=== PATIENT | female | born 1955 | race Caucasian/White ===

== ENCOUNTER 2019-08-13 13:53 | Outpatient (CLI) | payer OTHER, MEDICARE, SELFPAY ==
--- NOTE | ~2019-08-13 | XR_ITS ---
EXAMINATION: XR chest 2V EXAM DATE: 08/13/2019 14:13 INDICATION: Pneumonia. Cough. TECHNIQUE: Frontal and lateral projections of the chest obtained and reviewed. Comparison is made to prior examination from 05/28/2019. FINDINGS: The lungs are clear. There are no pleural effusions. The cardiomediastinal silhouette is within normal limits. There is no pneumothorax suspected. The bones and soft tissues are unremarkab le. Cervical fusion hardware. There are cholecystectomy clips. IMPRESSION: Unremarkable chest x-ray exam. Reviewed, dictated and finalized at location A. STILL OPERATOR
== END 2019-08-13 13:54 | disposition home or self-care (01) ==
LOC: ANHIMG 13:56
PROVIDERS: PCP Internal Medicine; Visit Provider Internal Medicine
DX: J18.9 Pneumonia, unspecified organism (principal)
CPT/HCPCS: 71046

== ENCOUNTER 2019-09-05 07:37 | Outpatient (CLI) | payer OTHER, MEDICARE, SELFPAY ==
--- NOTE | 2019-09-05 07:53 | ECHO_ITS ---
Patient Info Name: Desiree Ghosh Age: 63 years : 1955 Gender: Female Ht: 63 in Wt: 247 lbs BSA: 2.30 m2 HR: 65 bpm BP: 152 / 70 mmHg Technical Quality: Fair Exam Date: 09/05/2019 8:01 AM Exam Location: [facility] Pulmonary Patient Status: Outpatient Admit Date: 09/05/2019 Staff Ordering Physician: Nunu Spring MD Resident Athletic Trainer: Tato Tamez, AMARA, RT Attending Provider: Nunu Spring MD Referring Physician: Saw MILNER; Exam Type: CA echo doppler color flow Study Info Indications R06.02 - Shortness of breath Complete two-dimensional, color flow and Doppler transthoracic echocardiogram is performed. Summary 1. Left ventricular chamber dimension is normal. 2. Left ventricular systolic function is normal, estimated at 55-60%. 3. The left ventricular diastolic function is grade I diastolic dysfunction. 4. E/e' 9 is minimally elevated. 5. Global longitudinal strain is essentially normal at -16.9%. 6. No pulmonary hypertension, estimated pulmonary arterial systolic pressure is 34 mmHg. Left Ventricle E/e' 9 is minimally elevated. Global longitudinal strain is essentially normal at -16.9%. Left ventricular chamber dimension is normal. Left ventricular systolic function is normal, estimated at 55-60%. The left ventricular diastolic function is grade I diastolic dysfunction. Right Ventricle Right ventricular chamber dimension is not well visualized. Left Atria Left atrial chamber dimension is normal. Right Atria Right atrial chamber dimension is not well visualized. Aortic Valve Cannot determine number of aortic valve leaflets. The aortic valve is not well visualized. There is no aortic valve stenosis. There is no aortic valve regurgitation. Pulmonic Valve The pulmonic valve is not well visualized. Mitral Valve There is no mitral valve stenosis. There is no mitral valve regurgitation. Tricuspid Valve There is no tricuspid valve regurgitation. No pulmonary hypertension, estimated pulmonary arterial systolic pressure is 34 mmHg. Pericardium/Pleural There is no pericardial effusion. Inferior Vena Cava Normal inferior vena cava with >50% collapse upon inspiration consistent with normal right atrial pressure, 5 mmHg. Aorta The aortic root size at the sinus of Valsalva is not well visualized. Left Ventricular Outflow Tract Name Value Normal LVOT 2D LVOT Diameter 1.9 cm LVOT Doppler LVOT Peak Gradient 6 mmHg LVOT Mean Gradient 4 mmHg LVOT VTI 27 cm LVOT VTI/AV VTI Ratio 0.8 LVOT Stroke Volume 73 ml LVOT CO 4.8 l/min LVOT CI 2.1 l/min/m2 Pulmonic Valve Name Value Normal PV Doppler PV Peak Gradient
[2019-09-05 09:09] LABS: Alveolar/Arterial O2 Gradient 28.6 mmHg; Base Excess ABG 2.3 mEq/l (+/-2.0); Fractional Inspired Oxygen 21 %; HCO3 ABG 26.6 mEq/l (22.0-26.0); Methemoglobin ABG 0.2 %THb (0-1.5); Oxygen Saturation ABG 95.2 % (95.0-100.0); Oxyhemoglobin 93.4 % THb (90.0-100.0); PO2 ABG 73.2 mmHg (80.0-100.0); PO2 FiO2 Ratio Arterial Blood 3.49 %; Reduced Hemoglobin 6.4 %THb (0-5.0); Total Hemoglobin 13.7 g/dL (12.0-18.0)
[2019-09-05 09:11] LABS: Device ROOM AIR; Modified Allen's Test Pass; Site Drawn RIGHT RADIAL
--- NOTE | 2019-09-08 19:00 | P.PCNPFT_ITS ---
PFT Interpretation PFT Interpretation: DOS: 09/05/2019 REQUESTING: Dr. Spring REASON FOR TESTING: Shortness of breath PULMONARY FUNCTION TESTS Results are reproducible. Spirometry: Normal FEV1, FVC, and FEV1%. No change with bronchodilator. FEF25- 75% is 84%, increases 22% with bronchodilator. Lung volumes: Normal TLC and RV. Increase in RV/TLC ratio consistent with air trapping. Normal airway resistance. Diffusion: DLCO 65%, mildly decreased. Flow volume loop: Normal. IMPRESSION: Normal spirometry, mild air trapping which implies obstruction, and mild diffusion impairment. Lack of response to bronchodilator should not preclude use if clinically indicated. Nunu Spring MD
--- NOTE | 2019-09-08 19:03 | WPDSIXMINUTE ---
Six Minute Walk Six Minute Walk: DOS: 09/05/2019 REQUESTING: Dr. Spring REASON FOR TESTING: Shortness of breath SIX MINUTE WALK This test was conducted per ATS guidelines. Initial saturation was 98%, pulse 76. The patient walked for 6 minutes without stopping, completing 1000 feet/304 meters. Saturation at the end of the test was 96% and pulse was 89. IMPRESSION: Normal walk study without desaturation. No supplemental O2 needed with exertion. Nunu Spring MD
== END 2019-09-05 07:38 | disposition home or self-care (01) ==
PROVIDERS: PCP Internal Medicine; Visit Provider Internal Medicine Critical Care Medicine
DX: J44.9 Chronic obstructive pulmonary disease, unspecified (principal); Z12.2 Encounter for screening for malignant neoplasm of respiratory organs; R06.02 Shortness of breath; Z87.891 Personal history of nicotine dependence
CPT/HCPCS: 36600; 82375; 82805; 83050; 93306; 94060; 94618; 94726; 94729

== ENCOUNTER 2019-09-11 12:09 | Outpatient (CLI) | payer OTHER, MEDICARE, SELFPAY ==
--- NOTE | ~2019-09-11 | XR_ITS ---
EXAMINATION: XR knee RT 2V DATE: 09/11/2019 12:32 INDICATION: Right knee injury. TECHNIQUE: 2 views of right knee were obtained. COMPARISON: None. FINDINGS: Bone alignment is normal. No fracture. There is mild tricompartmental osteoarthritis. No kn ee joint effusion. IMPRESSION: 1. Mild right knee osteoarthritis. Reviewed, dictated and finalized at location A. ECTOR COLD WORKING
--- NOTE | ~2019-09-11 | XR_ITS ---
EXAMINATION: XR knee LT 2V DATE: 09/11/2019 12:32 INDICATION: Left knee injury. TECHNIQUE: 2 views of left knee were obtained. COMPARISON: None. FINDINGS: Bone alignment is normal. No fracture. There is mild tricompartmental osteoarthritis. No kn ee joint effusion. IMPRESSION: 1. Mild left knee osteoarthritis. Reviewed, dictated and finalized at location A. CTOR PEOPLESOFT
== END 2019-09-11 12:10 | disposition home or self-care (01) ==
PROVIDERS: PCP Internal Medicine; Visit Provider Internal Medicine
DX: S89.90XA Unspecified injury of unspecified lower leg, initial encounter (principal); M17.0 Bilateral primary osteoarthritis of knee
CPT/HCPCS: 73560

== ENCOUNTER 2019-09-19 07:50 | Outpatient (CLI) | payer OTHER, MEDICARE, SELFPAY ==
--- NOTE | ~2019-09-19 | DEXA_ITS ---
Bone Density Report Name: Desiree Ghosh Age: 63 Sex: Female Ethnicity: White Date of : 1955 Indication: postmenopausal; height loss; inflammatory bowel disease; prior fracture; asthma or emphysema; hysterectomy; Referring Provider: BRYN MONTOYA Study: Bone densitometry was performed. Exam Date: September 19, 2019 Accession number: [id number] Bone Density: Region BMD T-score Z-score Classification AP Spine (L1-L4) 0.948 -0.9 0.7 Normal Femoral Neck (Left) 0.789 -0.5 0.9 Normal Total Hip (Left) 1.123 1.5 2.6 Normal Total Hip Bilateral Avg 1.100 1.3 2.4 Normal Femoral Neck (Right) 0.783 -0.6 0.8 Normal Total Hip (Right) 1.075 1.1 2.2 Normal World Health Organization criteria for BMD impression classify patients as: Normal (T-score at or above -1.0), Osteopenia (T-score between -1.0 and -2.5), or Osteoporosis (T-score at or below -2.5). 10-year Fracture Risk: FRAX not reported because: All T-scores for Spine Total, Hip Total, Femoral Neck at or above -1.0 Previous Exams: Region Exam Age BMD T-score BMD Change BMD Change Date g/cm2 vs Baseline vs Previous AP Spine(L1-L4) 09/19/2019 63 0.948 -0.9 0.071(8.1%)# -0.013(-1.4%)# 04/20/2012 56 0.961 -0.8 0.084(9.6%)# 0.084(9.6%)02/11/2006 50 0.877 -1.5 Total Hip(Left) 09/19/2019 63 1.123 1.5 0.045(4.1%)# 0.066(6.2%)# 04/20/2012 56 1.057 0.9 -0.021(-2.0%)# -0.021(-2.0%)# 02/11/2006 50 1.078 1.1 Total Hip(Right) 09/19/2019 63 1.075 1.1 -0.010(-1.0%)# 0.020(1.9%)# 04/20/2012 56 1.055 0.9 -0.031(-2.8%)# -0.031(-2.8%)# 02/11/2006 50 1.085 1.2 *Denotes significance at 95% confidence level, LSC for AP Spine = 0.022 g/cm2, LSC for Total Hip = 0.027 g/cm2 Clinical Information Provided by Patient: Has had a low trauma fracture Has the following medical conditions: Asthma or Emphysema, Inflammatory bowel diseases, Hysterectomy Patient maximum height was 64 Menopause Age: 24 No regular weight bearing exercise Does not regularly consume dairy products Onset of menses at age 13 Number of children 2 Impression: The patient has normal bone mass. The patient has risk factors, including: previous fracture. No significant bone loss was observed. Discussion: BONE DENSITY IS ABOVE THE MINIMUM DESIRABLE LEVEL AT ALL SKELETAL SITES TESTED. This patient?s bone mineral density is above the minimum desirable level (T-score -1.0 or better) at all sites ann
== END 2019-09-19 07:51 | disposition home or self-care (01) ==
PROVIDERS: PCP Internal Medicine; Visit Provider Obstetrics & Gynecology
DX: Z13.820 Encounter for screening for osteoporosis (principal); R30.9 Painful micturition, unspecified; Z78.0 Asymptomatic menopausal state
CPT/HCPCS: 77080; 87077; 87086; 87088; 87186

== ENCOUNTER 2020-01-14 09:49 | Outpatient (CLI) | payer OTHER, MEDICARE, SELFPAY ==
[2020-01-14 10:23] LABS: Alanine Aminotransferase 16 U/L (4-35); Albumin Level 4.1 g/dL (3.5-5.1); Alkaline Phosphatase 127 U/L (38-126); Aspartate Amino Transferase 23 U/L (14-36); Bilirubin,Total 0.4 mg/dL (0.2-1.3); Blood Urea Nitrogen 20 mg/dL (7-17); Calcium 8.7 mg/dL (8.4-10.2); Carbon Dioxide 24 mmol/L (22-30); Chloride 105 mmol/L (98-107); Estimated Glomerular Filt Rate > 60; Glucose 130 mg/dL (65-105); Potassium 3.9 mmol/L (3.4-5.0); Sodium 137 mmol/L (137-145)
[2020-01-14 10:44] LABS: Creatinine Urine 128.6 mg/dL
[2020-01-14 10:47] LABS: MALB Creatinine Ratio 6.5 mg/g (0-30); Microalbumin Urine Random 8.4 mg/L (0-16.7)
[2020-01-14 10:48] LABS: Hemoglobin A1C 5.9 % (<5.7)
[2020-01-14 10:55] LABS: Thyroid Stimulating Hormone 0.979 uIU/mL (0.465-4.680)
== END 2020-01-14 09:50 | disposition home or self-care (01) ==
LOC: ANHLAB 09:56
PROVIDERS: PCP Internal Medicine; Visit Provider Internal Medicine
DX: E11.9 Type 2 diabetes mellitus without complications (principal); E03.9 Hypothyroidism, unspecified
CPT/HCPCS: 36415; 80053; 82043; 83036; 84443

== ENCOUNTER 2020-04-20 10:56 | Outpatient (CLI) | payer OTHER, MEDICARE, SELFPAY ==
[2020-04-20 12:01] LABS: Alanine Aminotransferase 15 U/L (4-35); Alkaline Phosphatase 106 U/L (38-126); Anion Gap 5 mmol/L (8-16); Aspartate Amino Transferase 22 U/L (14-36); Bilirubin,Total 0.5 mg/dL (0.2-1.3); Blood Urea Nitrogen 15 mg/dL (7-17); Calcium 9.2 mg/dL (8.4-10.2); Carbon Dioxide 33 mmol/L (22-30); Chloride 102 mmol/L (98-107); Estimated Glomerular Filt Rate > 60; Glucose 105 mg/dL (65-105); Potassium 4.2 mmol/L (3.4-5.0); Sodium 140 mmol/L (137-145)
[2020-04-20 12:07] LABS: Hemoglobin A1C 5.3 % (<5.7)
[2020-04-20 12:08] LABS: Creatinine Urine 218.7 mg/dL
[2020-04-20 12:12] LABS: MALB Creatinine Ratio 7.2 mg/g (0-30); Microalbumin Urine Random 15.7 mg/L (0-16.7)
== END 2020-04-20 10:57 | disposition home or self-care (01) ==
PROVIDERS: PCP Internal Medicine; Visit Provider Internal Medicine
DX: E03.9 Hypothyroidism, unspecified (principal); E11.9 Type 2 diabetes mellitus without complications; I10 Essential (primary) hypertension
CPT/HCPCS: 36415; 80053; 82043; 83036

== ENCOUNTER 2020-04-30 10:47 | Outpatient (CLI) | payer OTHER, MEDICARE, SELFPAY | END 2020-04-30 10:48 | disposition home or self-care (01) | LOC: ANHLAB 10:49 | PROVIDERS: PCP Internal Medicine; Visit Provider Internal Medicine | DX: Z20.828 Contact with and (suspected) exposure to other viral communicable diseases (principal) | CPT/HCPCS: 36415; 86769 ==

== ENCOUNTER 2020-05-08 07:34 | Outpatient (CLI) | payer OTHER, MEDICARE, SELFPAY ==
--- NOTE | ~2020-05-08 | NM_ITS ---
EXAMINATION: NM dayami stress w perfusion DATE: 05/08/2020 11:40 INDICATION: Chest pain. Hypertension. TECHNIQUE: Rest images were obtained following intravenous administration of 10 mCi Tc99m tetrofosmin (Myoview). The patient was infused intravenously with Lexiscan (Regadenoson). Then, 81.4 mCi Tc99m t etrofosmin (Myoview) was administered intravenously, and stress images were obtained. Stress images w ere obtained in both supine and prone position. Data was reconstructed into short axis and horizontal and vertical long axis SPECT images. Gated SPECT images were also obtained. COMPARISON: None. FINDINGS: Likely breast attenuation artifact along the anterior and anterolateral wall on the supine rest and stress images which normalizes on the prone post stress images. There is no definite reversi ble or fixed perfusion abnormality to suggest ischemia or infarction. There is normal left ventricul ar chamber size, wall motion and ejection fraction. Left ventricular ejection fraction measures >70% . IMPRESSION: 1. Normal myocardial perfusion at rest and during stress. 2. Left ventricular ejection fraction measuring >70%. Reviewed, dictated and finalized at location B.
--- NOTE | 2020-05-08 07:45 | EST_ITS ---
Patient Info Name: Desiree Ghosh Age: 64 years : 1955 Gender: Female Exam Date: 05/08/2020 9:22 AM Exam Location: [facility] Stress Patient Status: Outpatient Admit Date: 05/08/2020 Staff Ordering Physician: Keshav Cullen MD Attending Provider: Keshav Cullen MD Exercise Technologist: Tessa Lucas RDCS Exam Type: CA stress dayami w NM Study Info Indications R07.89 - Other chest pain A regadenoson stress test was performed. Summary 1. 1. Negative lexiscan stress test for ischemic ST changes by ECG criteria. 2. 2. Baseline hypertension. 3. 3. Nuclear scan to follow and will be reported separately. Please correlate with it. 4. 4. Patient informed of the above results. Protocol: Lexiscan Stress ECG Details Stage: REST Duration (min): 3 min : 41 sec HR (bpm): 62 SBP (mmHg): 146 DBP (mmHg): 83 Stage: REST Duration (min): 12 min : 50 sec HR (bpm): 71 SBP (mmHg): 146 DBP (mmHg): 83 Stage: STAGE 1 Duration (min): 1 min : 0 sec HR (bpm): 93 SBP (mmHg): 169 DBP (mmHg): 79 Stage: RECOVERY Duration (min): 1 min : 0 sec HR (bpm): 85 SBP (mmHg): 173 DBP (mmHg): 83 Stage: RECOVERY Duration (min): 2 min : 0 sec HR (bpm): 76 SBP (mmHg): 173 DBP (mmHg): 83 Stage: RECOVERY Duration (min): 3 min : 0 sec HR (bpm): 72 SBP (mmHg): 150 DBP (mmHg): 84 Stage: RECOVERY Duration (min): 3 min : 3 sec HR (bpm): 72 SBP (mmHg): 150 DBP (mmHg): 84 Rest HR: 71 bpm Peak HR: 93 bpm Rest Sys BP: 146 mmHg Peak Sys BP: 173 mmHg Max Pred HR: 157 bpm % Max Pred HR: 59 % Target HR: 133 bpm Max RPP: 16,089 bpm*mmHg Termination Reason: Completed protocol Cardiac Symptoms: Shortness of breath, Headache Total Time: 1 min : 0 sec Rest Alfaro BP: 83 mmHg Peak Alfaro BP: 83 mmHg Total Dose: 0.4 mg Resting ECG Sinus rhythm, borderline T wave in high lateral leads. Stress ECG No ST changes. Arrhythmias None. Report Signatures
== END 2020-05-08 07:35 | disposition home or self-care (01) ==
PROVIDERS: PCP Internal Medicine; Visit Provider Internal Medicine
DX: R07.89 Other chest pain (principal); I10 Essential (primary) hypertension
CPT/HCPCS: 78452; 93017; A9502; J2785

== ENCOUNTER 2020-05-21 10:01 | Outpatient (CLI) | payer OTHER, MEDICARE, SELFPAY ==
--- NOTE | ~2020-05-21 | MM_ITS ---
EXAMINATION: MM screening bijal BI w eileen HISTORY: Screening mammogram, family history of breast cancer in her sister. TECHNIQUE: Craniocaudal and mediolateral oblique 3-D tomosynthesis images were obtained and synthetic 2-D images were generated. CAD analysis was submitted and interpreted. COMPARISON: 02/22/2019, 07/16/2014, 01/11/2013, 04/20/2012 BREAST PARENCHYMAL COMPOSITION: There are scattered areas of fibroglandular density. FINDINGS: There is no evidence of suspicious mass, calcification, or architectural distortion to sugg est malignancy in either breast. There has been no suspicious interval change. IMPRESSION: 1. No mammographic evidence of malignancy. 2. Recommend routine screening mammography in one year. BI-RADS Category 1: Negative Reviewed, dictated and finalized at location A. R ENTRY ADMINISTRATOR
== END 2020-05-21 10:02 | disposition home or self-care (01) ==
LOC: ANHIMG 10:05
PROVIDERS: PCP Internal Medicine; Visit Provider Internal Medicine
DX: Z12.31 Encounter for screening mammogram for malignant neoplasm of breast (principal)
CPT/HCPCS: 77063; 77067

== ENCOUNTER 2020-06-01 11:32 | Outpatient (CLI) | payer OTHER, MEDICARE, SELFPAY ==
[2020-06-01 12:24] LABS: Anion Gap 7 mmol/L (8-16); Blood Urea Nitrogen 15 mg/dL (7-17); Calcium 9.1 mg/dL (8.4-10.2); Carbon Dioxide 33 mmol/L (22-30); Chloride 99 mmol/L (98-107); Estimated Glomerular Filt Rate > 60; Glucose 139 mg/dL (65-105); Potassium 3.5 mmol/L (3.4-5.0); Sodium 139 mmol/L (137-145)
== END 2020-06-01 11:33 | disposition home or self-care (01) ==
LOC: ANHLAB 11:34
PROVIDERS: PCP Internal Medicine; Visit Provider Internal Medicine
DX: I10 Essential (primary) hypertension (principal)
CPT/HCPCS: 36415; 80048

== ENCOUNTER 2020-07-24 11:39 | Outpatient (CLI) | payer OTHER, MEDICARE, SELFPAY ==
[2020-07-24 12:17] LABS: Alanine Aminotransferase 39 U/L (4-35); Albumin Level 4.2 g/dL (3.5-5.1); Alkaline Phosphatase 79 U/L (38-126); Anion Gap 6 mmol/L (8-16); Aspartate Amino Transferase 36 U/L (14-36); Bilirubin,Total 0.6 mg/dL (0.2-1.3); Blood Urea Nitrogen 16 mg/dL (7-17); Carbon Dioxide 32 mmol/L (22-30); Chloride 100 mmol/L (98-107); Cholesterol 231 mg/dL (0-200); Estimated Glomerular Filt Rate > 60; Glucose 102 mg/dL (65-105); HDL Direct 35 mg/dL; Potassium 3.8 mmol/L (3.4-5.0); Sodium 138 mmol/L (137-145); Triglycerides 172 mg/dL (<150)
[2020-07-24 12:28] LABS: Hemoglobin A1C 5.3 % (<5.7); LDL Cholesterol Direct 167 mg/dL
[2020-07-24 12:41] LABS: Creatinine Urine 178.7 mg/dL
[2020-07-24 12:47] LABS: Microalbumin Urine Random 10.7 mg/L (0-16.7); Thyroid Stimulating Hormone 0.598 uIU/mL (0.465-4.680)
[2020-07-24 12:58] LABS: Vitamin D 25 Hydroxy 27.6 ng/mL
== END 2020-07-24 11:40 | disposition home or self-care (01) ==
PROVIDERS: PCP Internal Medicine; Visit Provider Internal Medicine
DX: E03.9 Hypothyroidism, unspecified (principal); E11.9 Type 2 diabetes mellitus without complications; E55.9 Vitamin D deficiency, unspecified; E78.2 Mixed hyperlipidemia; G47.33 Obstructive sleep apnea (adult) (pediatric); I10 Essential (primary) hypertension; M79.7 Fibromyalgia; Z99.89 Dependence on other enabling machines and devices
CPT/HCPCS: 36415; 80053; 80061; 82043; 82306; 83036; 84443

== ENCOUNTER 2020-11-16 13:29 | Emergency (ER) | payer OTHER, MEDICARE, SELFPAY ==
[2020-11-16 14:03] VITALS: BP 140/89; PULSE 68; RESP 18; TEMP 35.6; O2SAT 96
--- NOTE | 2020-11-16 15:13 | ED.GENADULT ---
HPI - General Adult General Chief complaint: Recheck/Abnormal Lab/Rx Stated complaint: nosebleed hx htn Time Seen by Provider: 11/16/20 14:39 Source: patient, family and RN notes reviewed Mode of arrival: ambulatory Limitations: no limitations History of Present Illness HPI narrative: Patient is a 65-year-old female who presents to emergency department for evaluation of epistaxis that occurred earlier today and resolved patient notes that she felt as though it came on acutely lasted 15 minutes and has resolved no active bleeding since denies any URI symptoms is followed by ENT Dr. Rowland patient denies any other complaints specifically no anticoagulant use in the history patient notes that she plans to see her ENT and will contact him patient on arrival is in no distress denies any complaints Related Data Home Medications Medication Instructions Recorded Confirmed metformin 500 mg tablet 500 mg PO DAILY 10/13/20 11/12/20 Allergies Allergy/AdvReac Type Severity Reaction Status Date / Time acetaminophen Allergy Unknown nausea Verified 11/16/20 14:34 [From Darvocet-N] ciprofloxacin Allergy Unknown BLISTERS Verified 11/16/20 14:34 metronidazole [From Flagyl] Allergy Unknown blisters Verified 11/16/20 14:34 pentazocine [From Talwin] Allergy Unknown Nausea Verified 11/16/20 14:34 propoxyphene Allergy Unknown nausea Verified 11/16/20 14:34 [From Darvocet-N] codeine AdvReac Severe N/V Verified 11/16/20 14:34 Review of Systems Review of Systems: All systems reviewed & are unremarkable except as noted in HPI and below PMFSH Past Medical History Medical History Arthritis Claustrophobia Constipation Depression Diabetes Diarrhea Dizziness GERD (gastroesophageal reflux disease) High cholesterol History of tobacco abuse Hypothyroidism Kidney stones Light headedness ОЛЕГ (obstructive sleep apnea) Recurrent infections Shortness of Breath Sleep apnea Vertigo Wears glasses Family History Family History Sibling Family history of lung cancer Carcinoma of colon Family history of primary malignant neoplasm of liver Father Alcoholism Hypertension Depression Heart disease Mother Hypertension Depression Heart disease Other Arthritis Asthma Breast cancer Cerebrovascular accident Diabetes mellitus Family history of allergic disorder Family history of cardiovascular disease Family history of chronic obstructive pulmonary disease Family history of kidney disease Family history of malignant neoplasm Family history of osteoarthritis Family history of osteoporosis High cholesterol Lung disease Neuropathy Social History Social History Smoking packs per day: 1 Smoking cigarettes per day: 20.0 Years smoked: 30 Smoking pack-years: 30.00 Smoking status: Former smoker Smoking end date: 10/08/04 Alcohol intake: current Substance use: never Substance use type: does not use Gender identity (if verbalized by the patient): Female Exam Narrative: Exam Narrative: GENERAL: Well-appearing, well-nourished, and in no acute distress. HEAD: Normocephalic, atraumatic. EYES: PERRLA and EOMI. ENT: Nares clear, no rhinorrhea or epistaxis. Mucous membranes moist. Oropharynx without tonsillar hypertrophy exudate or other lesions. CHEST: Clear to auscultation. No respiratory distress. No wheezes rales or rhonchi HEART: Regular rate and rhythm. No murmur heard. EXTREMITIES: Normal range of motion. No edema. SKIN: Warm, dry, no rash. NEURO: No focal deficits. Alert and oriented x3. PSYCH: Normal mood and affect. Course Course Emergency Course: Patient evaluated emergency department no active bleeding there are no areas in the nares that appear to be responsible for the bleeding patient was given instructions on what
[2020-11-16 15:21] VITALS: BP 139/72; PULSE 58; RESP 18; O2SAT 97
== END 2020-11-16 15:29 | disposition home or self-care (01) ==
PROVIDERS: Emergency Provider Emergency Medicine; PCP Internal Medicine
DX: R04.0 Epistaxis (principal); E11.9 Type 2 diabetes mellitus without complications; K21.9 Gastro-esophageal reflux disease without esophagitis; E78.00 Pure hypercholesterolemia, unspecified; E03.9 Hypothyroidism, unspecified; G47.33 Obstructive sleep apnea (adult) (pediatric); G47.30 Sleep apnea, unspecified
CPT/HCPCS: 99283

== ENCOUNTER 2021-03-16 11:04 | Outpatient (CLI) | payer OTHER, MEDICARE, SELFPAY ==
--- NOTE | ~2021-03-16 | XR_ITS ---
EXAMINATION: XR abdomen/kub 1V EXAM DATE: 03/16/2021 11:30 INDICATION: Kidney stones right-sided. TECHNIQUE: Frontal projection of the upper abdomen, frontal projection lower abdomen/pelvis for inter pretation. Correlation is made to CT abdomen pelvis 05/26/2017. FINDINGS: There is expected amount of colonic stool and gas. No small bowel dilation, nonobstructiv e bowel gas pattern. Calcifications in the pelvis are believed to be phleboliths. There are no susp icious calcifications identified. There is no organomegaly suspected. There are bony degenerative changes. IMPRESSION: Unremarkable abdomen x-ray exam. Reviewed, dictated and finalized at location A.
== END 2021-03-16 11:05 | disposition home or self-care (01) ==
PROVIDERS: PCP Internal Medicine; Visit Provider Urology
DX: N20.0 Calculus of kidney (principal)
CPT/HCPCS: 74018

== ENCOUNTER 2021-06-11 13:58 | Outpatient (CLI) | payer OTHER, MEDICARE, SELFPAY ==
--- NOTE | 2021-06-11 15:03 | ECG_ITS ---
Measurements Intervals Simpson Rate: 53 P: 42 MT: 177 QRS: 33 QRSD: 88 T: 53 QT: 434 QTc: 408 Interpretive Statements SINUS BRADYCARDIA VOLTAGE CRITERIA FOR LVH MINIMAL Q WAVES- INFERIOR LEADS BASELINE ARTIFACT- II, III BORDERLINE ECG Electronically Signed On 06-11-2021 15:30:54 LOADER HELPER by Rigo Riddle D.O.
[2021-06-11 15:52] LABS: Basophils Absolute Auto 0.1 K/mm3 (0.0-0.1); Eosinophils Absolute Auto 0.1 K/mm3 (0-0.3); Eosinophils Percent Auto 1.5 % (0-4.4); Hematocrit 41.3 % (37.0-47.0); Hemoglobin 14.1 g/dL (12.0-15.0); Immature Granulocyte Absolute 0.02 K/mm3 (0.00-0.031); Immature Granulocyte Percent A 0.2 % (0-0.5); Lymphocytes Absolute Auto 2.85 K/mm3 (0.9-3.2); Lymphocytes Percent Auto 35.6 % (18.3-44.2); Mean Corpuscular HGB Conc 34.1 g/dl (32-36); Mean Corpuscular Hemoglobin 32.1 pg (26-34); Mean Corpuscular Volume 94.1 fl (80-100); Mean Platelet Volume 9.9 fl (7.4-10.4); Monocytes Absolute Auto 0.6 K/mm3 (0.1-0.6); Monocytes Percent Auto 7.4 % (2.6-8.5); Neutrophils Absolute Auto 4.4 K/mm3 (1.3-6.7); Neutrophils Percent Auto 54.3 % (45.5-73.1); Platelet Count Result 242 k/mm3 (150-375); Red Blood Count 4.39 M/mm3 (4.2-5.4); Red Cell Distribution Width 12.2 % (11.5-14.5)
[2021-06-11 15:59] LABS: Add Urine Microscopic? YES; Appearance Urine Clear (Clear); Bilirubin Urine Negative (Negative); Blood Urine 1+ (Negative); Color Urine Straw (Yellow); Glucose Urine UA Negative (Negative); Ketones Urine Negative (Negative); Leukocyte Esterase Ur Negative LEU/UL (Negative); Mucus Urine Rare /lpf; Nitrate Urine Negative (Negative); Protein Urine Negative (Negative); RBC Urine 0-2 /hpf (0-2); Squamous Epithelial Cell Urine Rare /hpf (Few); Urobilinogen Urine Negative mg/dL (<2.0); WBC Urine 0-3 /hpf
[2021-06-11 16:02] LABS: Hemoglobin A1C 4.8 % (<5.7)
[2021-06-11 16:08] LABS: Albumin Level 4.6 g/dL (3.5-5.1); Carbon Dioxide 29 mmol/L (22-30); Estimated Glomerular Filt Rate > 60; INR 0.9; Prothrombin Time 12.4 Seconds (11.1-14.7)
[2021-06-11 16:09] LABS: Partial Thromboplastin Time 31.2 SECONDS (22.3-36.8)
[2021-06-11 16:31] LABS: Urine Cotinine NEGATIVE
[2021-06-11 18:13] LABS: Anion Gap 7 mmol/L (8-16); Blood Urea Nitrogen 18 mg/dL (7-17); Calcium 9.4 mg/dL (8.4-10.2); Chloride 101 mmol/L (98-107); Glucose 89 mg/dL (65-110); Potassium 3.8 mmol/L (3.4-5.0); Sodium 137 mmol/L (137-145)
== END 2021-06-11 13:59 | disposition home or self-care (01) ==
LOC: ANHSURGERY 14:02
PROVIDERS: PCP Internal Medicine; Visit Provider Orthopaedic Surgery
DX: M17.11 Unilateral primary osteoarthritis, right knee (principal); Z01.818 Encounter for other preprocedural examination; R94.31 Abnormal electrocardiogram [ECG] [EKG]
CPT/HCPCS: 80048; 80307; 81001; 82040; 83036; 85025; 85610; 85730; 86850; 86900; 86901; 87081; 93005

== ENCOUNTER → 2021-06-19 01:07 | Outpatient (CLI) | payer OTHER, MEDICARE, SELFPAY ==
[2021-06-19 20:10] LABS: SARS-CoV-2 RNA PCR Negative
== END ==
PROVIDERS: PCP Internal Medicine; Visit Provider Orthopaedic Surgery
DX: Z01.812 Encounter for preprocedural laboratory examination (principal); Z20.822 Contact with and (suspected) exposure to COVID-19
CPT/HCPCS: C9803; U0003; U0005

== ENCOUNTER → 2021-07-24 00:16 | Outpatient (CLI) | payer OTHER, MEDICARE, SELFPAY ==
[2021-07-24 14:36] LABS: SARS-CoV-2 RNA PCR Negative
== END ==
PROVIDERS: PCP Internal Medicine; Visit Provider Orthopaedic Surgery
DX: Z01.812 Encounter for preprocedural laboratory examination (principal); Z20.822 Contact with and (suspected) exposure to COVID-19
CPT/HCPCS: C9803; U0003; U0005

== ENCOUNTER 2021-07-28 00:55 | Day surgery (SDC) | payer OTHER, MEDICARE, SELFPAY ==
[2021-06-11 14:07] VITALS: BMI 37.9
--- NOTE | 2021-06-11 14:44 | PC.NURSE ---
Addendum entered by Veronica Caba RN 07/22/21 10:53: PT TO ARRIVE AT 0830 ON 07/28/21 FOR OR AT 1030. COVID TEST 07/24 AT 0920. Original Note: Report to the Outpatient Waiting Room, entrance under the green pavilion located off [facility], at time _0900 on date _06/22/21 . OR Time: 1100 . - You and your visitor will be asked a series of questions to screen for COVID 19 for your protection. - A mask is required within the hospital. - Only one visitor is allowed at this time. Patient visitors will be guided where to wait when not with patient. Preoperative COVID Testing Requirements: No COVID Test needed if: (proof is required; if not received patient will have Rapid Test prior to entry) - Patient has received COVID Vaccine at least 14 days prior to procedure date or - Patient has positive COVID test result within last 90 days of surgery date. COVID TESTING 06/19/21 AT 0835 COVID Test needed if above criteria is not met If not COVID vaccinated a COVID test must be conducted within 72 hours of surgery and patient is asked to isolate self from time of testing until procedure. You will go to the [facility] for your COVID testing. The [facility] Testing site is located at the corner of [address] [facility]. You will only be called if COVID results are positive and your surgeon may reschedule your elective surgery date. Patients may have clear liquids (water, carbonated beverages, clear teas, apple juice) until 3 hours prior to surgery with a maximum of 20 ounces. - No food from midnight until time of surgery - Infants may have breast milk until 4 hours before surgery, infant formula 6 hours prior to surgery. - Children will be allowed to drink immediately following surgery. If applicable, please bring a bottle or sippy cup to assist with drinking. Juice, water, soda, and popsicles are readily available. For infants on formula, please bring formula the day of surgery. Pacifiers are allowed. Take the following medications with a SIP of water the morning of surgery: _ATENOLOL,LEVOTHYROXINE AND VENLAFAXINE Medications to discontinue per physician __IBUPROFEN PER DR DAHL Date to take last dose Please no make-up, nail romansh, hairspray, perfume, deodorant, or body powder the day of surgery. No jewelry (including any body piercings) or valuables the day of surgery, leave them at home. Please take a shower or bath the night before, or the morning of, surgery with an antibacterial soap. Wear comfortable, loose fitting clothing. Children are encouraged to wear pajamas. - Jewelry must be removed prior to entering the operating room. Rings and piercings that are not removed may be cut off. - The hospital will not accept responsibility for valuables. - Please leave all valuables, including medications, at home the day of surgery. If you are going home after surgery, a licensed local driver must drive you home. - NO public transportation without another adult. - We recommend that an adult stay with you for 24 hours following discharge. - We also recommend that you do not drive, make important decision, drink alcoholic beverages, or take any drugs that were not prescribed by your health care provider for at least 24 hours after your discharge time. For Pediatric surgeries, we recommend two adults accompany the child home (only one inside the building at this time). Follow any additional instructions given to you from your surgeon. VERBAL instructions given to __PATIENT and asked if any additional questions and then verbalized understanding. Patient advised to call surgeon office or pre surgery nurse liaison [phone] if any additional questions.
[2021-06-11 15:03] VITALS: BP 153/72; PULSE 63; RESP 16; TEMP 36.6; O2SAT 98
--- NOTE | 2021-07-22 10:54 | PC.NURSE ---
Pt states no changes in medications or health history since initial interview. New instructions reviewed with pt. Pt denies further questions at this time.
--- NOTE | 2021-07-27 15:26 | WPDANESEPPF ---
Anes - Initial Pre Proc Eval Procedure: Operation Date: 07/28/21 10:30 Proposed Procedures p Right Total Knee Arthroplasty - Bhanu Lehman MD Date/Time: 07/27/21 15:26 Surgeon: Bhanu Lehman MD Pre Op Diagnosis: right knee DJD Patient Data Age: 65 Gender: F Height: 1.61 m Weight: 98.6 kg Last Vital Signs Temp 36.6 C 06/11/21 15:03 Pulse 63 06/11/21 15:03 Resp 16 06/11/21 15:03 BP 153/72 H 06/11/21 15:03 Pulse Ox 98 06/11/21 15:03 Allergies Allergy/AdvReac Type Severity Reaction Status Date / Time pentazocine [From Talwin] Allergy Severe Nausea Verified 07/28/21 08:56 ciprofloxacin Allergy Unknown BLISTERS Verified 07/28/21 08:56 metronidazole [From Flagyl] Allergy Unknown blisters Verified 07/28/21 08:56 propoxyphene Allergy Unknown nausea Verified 07/28/21 08:56 [From Darvocet-N] codeine AdvReac Severe N/V Verified 07/28/21 08:56 Home Medications Medication Instructions Recorded Confirmed Type atenolol 50 mg tablet 50 mg PO DAILY #90 tablet 11/09/20 07/22/21 Rx ezetimibe 10 mg tablet See Rx Instructions .ROUTE 01/29/21 07/22/21 Rx .COMPLEX #90 tablet ondansetron HCl 4 mg tablet 4 mg PO Q8H PRN #14 tablet 02/23/21 07/22/21 Rx levothyroxine 88 mcg tablet 88 mcg PO DAILY #90 tablet 04/23/21 07/22/21 Rx albuterol sulfate 90 mcg/actuation 1 - 2 puff INHALATION Q4-6H PRN 05/07/21 07/22/21 Rx aerosol inhaler #8.5 g omeprazole 20 mg capsule,delayed 20 mg PO BID 05/07/21 07/22/21 History release atorvastatin 80 mg tablet See Rx Instructions .ROUTE 05/18/21 07/22/21 Rx .COMPLEX #90 tablet semaglutide 7 mg tablet 7 mg PO DAILY 90 Days #90 tablet 05/18/21 07/22/21 Rx ibuprofen 400 mg PO Q6H PRN 06/11/21 07/22/21 History lisinopril 40 mg tablet 40 mg PO DAILY #90 tablet 07/14/21 07/22/21 Rx venlafaxine 150 mg See Rx Instructions .ROUTE 07/14/21 07/22/21 Rx capsule,extended release 24 hr .COMPLEX #90 each Patient hx anesthesia problems: none Family hx anesthesia problems: none Results Review: All pre-operative results and documents have been reviewed as part of the pre-operative evaluation. [facility] Past Medical History Medical History (Updated 07/27/21 @ 15:27 by Joseph Andre MD) Arthritis Asthma Claustrophobia Close exposure to COVID-19 virus Constipation Depression Diabetes Diarrhea Dizziness Essential hypertension Fibromyalgia GERD (gastroesophageal reflux disease) High cholesterol History of tobacco abuse Hyperlipemia, mixed Hypothyroidism Kidney stones Light headedness Obesity (BMI 30-39.9) ОЛЕГ (obstructive sleep apnea) ОЛЕГ on CPAP Recurrent infections Shortness of Breath Sleep apnea Vertigo Wears glasses Family History Family History Sibling Family history of lung cancer Carcinoma of colon Family history of primary malignant neoplasm of liver Father Alcoholism Hypertension Depression Heart disease Mother Hypertension Depression Heart disease Other Arthritis Asthma Breast cancer Cerebrovascular accident Diabetes mellitus Family history of allergic disorder Family history of cardiovascular disease Family history of chronic obstructive pulmonary disease Family history of kidney disease Family history of malignant neoplasm Family history of osteoarthritis Family history of osteoporosis High cholesterol Lung disease Neuropathy Social History Social History Smoking packs per day: 1 Smoking cigarettes per day: 20.0 Years smoked: 30 Smoking pack-years: 30.00 Tobacco type: cigarettes Second hand tobacco smoke exposure: Yes Smoking end date: 10/08/04 Alcohol intake: current Drinks per week: 6 Alcohol use details: Social Substance use: never Substance use type: does not use Living arrangements: with family Gender identity (if verbalized by the patient): Female Spiritual care
--- NOTE | 2021-07-27 15:29 | WPDANESPNB ---
Anes - Peripheral Nerve Block Date/Time: 07/27/21 15:29 I have discussed with the patient/family/POA the placement of a peripheral nerve block for post-operative pain management, including associated risks, benefits, complications, and side effects. Alternative methods of post-operative analgesia were detailed. Questions were solicited and answers provided to the satisfaction of the patient/family/POA. Time-Out: A pre-procedural Time-Out was completed immediately before starting the procedure and confirmed: Patient Identification, Site, Procedure, Patient Position and the Availability of Requisite Equipment. Clinical Indications: Acute post-operative pain management requested by the operative surgeon. Nerve Block Insertion Note Anes-nerve block: adductor canal right Patient position: supine Skin prep: chlorhexidine Needle: 22 gauge, stimulating, insulated echogenic needle. Needle length: 80 mm Technique: ultrasound Technique comment: in plane Injectate: bupivacaine 0.5% with epi 5 mcg/ml (30cc) Observations: tolerated well Complications: none Procedure start time:: 1145 Procedure end time:: 1150
[2021-07-28] VITALS (15 sets, daily range): BP systolic 119–160; BP diastolic 65–97; PULSE 59–96; RESP 12–22; TEMP 36–37.3; O2SAT 95–100; BMI 37.5
--- NOTE | ~2021-07-28 | XR_ITS ---
EXAMINATION: XR knee RT 2V DATE: 07/28/2021 14:23 INDICATION: Postoperative evaluation following right total knee arthroplasty. TECHNIQUE: Anteroposterior and lateral views of the right knee were obtained. COMPARISON: 03/29/2021 FINDINGS: Right total knee arthroplasty without patellar resurfacing appears well seated and in near anatomic a lignment. No fractures identified. Expected postoperative subcutaneous, intramedullary and intra-art icular gas. IMPRESSION: 1. Right total knee arthroplasty, negative for postoperative purposes. Reviewed, dictated and finalized at location A. ER TROLL LINE
--- NOTE | 2021-07-28 07:22 | WPDHPUPDATE1 ---
History and Physical Update Update Date/Time: 07/28/21 07:22 History and Physical has been reviewed, including an updated exam of the patient. There are NO changes in the patient's condition. Risks, benefits, and alternatives have been discussed and questions answered. Patient agrees to proceed with procedure.
[2021-07-28 09:20] LABS: Glucose Point of Care 83 mg/dl (65-105)
[2021-07-28] MEDS: LACTATED RINGERS 1,000 ML 30 ML IV CONT ×2 (09:20→14:12)
[2021-07-28] MEDS: ACETAMINOPHEN 500 MG TABLET 1000 MG PO (09:30)
[2021-07-28] MEDS: TRANEXAMIC ACID 1,000MG/ISO100 1,000 MG/100 ML BAG 200 MG IVPB (09:30)
--- NOTE | 2021-07-28 11:37 | PM.IMHP ---
H&P: HPI History of Present Illness Date/Time: 07/28/21 11:37Pt presents with pain in the Right knee. She states she is still having frequent falls. She has had 2 previous rt knee arthroscopies (). 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 She currently has constant diffuse pain/swelling. Her pain occasionally presents as a shooting pain at the anterior/superior aspect, and occasionally lateral. She recently had a fall on ~03/13/21 and landed on the right knee. Her most recent cortisone injection was 11/12/20. She is here, today, to discuss surgical intervention. Involved knee: right Onset: gradual Location of pain: medial, lateral, anterior and superior Pain scale (0-10): 9 Character: throbbing and shooting Timing of pain: constant Exacerbated by: weight bearing, squatting, stairs, rotational activities and prolonged activity Relieved by: ice and rest Associated symptoms: Reports swelling, popping, instability and giving way History of occupational/recreational activity with repetitive motion: No History of prior knee injury: Yes (Rt knee arthroscopy x2 ()) Prior treatment: surgery Chief Complaint: RIGHT KNEE PAIN Review of Systems Review of Systems: All systems reviewed & are unremarkable except as noted in HPI and below PMFSH Past Medical History Medical History Arthritis Asthma Claustrophobia Close exposure to COVID-19 virus Constipation Depression Diabetes Diarrhea Dizziness Essential hypertension Fibromyalgia GERD (gastroesophageal reflux disease) High cholesterol History of tobacco abuse Hyperlipemia, mixed Hypothyroidism Kidney stones Light headedness Obesity (BMI 30-39.9) ОЛЕГ (obstructive sleep apnea) ОЛЕГ on CPAP Recurrent infections Shortness of Breath Sleep apnea Vertigo Wears glasses Family History Family History Sibling Family history of lung cancer Carcinoma of colon Family history of primary malignant neoplasm of liver Father Alcoholism Hypertension Depression Heart disease Mother Hypertension Depression Heart disease Other Arthritis Asthma Breast cancer Cerebrovascular accident Diabetes mellitus Family history of allergic disorder Family history of cardiovascular disease Family history of chronic obstructive pulmonary disease Family history of kidney disease Family history of malignant neoplasm Family history of osteoarthritis Family history of osteoporosis High cholesterol Lung disease Neuropathy Social History Social History Smoking packs per day: 1 Smoking cigarettes per day: 20.0 Years smoked: 30 Smoking pack-years: 30.00 Tobacco type: cigarettes Second hand tobacco smoke exposure: Yes Smoking end date: 10/08/04 Alcohol intake: current Drinks per week: 6 Alcohol use details: Social Substance use: never Substance use type: does not use Living arrangements: with family Gender identity (if verbalized by the patient): Female Spiritual care concerns: No Meds Home Medications and Allergies Home Medications Medication Instructions Recorded Confirmed Type atenolol 50 mg tablet 50 mg PO DAILY #90 tablet 11/09/20 07/22/21 Rx ezetimibe 10 mg tablet See Rx Instructions .ROUTE 01/29/21 07/22/21 Rx .COMPLEX #90 tablet ondansetron HCl 4 mg tablet 4 mg PO Q8H PRN #14 tablet 02/23/21 07/22/21 Rx levothyroxine 88 mcg tablet 88 mcg PO DAILY #90 tablet 04/23/21 07/22/21 Rx albuterol sulfate 90 mcg/actuation 1 - 2 puff INHALATION Q4-6H PRN 05/07/21 07/22/21 Rx aerosol inhaler #8.5 g omeprazole 20 mg capsule,delayed 20 mg PO BID 05/07/21 07/22/21 History release atorvastatin 80 mg tablet See Rx Instructions .ROUTE 05/18/21 07/22/21 Rx .COMPLEX #90 tablet semaglutide 7 mg tablet 7 mg PO DAILY 90 Days #90 tablet 05/18/21 07/22/21 Rx
[2021-07-28] MEDS: ceFAZolin 2 GM/D5W 50 ML 2 GM/50 ML BAG IVPB ×2 (11:56→20:00)
[2021-07-28] MEDS: TRANEXAMIC ACID 1,000 MG/10 ML AMPUL 1000 MG IV PUSH (13:22)
[2021-07-28] MEDS: fentaNYL CITRATE INJ (*CRX) 100 MCG/2 ML VIAL 25 MCG IV PUSH ×8 (14:15→15:27)
[2021-07-28 14:29] LABS: Glucose Point of Care 145 mg/dl (65-105)
--- NOTE | 2021-07-28 14:35 | W.PM.PROC2 ---
Procedure Note - Detailed Date of Procedure 07/28/21 Pre-op Diagnosis right knee DJD Post-op Diagnosis same Procedure Performed R TKA Surgeon Bhanu Lehman MD Anesthesia general Description of Procedure THE RIGHT KNEE WAS PREPPED AND DRAPED IN THE STERILE FASHION. THERE WAS A 10 DEGREE FLEXION CONTRACTURE. A MIDLINE SKIN INCISION WAS MADE. A MEDIAL PARAPATELLAR ARTHROTOMY WAS MADE. THE PATELLA WAS EVERTED. THERE WAS TRICOMPARTMENT DJD. THERE WAS MINIMAL PATELLA DJD. AN INTRAMEDULLARY PABLO WAS PLACED IN THE FEMUR. A DISTAL FEMORAL CUT WAS MADE IN 5 DEGREES OF VALGUS REMOVING APPROXIMATELY 9 MM OF BONE FROM THE DISTAL FEMUR. THE FEMUR WAS SIZED TO 62.5. A 62.5 FEMORAL CUTTING BLOCK WAS PLACED IN 3 DEGREES OF EXTERNAL ROTATION AND IN ALIGNMENT WITH AMISH'S LINE AND THE TRANSEPICONDYLAR AXIS. ANTERIOR POSTERIOR AND CHAMFER CUTS WERE MADE. THE CUTS WERE EXCELLENT. NEXT AN INTRAMEDULLARY CUTTING GUIDE WAS PLACED IN THE TIBIA. A TRANS TIBIAL CUT WAS MADE ALONG THE LONG AXIS OF THE TIBIA. APPROXIMATELY 10 MM OF BONE WAS REMOVED FROM THE HIGH SIDE OF THE TIBIA. THE TIBIA WAS THEN PLANED TO A SMOOTH SURFACE. POSTERIOR FEMORAL OSTEOPHYTES WERE REMOVED FROM THE FEMORAL CONDYLES. A 71 TIBIAL TRIAL WAS PLACED IN ALIGNMENT WITH THE 1/3 MEDIAL ASPECT OF THE TIBIAL TUBERCLE. THEN A 62.5 FEMORAL TRIAL COMPONENT WAS PLACED. BOTH HAD EXCELLENT FITS. EVENTUALLY A 10 MM CR POLYETHYLENE TRIAL COMPONENT WAS PLACED. THE KNEE WAS TAKEN THROUGH A RANGE OF MOTION. THE KNEE CAME OUT TO FULL EXTENSION. THERE WAS NO ABNORMAL TILT TO THE PATELLA. THERE WAS GOOD A/P AND VARUS/VALGUS STABILITY. THERE WAS NO EXCESSIVE ROLL BACK WITH FLEXION. THE TRIAL COMPONENTS WERE REMOVED. THEN A 62.5 FEMORAL COMPONENT AND 71 TIBIAL COMPONENT WITH A 10 CR POLYETHYLENE COMPONENT WERE CEMENTED INTO PLACE. ONCE THE CEMENT WAS HARD THE KNEE WAS TAKEN THROUGH A ROM AGAIN AND FOUND TO BE STABLE WITH NO PATELLA TILT NO EXCESSIVE ROLL BACK WITH FLEXION AND GOOD STABILITY WITH COMPLETE AND FULL EXTENSION. THE KNEE WAS IRRIGATED WITH STERILE BETADINE AND WATER FOR ABOUT 3 MINUTES. THE BLEEDERS WERE CAUTERIZED. THE ARTHROTOMY WAS REPAIRED WITH NUMBER 1 VICRYL. THE SUB CUTANEOUS LAYER WITH 2-0 VICRYL AND 3-0 MONOCRYL AND THE SKIN WITH DERMABOND. THE WOUND WAS WASHED AND A STERILE DRESSING WAS APPLIED. PATIENT WAS EXTUBATED. Estimated Blood Loss -150.0 Pathology none sent Complications No immediate complications Condition stable Disposition PACU
--- NOTE | 2021-07-28 16:31 | ADMGEN ---
This patient, Desiree Ghosh, was admitted to [place] [address]. Patient/family oriented to hospital policies and general routines including ID bracelet, bed and alarms, visiting hours, pain management, procedures, bathroom and other care routines, personal items, smoking policy, room service/diet, and visiting hours. Information on how to activate the Rapid Response Team has been discussed. Patient/Family are encouraged to report perceived risks to care and to ask questions if they do not understand what they are told or what they should do.
[2021-07-28] MEDS: SENNA/DOCUSATE SODIUM TABLET 2 TAB PO (16:42)
[2021-07-28] MEDS: CELECOXIB 200 MG CAPSULE PO (16:43)
[2021-07-28] MEDS: oxyCODONE/ACETAMINOPHEN (*CRX) 5-325 MG TABLET 1 TABLET PO (16:43)
[2021-07-28 17:39] LABS: Glucose Point of Care 130 mg/dl (65-105)
[2021-07-28] MEDS: PANTOPRAZOLE 40 MG TABLET PO (21:09)
[2021-07-28] MEDS: oxyCODONE HCL (*CRX) 2.5 MG TAB IR 7.5 MG PO (21:23)
[2021-07-29] MEDS: ceFAZolin 2 GM/D5W 50 ML 2 GM/50 ML BAG IVPB ×2 (03:15→12:33)
[2021-07-29] MEDS: oxyCODONE HCL (*CRX) 2.5 MG TAB IR 7.5 MG PO ×2 (03:31→07:55)
[2021-07-29] MEDS: ACETAMINOPHEN 500 MG TABLET 1000 MG PO (03:43)
[2021-07-29 03:44] VITALS: BP 152/64; PULSE 70; RESP 20; TEMP 36.6; O2SAT 100
[2021-07-29 05:45] VITALS: BP 148/62; PULSE 72; RESP 20; TEMP 36.6; O2SAT 100
[2021-07-29 05:47] LABS: Basophils Percent Auto 0.2 % (0.2-1.2); Eosinophils Percent Auto 0.1 % (0-4.4); Hematocrit 35.2 % (37.0-47.0); Hemoglobin 11.9 g/dL (12.0-15.0); Immature Granulocyte Absolute 0.04 K/mm3 (0.00-0.031); Immature Granulocyte Percent A 0.4 % (0-0.5); Lymphocytes Absolute Auto 1.39 K/mm3 (0.9-3.2); Lymphocytes Percent Auto 12.3 % (18.3-44.2); Mean Corpuscular HGB Conc 33.8 g/dl (32-36); Mean Corpuscular Hemoglobin 31.8 pg (26-34); Mean Corpuscular Volume 94.1 fl (80-100); Mean Platelet Volume 9.7 fl (7.4-10.4); Monocytes Absolute Auto 1.1 K/mm3 (0.1-0.6); Monocytes Percent Auto 9.4 % (2.6-8.5); Neutrophils Absolute Auto 8.8 K/mm3 (1.3-6.7); Neutrophils Percent Auto 77.6 % (45.5-73.1); Platelet Count Result 208 k/mm3 (150-375); Red Blood Count 3.74 M/mm3 (4.2-5.4); Red Cell Distribution Width 11.9 % (11.5-14.5); White Blood Count 11.3 K/mm3 (4.5-10.0)
[2021-07-29] MEDS: LEVOTHYROXINE SODIUM 88 MCG TABLET PO (06:02)
[2021-07-29 06:03] LABS: Anion Gap 9 mmol/L (8-16); Blood Urea Nitrogen 13 mg/dL (7-17); Carbon Dioxide 28 mmol/L (22-30); Chloride 99 mmol/L (98-107); Estimated CRCL calculation 61 ml/min; Estimated Glomerular Filt Rate > 60; Glucose 124 mg/dL (65-110); Sodium 136 mmol/L (137-145)
[2021-07-29] MEDS: CELECOXIB 200 MG CAPSULE PO (07:54)
[2021-07-29 08:07] VITALS: BP 104/62; PULSE 68; RESP 20; TEMP 36.6; O2SAT 96
[2021-07-29] MEDS: ASPIRIN 325 MG ENTERIC TABLET 650 MG PO (09:50)
[2021-07-29] MEDS: ATORVASTATIN 40 MG TABLET 80 MG BY MOUTH (09:50)
[2021-07-29] MEDS: SENNA/DOCUSATE SODIUM TABLET 2 TAB PO (09:51)
[2021-07-29] MEDS: PANTOPRAZOLE 40 MG TABLET PO (09:51)
--- NOTE | 2021-07-29 12:43 | PM.PNORT ---
Progress Note: A&P Additional Plan POD 1 DOING WELL. OK TO DC HOME F/U IN 3 WEEKS Subjective Subjective Date/Time Seen: 07/29/21 12:43 POD 1 DOING WELL PASSED PT WITH NO PROBLEM. PAIN WELL CONTROLLED. Exam Extrem: Other: VSS AFEBRILE DRESSING DRY NV INTACT NEG HOMANS SIGN, CALF SOFT NON TENDER Objective Data Vital Signs Vital Signs: Vital Signs - 24 hr 07/28/21 14:12 07/28/21 14:25 07/28/21 14:40 Temperature 37.3 C Pulse Rate 96 81 86 Respiratory Rate 22 H 20 20 Blood Pressure 140/68 136/70 129/67 Pulse Oximetry 98 98 97 07/28/21 14:55 07/28/21 15:10 07/28/21 15:25 Temperature Pulse Rate 84 81 79 Respiratory Rate 20 18 12 Blood Pressure 126/69 127/70 132/72 Pulse Oximetry 97 98 95 07/28/21 15:40 07/28/21 15:42 07/28/21 15:55 Temperature 36.0 C L Pulse Rate 72 76 72 Respiratory Rate 12 16 18 Blood Pressure 119/65 143/78 H 138/73 Pulse Oximetry 97 100 100 07/28/21 16:25 07/28/21 17:25 07/28/21 20:00 Temperature 36.1 C L 36.6 C Pulse Rate 80 74 72 Respiratory Rate 20 16 18 Blood Pressure 151/82 H 136/97 H 160/79 H Pulse Oximetry 100 100 100 07/28/21 21:39 07/28/21 23:09 07/29/21 03:44 Temperature 36.7 C 36.7 C 36.6 C Pulse Rate 70 70 70 Respiratory Rate 16 18 20 Blood Pressure 150/74 H 150/72 H 152/64 H Pulse Oximetry 100 99 100 07/29/21 05:45 07/29/21 08:07 Temperature 36.6 C 36.6 C Pulse Rate 72 68 Respiratory Rate 20 20 Blood Pressure 148/62 H 104/62 Pulse Oximetry 100 96 Intake/Output Intake/Output: Intake & Output 07/26/21 07/27/21 07/28/21 07/29/21 23:59 23:59 23:59 23:59 Intake Total 940 490 Balance 940 490 Meds/Results Medications: Active Medications Generic Name Dose Route Start Last Admin Trade Name Freq PRN Reason Stop Dose Admin Acetaminophen 1,000 mg 07/28/21 15:42 07/29/21 03:43 Acetaminophen 500 Mg Tablet PO 1,000 mg Q6H PRN Administration Pain Rated 1-3 Albuterol 1 - 2 puff 07/28/21 15:42 Albuterol Sulfate (*Sp) Aerosol 1 Puff INHALATION Q4-6H PRN shortness of breath or wheezing Aspirin 650 mg 07/29/21 09:00 07/29/21 09:50 Aspirin 325 Mg Enteric Tablet PO 650 mg DAILY GRICEL Administration Atenolol 50 mg 07/29/21 09:00 Atenolol 50 Mg Tablet PO DAILY [facility] Atorvastatin Calcium 80 mg 07/29/21 09:00 07/29/21 09:50 Atorvastatin 40 Mg Tablet BY MOUTH 80 mg DAILY [facility] Administration Celecoxib 200 mg 07/28/21 17:00 07/29/21 07:54 Celecoxib 200 Mg Capsule PO 200 mg BIDWM GRICEL Administration Diazepam 5 mg 07/28/21 15:42 Diazepam (*Crx) 5 Mg Tablet PO Q8H PRN Spasms Levothyroxine Sodium 88 mcg 07/29/21 06:30 07/29/21 06:02 Levothyroxine Sodium 88 Mcg Tablet PO 88 mcg DAILY@0630 [facility] Administration Lisinopril 40 mg 07/29/21 09:00 Lisinopril 20 Mg Tablet PO DAILY [facility] Miscellaneous Information 0 each 07/28/21 00:01 Semaglutide Nonform Can Pt Bring From Home? XX 08/27/21 00:00 CLARIFY [facility] Naloxone HCl 0.1 mg 07/28/21 15:42 Naloxone Hcl 0.4 Mg/Ml Vial IV PUSH Q2M PRN Opiate Reversal Non-Formulary Medication 7 mg 07/29/21 09:00 Semaglutide PO 08/28/21 08:59 DAILY [facility] Ondansetron HCl 4 mg 07/28/21 15:42 Ondansetron Hcl Odt 4 Mg Tablet PO Q8H PRN nausea and vomiting Oxycodone HCl 7.5 mg 07/28/21 15:42 07/29/21 07:55 Oxycodone Hcl (*Crx) 2.5 Mg Tab Ir PO 7.5 mg Q4H PRN Administration Pain Rated 7-10 Oxycodone/Acetaminophen 1 tablet 07/28/21 15:42 07/28/21 16:43 Oxycodone/Acetaminophen (*Crx) 5-325 Mg Tablet PO 1 tablet Q4H PRN Administration Pain Rated 4-6 Pantoprazole Sodium 40 mg 07/28/21 21:00 07/29/21 09:51 Pantoprazole 40 Mg Tablet PO 40 mg Q12HR GRICEL Administration Polyethylene Glycol 17 gm 07/29/21 09:00 07/29/21 10:34 Polyethylene Glycol 3350 17 Gm Powd.Pack PO Not Given QAM GRICEL Senna/Docusate Sodium 2 tab
--- NOTE | 2021-07-29 12:45 | PM.DS ---
DS: Admitting Diagnosis Discharge Date 07/29/21 Admitting Diagnosis RIGHT KNEE DJD DS: Discharge Diagnosis Discharge Diagnosis (1) DJD (degenerative joint disease) of knee: Qualifiers: Osteoarthritis type: primary Laterality: right Qualified Code(s): M17.11 - Unilateral primary osteoarthritis, right knee Code(s): M17.10 - Unilateral primary osteoarthritis, unspecified knee Status: Acute DS: Summary Hospital Course Reason for hospitalization: R TKA Hospital Course: PATIENT WAS ADMITTED S/P TOTAL KNEE ARTHROPLASTY FOR POSTOPERATIVE MEDICAL MANAGEMENT, PAIN CONTROL AND MOBILIZATION WITH PHYSICAL AND OCCUPATIONAL THERAPY. THE PATIENT PROGRESSED WELL WITH PT/OT. LABS AND VITALS REMAINED STABLE AND PAIN WELL CONTROLLED. THE PATIENT HAS BEEN CLEARED TO BE DISCHARGED HOME. FOLLOW UP APPOINTMENT SCHEDULED. DISCHARGE INSTRUCTIONS DISCUSSED AT LENGTH WITH THE PATIENT. MEDICATIONS REVIEWED. Status at Discharge Functional status at discharge: uses cane/walker Time Spent with Patient Time attestation: Total time spent providing and/or coordinating discharge services: Time spent: Less than 30 minutes DS: Data Data Completed and Pending Labs on day of discharge: Labs from last 24 hours 07/29/21 07/29/21 07/28/21 05:32 05:32 17:36 WBC 11.3 H RBC 3.74 L Hgb 11.9 L Hct 35.2 L MCV 94.1 MCH 31.8 MCHC 33.8 RDW 11.9 Plt Count 208 MPV 9.7 Immature Gran % (Auto) 0.4 Neut % (Auto) 77.6 H Lymph % (Auto) 12.3 L [place] % (Auto) 9.4 H Eos % (Auto) 0.1 Baso % (Auto) 0.2 Lymph # (Auto) 1.39 [place] # (Auto) 1.1 H Eos # (Auto) 0.0 Baso # (Auto) 0.0 Abs Immat Gran (auto) 0.04 H Absolute Neuts (auto) 8.8 H Absolute Nucleated RBC 0.0 Nucleated RBC % 0.0 Sodium 136 L Potassium 4.0 Chloride 99 Carbon Dioxide 28 Anion Gap 9 BUN 13 D Creatinine 0.90 Estim Creat Clear Calc 61 Estimated GFR > 60 Glucose 124 H POC Capillary Glucose 130 H Calcium 9.0 07/28/21 14:25 WBC RBC Hgb Hct MCV MCH MCHC RDW Plt Count MPV Immature Gran % (Auto) Neut % (Auto) Lymph % (Auto) [place] % (Auto) Eos % (Auto) Baso % (Auto) Lymph # (Auto) [place] # (Auto) Eos # (Auto) Baso # (Auto) Abs Immat Gran (auto) Absolute Neuts (auto) Absolute Nucleated RBC Nucleated RBC % Sodium Potassium Chloride Carbon Dioxide Anion Gap BUN Creatinine Estim Creat Clear Calc Estimated GFR Glucose POC Capillary Glucose 145 H Calcium Discharge Plan Discharge Patient Disposition: Home Health Service Discharge Instructions: Care Coordination: Patient to have [facility] for PT/OT eval and treat, and long term. They can be reached at [phone] and will contact you to schedule their first visit. Patient Instructions: Antibiotic Form Stand Alone Forms: General Discharge Information, General Discharge Instructions Discharge Medications: No Action ezetimibe 10 mg tablet See Rx Instructions .ROUTE .COMPLEX Qty: 90 RF: 1 omeprazole 20 mg capsule,delayed release(DR/EC) 20 mg PO BID RF: 0 albuterol sulfate 90 mcg/actuation HFA aerosol inhaler 1 - 2 puff inhalation Q4-6H PRN (Reason: shortness of breath or wheezing) Qty: 8.5 RF: 2 ondansetron HCl [Zofran] 4 mg tablet 4 mg PO Q8H PRN (Reason: nausea and vomiting) Qty: 14 RF: 0 atorvastatin 80 mg tablet See Rx Instructions .ROUTE .COMPLEX Qty: 90 RF: 1 Rybelsus 7 mg tablet 7 mg PO DAILY 90 Days Qty: 90 RF: 1 ibuprofen 400 mg Tablet 400 mg PO Q6H PRN (Reason: Pain) RF: 0 atenolol 50 mg tablet 50 mg PO DAILY Qty: 90 RF: 1 levothyroxine [Euthyrox] 88 mcg tablet 88 mcg PO DAILY Qty: 90 RF: 0 lisinopril 40 mg tablet 40 mg PO DAILY Qty: 90 RF: 1 venlafaxine 150 mg capsule,extended release 24hr See Rx Instructions .ROUTE .COMPLEX Qty: 90 RF: 1 Other Ambulatory Orders: S
[2021-07-29] MEDS: oxyCODONE/ACETAMINOPHEN (*CRX) 5-325 MG TABLET 1 TABLET PO (14:09)
== END 2021-07-29 14:59 | disposition home health service (06) ==
LOC: ANHSURGERY 08:18 → ANHSUROVER 15:44
PROVIDERS: PCP Internal Medicine; Visit Provider Orthopaedic Surgery
PROC: (CPT 27447; principal; 2021-07-28 10:30)
DX: M17.11 Unilateral primary osteoarthritis, right knee (principal); G89.18 Other acute postprocedural pain; E78.5 Hyperlipidemia, unspecified; E11.9 Type 2 diabetes mellitus without complications; I10 Essential (primary) hypertension; J45.909 Unspecified asthma, uncomplicated; M79.7 Fibromyalgia; K21.9 Gastro-esophageal reflux disease without esophagitis; E03.9 Hypothyroidism, unspecified; G47.33 Obstructive sleep apnea (adult) (pediatric); E66.9 Obesity, unspecified; Z68.37 Body mass index [BMI] 37.0-37.9, adult; Z79.51 Long term (current) use of inhaled steroids; Z79.84 Long term (current) use of oral hypoglycemic drugs; Z87.891 Personal history of nicotine dependence
CPT/HCPCS: 27447; 64447; 36415; 73560; 80048; 82948; 85025; 86850; 86900; 86901; 97110; 97161; 97165; A9270; C1713; C1776; C9803; J0171; J0690; J1100; J1170; J1885; J2250; J2270; J2405; J2704; J2795; J3010; J7030; J7120; U0003; U0005

== ENCOUNTER 2022-03-08 10:55 | Outpatient (CLI) | payer OTHER, MEDICARE, SELFPAY ==
--- NOTE | ~2022-03-08 | XR_ITS ---
EXAM: XR abdomen/kub 1V DATE: 03/08/2022 11:16 HISTORY: HX OF KIDNEY STONES, right side . COMPARISON: 03/16/2021. CT abdomen pelvis 05/26/2017 FINDINGS: Cholecystectomy clips. Clear lung bases. Normal bowel gas pattern. Hepatomegaly. No definit e renal calcification. Multiple pelvic phleboliths. Degenerative changes in the thoracic and lumbar s pine. IMPRESSION: No radiographic evidence of urolithiasis. Reviewed, dictated and finalized at location K.
== END 2022-03-08 10:56 | disposition home or self-care (01) ==
PROVIDERS: PCP Internal Medicine; Visit Provider Urology
DX: Z87.442 Personal history of urinary calculi (principal)
CPT/HCPCS: 74018

== ENCOUNTER 2022-07-07 14:57 | Outpatient (CLI) | payer OTHER, MEDICARE, SELFPAY ==
--- NOTE | ~2022-07-07 | MM_ITS ---
EXAMINATION: MM screening bijal BI w eileen HISTORY: Screening mammogram TECHNIQUE: Craniocaudal and mediolateral oblique 3-D tomosynthesis images were obtained and synthetic 2-D images were generated. CAD analysis was submitted and interpreted. COMPARISON: 05/21/2020, 02/22/2019 bilateral screening mammogram examinations BREAST PARENCHYMAL COMPOSITION: There are scattered areas of fibroglandular density. FINDINGS: There is no evidence of suspicious mass, calcification, or architectural distortion to sugg est malignancy in either breast. There has been no suspicious interval change. IMPRESSION: 1. No mammographic evidence of malignancy. 2. Recommend routine screening mammography in one year. BI-RADS Category 1: Negative Reviewed, dictated and finalized at location A. DIRECTOR/FINANCE
== END 2022-07-07 14:58 | disposition home or self-care (01) ==
PROVIDERS: Visit Provider Obstetrics & Gynecology
DX: Z12.31 Encounter for screening mammogram for malignant neoplasm of breast (principal)
CPT/HCPCS: 77063; 77067

== ENCOUNTER 2022-07-21 04:40 | Emergency (ER) | payer OTHER, MEDICARE, SELFPAY ==
--- NOTE | ~2022-07-21 | XR_ITS ---
EXAMINATION: XR chest 2V DATE: 07/21/2022 05:52 INDICATION: Palpitations. Shortness of breath. TECHNIQUE: Frontal and lateral views of the chest were obtained. COMPARISON: Chest 2 views 08/13/2019 FINDINGS: The chest demonstrates clear lungs without pneumonia, pleural effusion, or pneumothorax. Th e heart size is normal. Surgical clips in the right upper quadrant are likely from cholecystectomy. T here are changes of anterior and posterior fusion procedures in cervical spine. IMPRESSION: 1. No acute cardiopulmonary disease. Reviewed, dictated and finalized at location A. OPSYCHIATRIST
[2022-07-21 04:42] VITALS: BP 156/94; PULSE 66; RESP 18; TEMP 35.9; O2SAT 100
--- NOTE | 2022-07-21 04:46 | ECG_ITS ---
Measurements Intervals [place] Rate: 66 P: 54 [place]: 172 QRS: 48 QRSD: 83 T: 80 QT: 387 QTc: 407 Interpretive Statements SINUS RHYTHM ATRIAL PREMATURE COMPLEX LEFT VENTRICULAR HYPERTROPHY WITH ST-T CHANGE BORDERLINE ECG COMPARED TO ECG 06/11/2021 15:28:08 SINUS RHYTHM NOW PRESENT Electronically Signed On 07-21-2022 16:14:40 CALL CENTER PROFESSIONAL by Rigo Riddle D.O.
[2022-07-21 05:07] VITALS: BP 157/70; PULSE 66; PULSE 69; RESP 19; O2SAT 97
[2022-07-21 05:25] LABS: Basophils Absolute Auto 0.1 K/mm3 (0.0-0.1); Basophils Percent Auto 0.9 % (0.2-1.2); Eosinophils Absolute Auto 0.1 K/mm3 (0-0.3); Eosinophils Percent Auto 1.3 % (0-4.4); Hematocrit 40.3 % (37.0-47.0); Hemoglobin 13.8 g/dL (12.0-15.0); Immature Granulocyte Absolute 0.02 K/mm3 (0.00-0.031); Immature Granulocyte Percent A 0.3 % (0-0.5); Lymphocytes Absolute Auto 2.31 K/mm3 (0.9-3.2); Lymphocytes Percent Auto 30.7 % (18.3-44.2); Mean Corpuscular HGB Conc 34.2 g/dl (32-36); Mean Corpuscular Hemoglobin 32.2 pg (26-34); Mean Corpuscular Volume 93.9 fl (80-100); Mean Platelet Volume 9.3 fl (7.4-10.4); Monocytes Absolute Auto 0.5 K/mm3 (0.1-0.6); Monocytes Percent Auto 7.2 % (2.6-8.5); Neutrophils Absolute Auto 4.5 K/mm3 (1.3-6.7); Neutrophils Percent Auto 59.6 % (45.5-73.1); Platelet Count Result 207 k/mm3 (150-375); Red Blood Count 4.29 M/mm3 (4.2-5.4); Red Cell Distribution Width 12.6 % (11.5-14.5); White Blood Count 7.5 K/mm3 (4.5-10.0)
[2022-07-21 05:36] LABS: Alanine Aminotransferase 22 U/L (6-35); Albumin Level 4.3 g/dL (3.5-5.1); Alkaline Phosphatase 88 U/L (38-126); Anion Gap 7 mmol/L (8-16); Aspartate Amino Transferase 26 U/L (14-36); Bilirubin,Total 0.5 mg/dL (0.2-1.3); Blood Urea Nitrogen 17 mg/dL (7-17); Calcium 9.2 mg/dL (8.4-10.2); Carbon Dioxide 30 mmol/L (22-30); Chloride 104 mmol/L (98-107); Estimated CRCL calculation 70 ml/min; Estimated Glomerular Filt Rate > 60; Glucose 104 mg/dL (65-110); Lipase 222 U/L (23-300); Potassium 3.2 mmol/L (3.4-5.0); Sodium 141 mmol/L (137-145)
[2022-07-21 05:42] LABS: Prothrombin Time 12.4 Seconds (11.1-14.7)
[2022-07-21 05:43] LABS: Partial Thromboplastin Time 31.4 SECONDS (22.3-36.8)
--- NOTE | 2022-07-21 05:44 | ED.ARRPALP ---
HPI - Arrhythmia/Palpitations General Chief Complaint: Arrhythmia/Palpitations Stated Complaint: palpitations Time Seen by Provider: 07/21/22 05:02 History of Present Illness HPI narrative: Patient has history of palpitations presents here stating that she is still having palpitations. Unsure of any recent triggers, she has been taking her atenolol. No chest pain but occasionally has some shortness of breath and rib pain that she associates with her costochondritis. Related Data Home Medications Medication Instructions Recorded Confirmed omeprazole 20 mg capsule,delayed 20 mg PO BID 01/07/22 07/18/22 release Allergies Allergy/AdvReac Type Severity Reaction Status Date / Time pentazocine [From Talwin] Allergy Severe Nausea Verified 07/21/22 05:09 ciprofloxacin Allergy Unknown BLISTERS Verified 07/21/22 05:09 metronidazole [From Flagyl] Allergy Unknown blisters Verified 07/21/22 05:09 propoxyphene Allergy Unknown nausea Verified 07/21/22 05:09 [From Darvocet-N] codeine AdvReac Severe N/V Verified 07/21/22 05:09 Review of Systems Review of Systems: CONST: No fever. HEENT: No sore throat C/V: Palpitations RESP: Mild shortness of breath GI: No nausea : No dysuria. M/S: No joint pain. SKIN: No rash. NEURO: [No headache or focal numbness or weakness] PSYCH: [No depression] [facility] Past Medical History Medical History Arthritis Asthma Claustrophobia Close exposure to COVID-19 virus Constipation COVID-19 Depression Diabetes Diarrhea Diverticulitis (~04/2018) removed 1 foot of bowel Dizziness Essential hypertension Fibromyalgia GERD (gastroesophageal reflux disease) High cholesterol History of tobacco abuse Hyperlipemia, mixed Hypothyroidism Kidney stones Light headedness Obesity (BMI 30-39.9) ОЛЕГ (obstructive sleep apnea) ОЛЕГ on CPAP Recurrent infections Screening mammogram, encounter for Shortness of Breath Sleep apnea Vertigo Wears glasses Surgical History Surgical History History of breast biopsy (~1979) left breast--benign History of elbow surgery (~06/10/15) left elbow--ulna History of gastrointestinal surgery (~10/01/18) one foot of bowel removed History of nasal septoplasty (~1979) History of neck surgery 1997, 2009, 2010 History of right knee surgery x2 History of right salpingo-oophorectomy (~1983) History of shoulder surgery (~2008) History of surgery on wrist right wrist--ganglion cyst fractured wrist History of total abdominal hysterectomy (~1978) ANN w/LSO S/P total knee arthroplasty Status post right knee replacement Family History Family History Sibling Family history of primary malignant neoplasm of liver Family history of lung cancer Carcinoma of colon Diabetes mellitus 6 sisters brother Father Alcoholism Depression Heart disease Hypertension Mother Depression Heart disease Hypertension Diabetes mellitus Osteoporosis Other Arthritis Asthma Breast cancer Cerebrovascular accident Family history of allergic disorder Family history of cardiovascular disease Family history of chronic obstructive pulmonary disease Family history of kidney disease Family history of malignant neoplasm Family history of osteoarthritis Family history of osteoporosis High cholesterol Lung disease Neuropathy Social History Social History Smoking packs per day: 1 Smoking cigarettes per day: 20.0 Years smoked: 30 Smoking pack-years: 30.00 Smoking status: Former smoker Tobacco type: cigarettes Second hand tobacco smoke exposure: No Smoking end date: 07/10/04 Alcohol intake: current Drinks per week: 4 Substance use: never Substance use type: does not use Additional living arrangements comments: Ge
[2022-07-21 05:47] LABS: Troponin I < 0.012 ng/mL (0.000-0.034)
[2022-07-21] MEDS: POTASSIUM CHLORIDE 20 MEQ TABLET 40 MEQ PO (06:06)
[2022-07-21 06:07] VITALS: BP 174/66; PULSE 65; RESP 16; TEMP 36.2; O2SAT 97
== END 2022-07-21 06:14 | disposition home or self-care (01) ==
PROVIDERS: Emergency Provider Emergency Medicine; PCP Family Medicine Sports Medicine
DX: R00.2 Palpitations (principal); R06.02 Shortness of breath; J45.909 Unspecified asthma, uncomplicated; E11.9 Type 2 diabetes mellitus without complications; I10 Essential (primary) hypertension; K21.9 Gastro-esophageal reflux disease without esophagitis; E78.2 Mixed hyperlipidemia; E03.9 Hypothyroidism, unspecified; G47.33 Obstructive sleep apnea (adult) (pediatric); M19.90 Unspecified osteoarthritis, unspecified site; E66.9 Obesity, unspecified; Z68.39 Body mass index [BMI] 39.0-39.9, adult; Z90.721 Acquired absence of ovaries, unilateral; Z90.79 Acquired absence of other genital organ(s); Z90.710 Acquired absence of both cervix and uterus; Z96.651 Presence of right artificial knee joint; Z86.16 Personal history of COVID-19; Z87.442 Personal history of urinary calculi; Z87.891 Personal history of nicotine dependence; Z79.85 Long-term (current) use of injectable non-insulin antidiabetic drugs; I49.1 Atrial premature depolarization; I51.7 Cardiomegaly
CPT/HCPCS: 36415; 71046; 80053; 83690; 84484; 85025; 85610; 85730; 93005; 99284; A9270

== ENCOUNTER 2022-10-22 17:21 | Emergency (ER) | payer OTHER, MEDICARE, SELFPAY ==
--- NOTE | ~2022-10-22 | CT_ITS ---
EXAMINATION: CT abdomen pelvis w con DATE: 10/22/2022 18:40 INDICATION: Epigastric and left-sided abdominal pain. Nausea and vomiting. Dysuria. TECHNIQUE: Computed tomography (CT) of the abdomen and pelvis was performed with 100 mL Omnipaque-350 intravenous contrast. Automated exposure control and iterative reconstruction technique were employe d. The dose-length product was 1435.48 mGy-cm. COMPARISON: 05/26/2017 FINDINGS: Mild bronchiectasis and minimal dependent atelectasis in bilateral lower lobes heart size is normal. No pericardial or pleural effusion. Cholecystectomy clips at the gallbladder fossa. Liver, pancreas, spleen, bilateral adrenal glands and left kidney 5 mm low-attenuation cyst at the lower pole of the r ight kidney. No significant change in a partially rim calcified 1.4 cm splenic artery aneurysm situat ed between the splenic hilum and the tail of the pancreas. Fluid throughout the colon consistent with diarrhea. There are few diverticula along the sigmoid colon without adjacent inflammatory stranding to suggest diverticulitis. No abnormal bowel wall thickening or obstruction. Normal appendix. Very sm all amount of ascites in the pelvis. Bladder is normal. The uterus is not identified and has likely b een surgically resected. Multiple phleboliths in the pelvis. There is calcified atherosclerosis of th e aorta and many of the other arteries. New small infrarenal saccular aneurysm at the site of a prior penetrating atherosclerotic ulcer. The aneurysm extends approximately 8 mm anterior to the small int imal flap and measures approximately 2.0 x 1.6 cm in [id number] and craniocaudal dimensions respec tively. No pathologically enlarged abdominal or pelvic lymphadenopathy. Moderate lumbar spondylosis. IMPRESSION: 1. Fluid throughout the colon consistent with nonspecific diarrhea with. Small amount of likely react brea ascites in the pelvis. Correlate clinically for gastroenteritis. 2. Unchanged 1.4 cm partially rim calcified splenic artery aneurysm. 3. Interval development of a small infrarenal aortic saccular aneurysm at the site of a prior penetra ting atherosclerotic ulcer. Reviewed, dictated and finalized at location A. IMPRESSION: 1. Fluid throughout the colon consistent with nonspecific diarrhea with. Small amount of likely reactive ascites in the pelvis. Correlate clinically for gastr oenteritis. 2. Unchanged 1.4 cm partially rim calcified splenic artery aneurysm. 3. Interval development of a small infrarenal aortic saccular aneurysm at the s ite of a prior penetrating atherosclerotic ulcer.
[2022-10-22 17:37] VITALS: BP 130/84; PULSE 67; RESP 18; TEMP 36.8; O2SAT 97
--- NOTE | 2022-10-22 17:43 | ED.NAVMDI ---
HPI - Nausea/Vomiting/Diarrhea General Chief complaint: Nausea/Vomiting/Diarrhea Stated complaint: Diarrhea Time Seen by Provider: 10/22/22 17:25 Source: patient Mode of arrival: ambulatory Limitations: no limitations History of Present Illness HPI Narrative: Patient is a 67-year-old female who presents the ED with report of diarrhea and abdominal pain. Patient reports having epigastric and left-sided abdominal pain for the last 3 to 4 days. She reports having profuse diarrhea, up to 10 episodes per day, that appears yellow in nature. She also complains of increased belching, nausea, and vomiting, which she reports she made herself vomit. Patient has a history of diverticulitis status post sigmoidectomy performed by Dr. Reina 6-7 years ago. She also reports history of frequent UTIs and reports having dysuria and urinary frequency over the last couple of days. Denies any fevers, hematuria, rectal bleeding, melena. Related Data Home Medications Medication Instructions Recorded Confirmed omeprazole 20 mg capsule,delayed 20 mg PO BID 01/07/22 07/18/22 release Allergies Allergy/AdvReac Type Severity Reaction Status Date / Time pentazocine [From Talwin] Allergy Severe Nausea Verified 10/22/22 17:41 ciprofloxacin Allergy Unknown BLISTERS Verified 10/22/22 17:41 metronidazole [From Flagyl] Allergy Unknown blisters Verified 10/22/22 17:41 propoxyphene Allergy Unknown nausea Verified 10/22/22 17:41 [From Darvocet-N] codeine AdvReac Severe N/V Verified 10/22/22 17:41 Review of Systems Review of Systems: CONSTITUTIONAL: Denies fever, chills, or sweats. CARDIOVASCULAR: Denies chest pain. RESPIRATORY: Denies dyspnea. GASTROINTESTINAL: See HPI. GENITOURINARY: See HPI. SKIN: Denies rash or itching. MUSCULOSKELETAL: Denies back pain, joint pain, or myalgia. All systems reviewed & are unremarkable except as noted in HPI and below PMFSH Past Medical History Medical History Arthritis Asthma Claustrophobia Close exposure to COVID-19 virus Constipation COVID-19 Depression Diabetes Diarrhea Diverticulitis (~04/2018) removed 1 foot of bowel Dizziness Essential hypertension Fibromyalgia GERD (gastroesophageal reflux disease) High cholesterol History of tobacco abuse Hyperlipemia, mixed Hypothyroidism Kidney stones Light headedness Obesity (BMI 30-39.9) ОЛЕГ (obstructive sleep apnea) ОЛЕГ on CPAP Recurrent infections Screening mammogram, encounter for Shortness of Breath Sleep apnea Vertigo Wears glasses Surgical History Surgical History History of breast biopsy (~1979) left breast--benign History of elbow surgery (~06/10/15) left elbow--ulna History of gastrointestinal surgery (~04/09/18) one foot of bowel removed History of nasal septoplasty (~1979) History of neck surgery 1997, 2009, 2010 History of right knee surgery x2 History of right salpingo-oophorectomy (~1983) History of shoulder surgery (~2008) History of surgery on wrist right wrist--ganglion cyst fractured wrist History of total abdominal hysterectomy (~1978) ANN w/LSO S/P total knee arthroplasty Status post right knee replacement Family History Family History Sibling Family history of primary malignant neoplasm of liver Family history of lung cancer Carcinoma of colon Diabetes mellitus 6 sisters brother Father Alcoholism Depression Heart disease Hypertension Mother Depression Heart disease Hypertension Diabetes mellitus Osteoporosis Other Arthritis Asthma Breast cancer Cerebrovascular accident Family history of allergic disorder Family history of cardiovascular disease Family history of chronic obstructive pulmonary disease Family history of kidney disease Family history of malignant neoplasm Family history o
[2022-10-22] MEDS: SODIUM CHLORIDE 0.9% IV 1,000 ML 999 ML IV CONT ×2 (17:47→19:51)
[2022-10-22 17:51] LABS: Basophils Absolute Auto 0.1 K/mm3 (0.0-0.1); Basophils Percent Auto 0.6 % (0.2-1.2); Eosinophils Absolute Auto 0.2 K/mm3 (0-0.3); Eosinophils Percent Auto 1.6 % (0-4.4); Hematocrit 43.1 % (37.0-47.0); Hemoglobin 14.6 g/dL (12.0-15.0); Immature Granulocyte Absolute 0.04 K/mm3 (0.00-0.031); Immature Granulocyte Percent A 0.4 % (0-0.5); Lymphocytes Absolute Auto 3.27 K/mm3 (0.9-3.2); Lymphocytes Percent Auto 31.8 % (18.3-44.2); Mean Corpuscular HGB Conc 33.9 g/dl (32-36); Mean Corpuscular Hemoglobin 31.7 pg (26-34); Mean Corpuscular Volume 93.5 fl (80-100); Mean Platelet Volume 9.4 fl (7.4-10.4); Monocytes Absolute Auto 0.7 K/mm3 (0.1-0.6); Monocytes Percent Auto 6.8 % (2.6-8.5); Neutrophils Absolute Auto 6.1 K/mm3 (1.3-6.7); Neutrophils Percent Auto 58.8 % (45.5-73.1); Platelet Count Result 236 k/mm3 (150-375); Red Blood Count 4.61 M/mm3 (4.2-5.4); Red Cell Distribution Width 12.7 % (11.5-14.5); White Blood Count 10.3 K/mm3 (4.5-10.0)
[2022-10-22 18:10] LABS: Alanine Aminotransferase 21 U/L (6-35); Albumin Level 4.3 g/dL (3.5-5.1); Alkaline Phosphatase 83 U/L (38-126); Anion Gap 6 mmol/L (8-16); Aspartate Amino Transferase 24 U/L (14-36); Bilirubin,Total 0.8 mg/dL (0.2-1.3); Blood Urea Nitrogen 12 mg/dL (7-17); Calcium 8.9 mg/dL (8.4-10.2); Carbon Dioxide 28 mmol/L (22-30); Chloride 102 mmol/L (98-107); Estimated CRCL calculation 62 ml/min; Estimated Glomerular Filt Rate > 60; Glucose 102 mg/dL (65-110); Lipase 181 U/L (23-300); Potassium 3.9 mmol/L (3.4-5.0); Sodium 136 mmol/L (137-145)
[2022-10-22 18:18] LABS: Appearance Urine Cloudy (Clear); Bacteria Urine 4+ /hpf; Bilirubin Urine Negative (Negative); Color Urine Yellow (Yellow); Glucose Urine UA Negative (Negative); Hyaline Casts Urine Present /lpf; Ketones Urine Negative (Negative); Leukocyte Esterase Ur 3+ LEU/UL (Negative); Nitrate Urine Positive (Negative); Non Pathogenic Casts 0-2; Protein Urine Negative (Negative); RBC Urine 0-2 /hpf (0-2); Specific Grav Ur 1.014 (1.001-1.035); Squamous Epithelial Cell Urine Few /hpf (Few); WBC Urine >100 /hpf; pH Urine 5.5 (5.0-9.0)
[2022-10-22 18:19] LABS: Add Urine Microscopic? YES
[2022-10-22 19:45] VITALS: BP 144/68; PULSE 61; RESP 16; O2SAT 98
[2022-10-22] MEDS: PANTOPRAZOLE SODIUM IV 40 MG VIAL IV PUSH (19:51)
[2022-10-22] MEDS: DICYCLOMINE HCL 10 MG CAPSULE 20 MG PO (19:51)
== END 2022-10-22 21:29 | disposition home or self-care (01) ==
PROVIDERS: Emergency Provider Physician Assistant; PCP Family Medicine Sports Medicine
DX: K52.9 Noninfective gastroenteritis and colitis, unspecified (principal); N39.0 Urinary tract infection, site not specified; I71.43 Infrarenal abdominal aortic aneurysm, without rupture; J45.909 Unspecified asthma, uncomplicated; E11.9 Type 2 diabetes mellitus without complications; I10 Essential (primary) hypertension; E78.00 Pure hypercholesterolemia, unspecified; E03.9 Hypothyroidism, unspecified; K21.9 Gastro-esophageal reflux disease without esophagitis; M19.90 Unspecified osteoarthritis, unspecified site; M79.7 Fibromyalgia; G47.33 Obstructive sleep apnea (adult) (pediatric); F32.A Depression, unspecified; E66.9 Obesity, unspecified; Z68.41 Body mass index [BMI] 40.0-44.9, adult; Z90.721 Acquired absence of ovaries, unilateral; Z90.79 Acquired absence of other genital organ(s); Z90.710 Acquired absence of both cervix and uterus; Z96.651 Presence of right artificial knee joint; Z86.16 Personal history of COVID-19; Z87.891 Personal history of nicotine dependence; Z87.442 Personal history of urinary calculi; Z79.85 Long-term (current) use of injectable non-insulin antidiabetic drugs
CPT/HCPCS: 36415; 74177; 80053; 81001; 83690; 85025; 87077; 87086; 87186; 96361; 96365; 96367; 96375; 99284; A9270; C9113; J0131; J0696; J7030; Q9967

== ENCOUNTER → 2023-04-05 13:11 | Outpatient (CLI) | payer OTHER, MEDICARE, SELFPAY ==
--- NOTE | ~2023-04-05 | XR_ITS ---
EXAMINATION: XR abdomen/kub 1V INDICATION: Calculus of the right kidney TECHNIQUE: Supine views of the abdomen were obtained on 2 radiographs. COMPARISON: 03/08/2022 FINDINGS: No definite urolithiasis is identified. The bowel gas pattern is normal. There are phleboli ths of the pelvis. IMPRESSION: 1. No urolithiasis identified. Reviewed, dictated and finalized at location F.
--- NOTE | ~2023-04-05 | US_ITS ---
US retroperitoneal comp 04/05/2023 13:38 Procedure: Realtime transabdominal ultrasound of the kidneys and bladder. Indication: Right renal stone Comparison: CT dated 10/22/2022 Findings: Renal echotexture is normal bilaterally without hydronephrosis, contour deforming mass or r enal calculus. The right kidney measures 12 cm and left kidney measures 12 cm. Bladder within normal limits. Impression: 1: Unremarkable renal ultrasound. No stones, masses or hydronephrosis. Reviewed, dictated and finalized at location B. Impression: 1: Unremarkable renal ultrasound. No stones, masses or hydronephrosis.
== END ==
PROVIDERS: Visit Provider Urology
DX: N20.0 Calculus of kidney (principal)
CPT/HCPCS: 74018; 76770

== ENCOUNTER 2024-08-06 11:31 | Outpatient (CLI) | payer MEDICARE, OTHER, SELFPAY ==
[2024-08-06 12:17] LABS: Basophils Absolute Auto 0.1 K/mm3 (0.0-0.1); Basophils Percent Auto 1.1 % (0.2-1.2); Eosinophils Absolute Auto 0.2 K/mm3 (0-0.3); Hematocrit 40.7 % (37.0-47.0); Hemoglobin 13.6 g/dL (12.0-15.0); Immature Granulocyte Absolute 0.04 K/mm3 (0.00-0.031); Immature Granulocyte Percent A 0.6 % (0-0.5); Lymphocytes Absolute Auto 2.03 K/mm3 (0.9-3.2); Lymphocytes Percent Auto 28.8 % (18.3-44.2); Mean Corpuscular HGB Conc 33.4 g/dl (32-36); Mean Corpuscular Hemoglobin 31.6 pg (26-34); Mean Corpuscular Volume 94.4 fl (80-100); Mean Platelet Volume 9.9 fl (7.4-10.4); Monocytes Absolute Auto 0.6 K/mm3 (0.1-0.6); Monocytes Percent Auto 8.2 % (2.6-8.5); Neutrophils Absolute Auto 4.1 K/mm3 (1.3-6.7); Neutrophils Percent Auto 58.3 % (45.5-73.1); Platelet Count Result 186 k/mm3 (150-375); Red Blood Count 4.31 M/mm3 (4.2-5.4); Red Cell Distribution Width 12.4 % (11.5-14.5)
[2024-08-06 12:27] LABS: Add Urine Microscopic? YES; Appearance Urine Clear (Clear); Bacteria Urine 2+ /hpf; Bilirubin Urine Negative (Negative); Blood Urine Negative (Negative); Color Urine Yellow (Yellow); Glucose Urine UA Negative (Negative); Ketones Urine Negative (Negative); Leukocyte Esterase Ur 1+ LEU/UL (Negative); Nitrate Urine Negative (Negative); Non Pathogenic Casts 0-2; Protein Urine Negative (Negative); RBC Urine 0-2 /hpf (0-2); Specific Grav Ur 1.016 (1.001-1.035); Squamous Epithelial Cell Urine Few /hpf (Few); WBC Urine 21-50 /hpf (0-3)
[2024-08-06 12:41] LABS: LDL Cholesterol Direct 149 mg/dL
--- OUTSIDE RECORDS SUMMARY | 2024-08-06 12:48 | XMS_ITS | Clinical Summary ---
Author Organization [facility] Address [address] [place] [address] Care Team Providers Care Standpipe Tender Name Role Phone Donal Serrano MD Primary Care Provider [phone] Source Comments [facility] [employer],non-[facility] Affiliates and Associated Physician Practices is amultiple site organization consisting of ambulatory clinics and hospital sitesin [place], [place], [place] and [place]. This disclosure is being madepursuant to the Care Everywhere program and may not contain all information available regarding this patient. Last updated 18.[facility] [employer] Social History Tobacco Use Types Packs/Day Years Used Date Smoking Tobacco: Never Assessed Sex and Gender Information Value Date Recorded Sex Assigned at Not on file Gender Identity Not on file Sexual Orientation Not on file Last Filed Vital Signs Vital Sign Reading Time Taken Comments Blood Pressure - - Pulse - - Temperature - - Respiratory Rate - - Oxygen Saturation - - Inhaled Oxygen Concentration - - Weight 112.7 kg (248 lb 6.4 oz) 018 10:20 AM CDT Height 161.3 cm (5' 3.5 ) 12/20/2017 10 :20 AM CDT Body Mass Index 43.31 12/20/2017 10:20 AM CDT Plan of Treatment Health Maintenance Due Date Last Done Comments BONE DENSITY TESTING 1955 COLOGUARD (AGES 45-75) - COL ON CA SCREENING 1956 CT COLONOGRAPHY - COLON CA SCREENING 1955 FIT - COLON CA SCREENING 1955 FLEX SIG - COLON CA SCREENING 1955 LIPID TESTING 1955 MAMMOGRAM 1955 MEDICARE AWV ? 12 MONTHS 1955 HEPATITIS C SCREENING 10/05/1974 DTAP/TDAP/TD VACCINES (1 - Tdap) 10/10/1975 PNEUMOCOCCAL VACCINE 50+ (1 of 1 - PCV) 2006 ZOSTER VACCINE (1 of 2) 2006 Respiratory Syncytial Virus (RSV) Vaccine Pt: or over 60 yrs (1 - Risk 60-74 years 1-dose series) 2016 COLON MONITORING 02/27/2023 02/27/2013 COLONOSCOPY - COLON CA SCREENING 02/27/2023 02/28/20 13 Colorectal Cancer Screening 02/27/2023 COVID-19 VACCINE ( - 2023-2 5 season) 2024 INFLUENZA VACCINE (#1) 2024 DEPRESSION SCREENING 07/10/2024 HEPATITIS B VACCINE Aged Out No longe r eligible based on patient's age to complete this topic HIB VACCINE Aged Out No longer eligi ble based on patient's age to complete this topic HPV VACCINE Aged Out No longer eligi ble based on patient's age to complete this topic MENINGOCOCCAL (Group B) VACCINE Aged Out No longer eligible based on patient's age to complete this topic MENINGOCOCCAL VACCINE Aged Out No chi fifi eligible based on patient's age to complete this topic Procedures Procedure Name Priority Date/Time Associated Diagnosis Comments COLONOSCOPY Routine 02/27/2013 from Last 3 Months or Most Recently Relevant to Health Maintenance Results * COLONOSCOPY (02/27/2013) Cabrera Andre MD GENERIC SURGICAL HIS TORY from Last 3 Months or Most Recently Relevant to Health Maintenance Care Teams Standpipe Tender Relationship Specialty Start Date End Date Donal Serrano MD [address] [place] [id number] PCP - General Internal Medicine 11/15/17
--- OUTSIDE RECORDS SUMMARY | 2024-08-06 12:48 | XMS_ITS ---
Author Organization [employer], [facility] Address [address] [place] [address] [address] [place] [address] Care Team Providers Care Assistant Credit Manager Name Role Phone Israel Mitchell MD Primary Care Provider Bill Cline Unavailable [phone] Encounters Encounter Location Date Provider Diagnosis [facility], [address] Juarez [address] [place] [phone] 07/13/2023 Bill Sim Plan Of Treatment No Information Progress Notes * Desiree GHOSH KDOB: (68 yo F)Acc No.[id number]:07/13/2023 Patient:?Desiree GHOSH :1955???Age:67 Y???Sex:Female Address:[address] [place] [address] Subjective: * Chief Complaints: * ??? * Medical History:? * Surgical History:? * Hospitalization/Major Diagno stic Procedure:? * Medications:? Objective: * Vitals:? * Physical Examination:? Assessment: Plan: * Treatment: * Procedure Codes:? * Preventive Medicine:? ??Screenings:?Colonoscopy?Was last colonoscopy performed three or more years ago??Yes * true * Date:? Generated for Estelitai julia/Cecile/eTransmitting on:?08/06/2024 12:47 PM HVAC DESIGN ENGINEER
--- OUTSIDE RECORDS SUMMARY | 2024-08-06 12:48 | XMS_ITS | Clinical Summary ---
Author Organization [facility] Address [address] [place] [address]. [place], [place] [id number] [place] [id number] Care Team Providers Care Intelligence Applications Name Role Phone Trey Blount MD Primary Care Provider [phone] Allergies Active Allergy Reactions Criticality Noted Date Comments Ciprofloxacin Unknown 02/22/2016 Blisters Codeine Nausea and Vomiting Low 02/22/2016 Metronidazole Unknown 02/22/2016 Blisters Pentazocine Nausea and Vomiting Low 02/22/2016 Propoxyphene Nausea and Vomiting Low 02/22/2016 Medications atenolol (TENORMIN) 50 MG tablet Take 1 tablet (50 mg total) by mouth daily. Active dicyclomine (BENTYL) 20 MG tablet Take 1 tablet (20 mg total) by mouth 2 (two) times a day. 3 Active ezetimibe (ZETIA) 10 MG tablet Take 1 tablet (10 mg total) by mouth daily. 3 Active levothyroxine (SYNTHROID) 75 MCG tablet Take 1 tablet (75 mcg total) by mouth every morning. 3 Active lisinopril (PRINIVIL) 40 MG tablet Take 1 tablet (40 mg total) by mouth daily. 3 Active omeprazole (PRILOSEC) 40 MG capsule Take 1 capsule (40 mg total) by mouth daily. Active potassium chloride CR (K-TAB) 10 MEQ Tab CR tablet Take 1 tablet (10 mEq total) by mouth daily with breakfast. 3 Active promethazine-de xtromethorphan (PROMETHAZINE-D M) 6.25-15 mg/5mL syrup Take by mouth every 6 (six) hours as needed. 3 Active RYBELSUS 7 MG Tab Take 1 tablet by mouth daily. 3 Active venlafaxine XR (EFFEXOR-XR) 150 MG 24 hr capsule Take 1 capsule (150 mg total) by mouth daily. Active albuterol sulfate HFA 108 (90 Base) MCG/ACT inhaler INHALE 1 TO 2 PUFFS BY MOUTH EVERY 4 TO 6 HOURS NEEDED FOR SHORTNESS OF BREATH FOR WHEEZING 2 Active cetirizine (ZYRTEC) 10 MG tablet Take 1 tablet (10 mg total) by mouth daily. Active Active Problems Problem Noted Date Diagnosed Date AAA (abdominal aortic aneurysm) without rupture 12/28/2022 Overview (12/28/2022): Added automatically from request for surgery [id number] Infrarenal abdominal aortic aneurysm (AAA) witho ut rupture 12/19/2022 Splenic artery aneurysm 12/19/2022 Morbid obesity with body mas s index of 40.0-44.9 in adult ([facility]) 02/22/2016 Family History Medical History Relation Comments Lung Cancer Brother Depression Father Heart Disease Father Hypertension Father Depression Mother Heart Disease Mother Hypertension Mother Stroke Mother Breast Cancer Sister Hodgkin's lymphoma Sister Seizures Sister Relation Status Comments Brother Father Mother Sister Social History Tobacco Use Types Packs/Day Years Used Date Smoking Tobacco: Former Cigarettes Passive Smoke Exposure: Past Smokeless Tobacco: Never Alcohol Use Standard Drinks/Week Comments Yes 0 (1 standard drink = 0.6 oz pur e alcohol) SOCIALLY Comments Unknown Sex and Gender Information Value Date Recorded Sex Assigned at Not on file Legal Sex Female 3:04 PM CDT Gender Identity Not on file Sexual Orientation Not on file Last Filed Vital Signs Vital Sign Reading Time Taken Comments Blood Pressure 180/110 12/15/2022 5:25 PM CDT Pulse 77 12/15/2022 5:25 PM CDT Temperature - - Respiratory Rate - - Oxygen Saturation - - Inhaled Oxygen Concentration - - Weight - - Height - - Body Mass Index - - Plan of Treatment Health Maintenance Due Date Last Done Comments Colorectal Cancer Screening Colonoscopy (10 Years) 1956 Hepatitis C 1974 DTaP, Tdap and Td Vaccines (1 - Tdap) 10/10/1975 Mammogram Screening 1996 Annual Medicare Wellness Visit 2021 Dexa Scan (General) 2021 Pneumococcal Vaccine: 65+ Years (1 of 1 - PCV) 2021 COVID-19 Vaccine (2 - season) 2024 11/13/2020 Influenza Adult (#1) 2024 04/20/2020, 08/15/2019, 04/24/2018, Additional history exists RSV Immunization or 60+ Years (1 - 1-dose 75+ series) 10/10/2031 Zoster Vaccines Completed 08/16/2020, 04/20/2020 Meningococcal B Vaccine Aged Out No l onger eligible based on patient's age to complete this topic Meningococcal Vaccine Aged Out No chi fifi eligible based on patient's age to complete this topic RSV Immunizations Under 20 Months Aged Out No longer eligible based on patient's age to complete this topic Insurance MEDICARE [facility] Care Teams Intelligence Applications Relationship Specialty Start Date End Date Trey Blount MD [address] [place] [address] PCP - General FAMILY MEDICINE SPORTS MEDICINE 10/31/22
--- OUTSIDE RECORDS SUMMARY | 2024-08-06 12:48 | XMS_ITS | Clinical Summary ---
Author Organization [facility] Address [address] [place] [address] Phone Care Team Providers Care Loss Prevention Leader Name Role Phone Donal Serrano MD Primary Care Provider + Allergies Active Allergy Reactions Criticality Noted Date Comments Ciprofloxacin Other (See Comments) 02/22/2016 Blisters Codeine Nausea and Vomiting Low 02/22/2016 Metronidazole Other (See Comments) 02/22/2016 Blisters Pentazocine Lactate Nausea and Vomiting Low 016 Propoxyphene Nausea and Vomiting Low 02/22/2016 Propoxyphene N-Acetaminophen Nausea and Vomiting Low 02/22/2016 Medications levothyroxine 25 mcg tablet Take 25 mcg by mouth daily early childhood aide classroom. Active venlafaxine (EFFEXOR XR) 150 mg Extended Release 24 hour capsule Take 150 mg by mouth daily. Active metFORMIN (GLUCOPHAGE) 500 mg tablet Take 500 mg by mouth 2 times daily with meals. Active HYDROcodone-acet aminophen (NORCO) 5-325 mg tablet Take 1 Tablet by mouth every 4 hours as needed for Pain, Moderate. Active meloxicam (MOBIC) 15 mg tablet Take 15 mg by mouth daily. Active cyclobenzaprine (FLEXERIL) 10 mg tablet Take 10 mg by mouth 3 times daily as needed for Spasm. Active atenolol (TENORMIN) 50 mg tablet Take 50 mg by mouth daily. Active omeprazole (PriLOSEC) 40 mg Capsule, Delayed Release(E.C.) Take 40 mg by mouth daily. Active atorvastatin (LIPITOR) 80 mg tablet Take 80 mg by mouth Daily LATE. Active ONETOUCH ULTRA TEST Strip 01/12/2016 Active Active Problems Problem Noted Date Diagnosed Date Morbid obesity with BMI of 40.0-44.9, adult 02/07 Family History Medical History Relation Name Comments Colon Cancer Brother Liver Cancer Brother Relation Name Status Comments Brother Social History Tobacco Use Types Packs/Day Years Used Date Smoking Tobacco: Never Alcohol Use Standard Drinks/Week Comments Not Asked 0 (1 standard drink = 0.6 oz pur e alcohol) Comments Unknown Sex and Gender Information Value Date Recorded Sex Assigned at Not on file Legal Sex Female 3:02 PM CDT Gender Identity Not on file Sexual Orientation Not on file Last Filed Vital Signs Vital Sign Reading Time Taken Comments Blood Pressure 136/61 02/22/2016 11:24 AM CDT lf t wrist Pulse 73 02/22/2016 11:24 AM CDT Temperature - - Respiratory Rate - - Oxygen Saturation - - Inhaled Oxygen Concentration - - Weight 118.4 kg (261 lb) 02/22/2016 11:24 AM CDT Height 162.6 cm (5' 4 ) 02/22/2016 11:24 AM CDT Body Mass Index 44.8 02/22/2016 11:24 AM CDT Plan of Treatment Health Maintenance Due Date Last Done Comments Pre-Diabetes and Diabetes Screening 1955 DTAP/TDAP/TD VACCINES (1 - Tdap) 10/10/1975 BREAST CANCER SCREENING 1996 COLORECTAL SCREENING 2001 Colorectal Cancer Screening 2001 FIT-DNA Q 3 years 2001 FIT/FOBT Q 1 year 2001 Flex Sig/CT Colonography Q 5 years 2001 PNEUMOCOCCAL VACCINE 65+ YEARS (1 of 1 - PCV) 10/10/19 07 ZOSTER VACCINE (1 of 2) 2006 RSV VACCINE (60+ or ) (1 - Risk 60-74 years 1-dose series) 2016 OSTEOPOROSIS SCREENING 2021 INFLUENZA VACCINE (#1) 2024 Insurance MEDICARE PART A AND B MEDICARE PART A AND B Care Teams Loss Prevention Leader Relationship Specialty Start Date End Date Donal Serrano MD [address] [place] [id number] PCP - General Internal Medicine 01/27/16
--- OUTSIDE RECORDS SUMMARY | 2024-08-06 12:48 | XMS_ITS | Patient Health Summary ---
Author Organization [facility] Address [address] [place] [address] Care Team Providers Care Radio Director Name Role Phone Donal Serrano MD Primary Care Provider [phone] Note from [facility],non-owned Affiliates and Associated Physician Practices is amultiple site organization consisting of ambulatory clinics and hospital sitesin [place], [place], [place] and [place]. This disclosure is being madepursuant to the Care Everywhere program and may not contain all information available regarding this patient. Last updated 18.[facility] Social History Tobacco Use Types Packs/Day Years [...] Mass Index 43.31 12/20/2017 10:20 AM CDT Procedures * CT ABDOMEN PELVIS W CONTRAST(Performed 05/26/2017) * COLONOSCOPY(Performed 02/27/2013) Results * CT ABDOMEN AND PELVIS WITH IV CONTRAST (05/26/2017) Anatomical Region Laterality Modality Abdomen, Pelvis Other Cabrera Andre MD CT ORDERABLES * COLONOSCOPY (02/27/2013) Cabrera Andre MD GENERIC SURGICAL HIS TORY Care Teams Radio Director Relationship Specialty Start Date End Date Donal Serrano MD [address] [place] [address] PCP - General Internal Medicine 11/15/17
--- OUTSIDE RECORDS SUMMARY | 2024-08-06 12:48 | XMS_ITS ---
Author Organization [facility] Address [address] [facility] [address] [place] [address] Care Team Providers Care Pipe Foreman Name Role Phone Israel Mitchell MD Primary Care Provider Bill Cline Unavailable [phone] Encounters Encounter Location Date Provider Diagnosis [facility] [address] [place] [address] 08/10/2023 Bill Sim Plan Of Treatment No Information Progress Notes * Desiree GHOSH KDOB: 7 (68 yo F)Acc No.[id number]:08/10/2023 Patient:?Desiree GHOSH Provider:?Bill Sim D.O. :1955???Age:67 Y???Sex:Female D ate:08/10/2023 Address:[address] [place], [place] [id number] Pcp:Israel Mitchell MD Subjective: * Chief Complaints: * ??? * Medical History:? Objective: * Vitals:? Assessment: Plan: * Treatment: * Images: * Electronic signature of Husam Sim DO on 08/06/2024 at 12:48 PM PIPELAYING FITTER Sign off status: Pending * Provider:?Bill Sim D.O. Date:? 024 Generated for Printi ng/Faxing/eTransmitting on:?08/06/2024 12:48 PM PIPELAYING FITTER
--- OUTSIDE RECORDS SUMMARY | 2024-08-06 12:48 | XMS_ITS | Clinical Summary ---
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 Gender Identity Not on file Sexual Orientation Not on file Plan of Treatment Health Maintenance Due Date Last Done Comments Colon Cancer Screening-Colonoscopy 1955 Depression Screening 1955 Fall Risk Assessment 1955 Hepatitis C Screening 1955 Osteoporosis Screening-Bone Density Scan 1955 DTaP/Tdap/Td Vaccine (1 - Tdap) 10/10/1967 Hepatitis B Screening 1974 Breast Cancer Screening-Mammogram 11/09/2017 017, 11/10/2015 Pneumococcal vaccine 65+ (1 of 1 - PCV) 2021 04/27/2012 Well Visit 65+ 2021 Covid-19 Vaccine (2 - 2023-2 5 season) 2024 11/13/2020 Influenza Vaccine (#1) 2024 0, 08/15/2019, 04/24/2018, Additional history exists Zoster Vaccine Completed 08/16/2020, 04/20/2020 Procedures Procedure Name Priority Date/Time Associated Diagnosis Comments SCREENING MAMMOGRAM BILATERAL W EVERARDO Routine 11/09/2016 12:00 AM CDT from Last 3 Months or Most Recently Relevant to Health Maintenance Results * Screening Mammogram Bilateral W Everardo (11/09/2016 12:00 AM CDT) Anatomical Region Laterality Modality Breast Bilateral Mammography 11/09/2016 4:48 PM CDT Narrative 11/09/2016 4:48 PM CDT - SCREENING MAMM W EVERARDO BI BILATERAL DIGITAL SCREENING MAMMOGRAM 3D/2D WITH CAD: 11/09/2016 CLINICAL: Routine screening. Patient has no complaints. ?? Comparison is made to exams dated: ??11/10/2015 [facility] and 07/16/2014 [facility]. ?? There are scattered fibroglandular elements in both breasts. ?? Current study was also evaluated with a Computer Aided Detection (CAD) system. ?? No significant masses, calcifications, or other findings are seen in either breast. ?? There has been no significant interval change. IMPRESSION: NEGATIVE There is no mammographic evidence of malignancy. A 1 year screening mammogram is recommended. ?? The patient will be contacted by letter. ?? Jose Armando Mosher M.D. ? lrp/penrad:11/10/2016 08:07:57 ?? copy to: Donal Ferrari M.D., ph: [phone], fax: [phone] letter sent: Normal Exam ?? Mammogram BI-RADS: 1 Negative Radiologist: JOSE ARMANDO MOSHER M.D. ?? Attending: ??ANTONIO BOB ??Mackenzie Requesting: ANTONIO BOB ??MValerie Requesting Fax: ?? Requesting ID: [id number] Attending Fax: ?? Attending ID: ?? [id number] Completed Time: ?? 11/09/2016 11:48 AM Dictated Time: ?N/A Transcribed Time: 11/10/2016 08:26 AM Signed by: ?MOSHERJOSE ARMANDO ANDRADE on 11/10/2016 08:26 AM Report To 1 ID: [id number] Report To 1 Name: DONAL FERRARI Report To 1 FAX: Report To 2 ID: Report To 2 Name: , Report To 2 FAX: Report To 3 ID: Report To 3 Name: , Report To 3 FAX: NextGen Order #: Procedure Note Miscellaneous, Not In File / Provider, MD Gisela - 12/03/2016 - SCREENING MAMM W EVERARDO BI BILATERAL DIGITAL SCREENING MAMMOGRAM 3D/2D WITH CAD: 11/09/2016 CLINICAL: Routine screening. Patient has no complaints. Comparison is made to exams dated: 11/10/2015 [facility] and 07/16/2014 [facility]. There are scattered fibroglandular elements in both breasts. Current study was also evaluated with a Computer Aided Detection (CAD) system. No significant masses, calcifications, or other findings are seen in either breast. There has been no significant interval change. IMPRESSION: NEGATIVE There is no mammographic evidence of malignancy. A 1 year screening mammogram is recommended. The patient will be contacted by letter. Jose Armando Mosher M.D. [facility]/penrad:11/10/2016 08:07:57 copy to: Donal Ferrari M.D., ph: [phone], fax: [phone] letter sent: Normal Exam Mammogram BI-RADS: 1 Negative Radiologist: JOSE ARMANDO MOSHER M.D. Attending: ANTONIO BOB M.D. Requesting: ANTONIO BOB M.D. Requesting Requesting ID: [id number] Attending Attending ID: [id number] Completed Time: 11/09/2016 11:48 AM Dictated Time: N/A Transcribed Time: 11/10/2016 08:26 AM Signed by: JOSE ARMANDO MOSHER M.D. on 11/10/2016 08:26 AM Report To 1 ID: [id number] Report To 1 Name: DONAL FERRARI Report To 1 FAX: Report To 2 ID: Report To 2 Name: , Report To 2 FAX: Report To 3 ID: Report To 3 Name: , Report To 3 FAX: NextGen Order #: Antonio Bob MD IMG MAMMO PROCEDURES Final Result from Last 3 Months or Most Recently Relevant to Health Maintenance Insurance [facility] HMO MEDICARE Care Teams Head Pastry Chef Relationship Specialty Start Date End Date Donal Ferrari MD [address] [facility] [address] [place] [id number] PCP - General 11/09/16
--- OUTSIDE RECORDS SUMMARY | 2024-08-06 12:48 | XMS_ITS | Encounter Summary ---
Author Organization [facility] Address [address] [place] [address]. [place], [place] [address] [place] [address] Care Team Providers Care Displayer Merchandise Name Role Phone Trey Blount MD Primary Care Provider [phone] Encounter Details Date Type Department Care Team (Late st Contact Info) Description 12/28/2022 Prep for Procedure [facility], [facility] [address] [place], [place] [id number] Myles Kirby MD [facility]. [facility] [address] [place] [address] Social History Tobacco Use Types Packs/Day Years [...] on file Sexual Orientation Not on file COVID-19 Exposure Response Date Recorded In the last 10 days, have yo u been in contact with someone who was confirmed or suspected to have Coronavirus/COVID-19? No / Unsure 12/15/2022 3:01 PM CDT documented as of this encounter Plan of Treatment Not on file documented as of this encounter Visit Diagnoses Diagnosis AAA (abdominal aortic aneurysm) without rupture (CMS/HCC)- Primary Abdominal aneurysm without mention of rupture documented in this encounter Care Teams Displayer Merchandise Relationship Specialty Start Date End Date Trey Blount MD [address] [place] [address] PCP - General FAMILY MEDIC[facility] SPORTS MEDICINE 10/31/22 documented as of this encounter
--- OUTSIDE RECORDS SUMMARY | 2024-08-06 12:48 | XMS_ITS | Continuity of Care Document ---
Author Organization [facility] Address [address] [place] [address] Phone Care Team Providers Care Body Joiner Name Role Phone [facility], [facility] Unavailable Unavail able Jose Bacon Unavailable Unavailable Procedures Procedure Date Progressive Lens, Plastic Frames Deluxe Tint Photochromatic, Plastic Tax - Medical Eye Exam & Treatment Refraction Office/outpatient Visit, Est Office/outpatient Visit, Est Office/outpatient Visit, Est Eye Exam Established Pt Advance Directives Directive Yes / No Effective Date File Name No Information Encounters Encounter Description Practice Location Reason(s) For Visit Diagnoses Date Provider Providers Copied on Encounter [facility], [address] [place] [address] [address], [place], [place], [id number], [place] tel:[phone] SEC [facility] No Information 0-200 7 [facility] . [address], [address], [place], [place], [address], [place]. tel:[phone] Referring Provider: Gilles Kauffman, [address] [place] [address] [address], [place], [address]. tel:[phone] sulting Provider: Jose Bacon, [address] [place] [address], [place], [address]. tel:[phone] [facility], [address], [place], [place], [address], [place] tel:[phone] [facility] No Information 7 Rayne Campoverde. [address] , [address], [place], [address], [place]. tel:[phone] Office/outpat ient Visit, [facility], [address], [place], [place], [address], [place] tel:[phone] SEC [facility] No Information 7 Katina Acevedo. [address] [facility] [address], [place], [address], [place]. tel:[phone] Office/outpat ient Visit, [facility], [address], [place], [place], [address], [place] tel:[phone] [facility] No Information 7 Katina Acevedo. [address], [place], [address], [place]. tel:[phone] Office/outpat ient Visit, [facility] Eye [facility], [address], [place], [place], [address], [place] tel:[phone] [facility] No Information 7 Katina Acevedo. [address], [place], [address], [place]. tel:[phone] Referring Provider: Kevin Kauffman, [address], [place], [address]. tel:[phone] [facility] Eye [facility], [address], [place], [place], [address], [place] tel:[phone] [facility] No Information 7 Betzy Brown. [address] , [address], [place], [address], [place]. tel:[phone] Family History Family Member Type Diagnosis Age At Onset No Information Payers Payer name Insurance type Covered republican ID Authoriza tion(s) No Information Social History Type Description Quantity Date Captured Comments Sex Female Smoking Status No Information Chief Complaint And Reason For Visit No Information Reason For Referral Reason For Referral No Information History Of Present Illness Encounter Date Complaint History Of Prese nt Illness No Information Functional Status Date Functional Assessmen t No Information Instructions Date Instruction Additional Infor mation No Information Assessments Type Assessment Date No Information Patient Care Teams Name Effective Dates (start - stop) Status Members No Information
--- OUTSIDE RECORDS SUMMARY | 2024-08-06 12:48 | XMS_ITS | Patient Health Record ---
Author Organization [facility] Address [address] [facility] [address] [place] [address] Care Team Providers Care Meal Attendant Name Role Phone Israel Mitchell MD Primary Care Provider Bill Cline Unavailable [phone] Allergies Allergen (clinical drug ingredient) Drug/Non Drug Allergy documented on EMR Reaction Allergy Type Onset Date Status Penicillin dizziness Drug Allergy 07/10/2023 activ e Reason For Referral No Information Problems Problem Type SNOMED Code ICD Code Onset Dates Problem Status W/U Status Risk Notes Problem 001939056 History of colon polyps (Z86.010) Active confirmed Problem 707393051 Chronic GERD (K21.9) Active confirmed Plan Of Treatment No Information Insurance Providers Payer Name Payer Address Payer Phone Subscriber Number Group Number Insured Name Patient Relationship to Insured Coverage Start Date Coverage End Date Aet[employer] Choice Pos II E2 [address] [place] [address] [phone] [id number] Federico Ghosh Spouse - patient is the spouse of the insured 3 [facility] Choice/ch oice Plus E2 [address] [address] [place] [address] [id number] Federico Ghosh Spouse - patient is the spouse of the insured 4 Medicare E2 [address] [address] [place] [address] [id number] Desiree Ghosh Self - patient is the insured Medical (General) History Medical History History ICD Code Asthma Sleep Apnea Hypertension Diabetes Thyroid Disease Diverticulosis Fatty Liver Diverticulitis GERD IBS Hemorrhoids Surgical History Surgery Date(Month/Year) Cholecystectomy Tonsillectomy Breast Biopsy Sinus Surgery Hysterectomy Colon / Bowel Surgery Cosmetic Surgery Joint Replacement
--- OUTSIDE RECORDS SUMMARY | 2024-08-06 12:48 | XMS_ITS | CONTINUITY OF CARE DOCUMENT ---
Author Name jacinto casey Address Unknown Organization [facility] Address [address] [place] [address] [address] [place] [address] Phone [phone] Care Team Providers Care Thread Separator Name Role Phone Triston QUIGLEY, Ivett Unavailable FERNANDA FERRARI MD Unavailable FERNANDA FERRARI MD Unavailable [phone] INSURANCE PROVIDERS Payer name Policy type / Coverage type [place] red constitution party ID UNICARE Other [id number]
--- OUTSIDE RECORDS SUMMARY | 2024-08-06 12:48 | XMS_ITS ---
Author Organization [facility] Address [address] [facility]. [address] [place] [address] Care Team Providers Care Order Processor Name Role Phone Israel Mitchell MD Primary Care Provider Bill Cline Unavailable [phone] Allergies Allergen (clinical drug ingredient) Drug/Non Drug Allergy documented on EMR Reaction Allergy Type Onset Date Status Penicillin dizziness Drug Allergy 07/10/2023 activ e REASON FOR VISIT Screen/Phxcp/CPAP/Asthma/5ft3 240 Problems Problem Type SNOMED Code ICD Code Onset Dates Problem Status W/U Status Risk Notes Problem 099900548 History of colon polyps (Z86.010) Active confirmed Encounters Encounter Location Date Provider Diagnosis [address] [address] 07/13/2023 Bill Sim Colon cancer screening Z12.11 ; History of colon polyps Z86.010 and Polyp of colon K63.5 Assessments Encounter Date Diagnosis (ICD Code) Assessment Notes Treatment Notes Treatment Clinical Notes Section Notes 07/13/2023 Colon cancer screening (ICD-10 - Z12.11) 07/13/2023 History of colon polyps (ICD-10 - Z86.010) 07/13/2023 Polyp of colon (ICD-10 - K63.5) Plan Of Treatment Next Appt Details Follow Up: * Colonoscopy 5 y ear, Reason: Progress Notes * Desiree GHOSH KDOB: 7 (67 yo F)Acc No.[id number]:07/13/2023 Patient:?Desiree Ghosh Provider:?Bill Sim D.O. :1955???Age:67 Y???Sex:Female D ate:07/13/2023 Address:[address] [place], [place] [address] Pcp:Israel Mitchell MD Subjective: * Chief Complaints: * ???Screen/Phxcp/CPAP/Asthma/ 5ft3 240 * Medical History:? * Surgical History:? * Hospitalization/Major Diagno stic Procedure:? * Family History:?Siblings: di agnosed with Colon polyp.?Children: diagnosed with Colon polyp.? * Medications:? * Allergies:?Penicillin: dizzi ness - Allergy - Onset Date 07/10/2023 Objective: Assessment: * Assessment: 1.?Colon cancer screening - Z12.11 (Primary)?2.?History of colon polyps - Z86.010?3.?Polyp of colon - K63.5? Plan: * Treatment: * Procedure Codes:?50263 LESIO N REMOVAL COLONOSCOPY, Modifiers: 33 * Follow Up:?* Colonoscopy 5 y ear * Images: * CHECK PAD MAKER Sign off status: Completed true * Provider:?Bill Sim D.O. Date:? 024 Generated for Rios dumont/Cecile/eTransmitting on:?08/06/2024 12:48 PM GAS CHECK PAD MAKER
--- OUTSIDE RECORDS SUMMARY | 2024-08-06 12:48 | XMS_ITS | Referral Summary ---
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 ?? There are scattered fibroglandular elements in [...] patient will be contacted by letter. ?? Lizbeth Mosher M.D. ? lrp/penrad:11/10/2016 08:07:57 ?? copy to: Fernanda Ferrari M.D., ph: [phone], fax: [phone] letter sent: Normal Exam ?? Mammogram BI-RADS: 1 Negative Radiologist: LIZBETH MOSHER M.D. ?? Attending: ??ANTONIO BOB ??Mackenzie Requesting: ANTONIO BOB ??Mackenzie Requesting Fax: ?? Requesting ID: [id number] Attending Fax: ?? Attending ID: ?? [id number] Completed Time: ?? 11/09/2016 11:48 AM Dictated Time: ?N/A Transcribed Time: 11/10/2016 08:26 AM Signed by: ?LIZBETH MOSHER ??MValerie on 11/10/2016 08:26 AM Report To 1 ID: [id number] Report To 1 Name: FERNANDA FERRARI Report To 1 FAX: Report To [...] Comparison is made to exams dated: 11/10/2015 [facility] and 07/16/2014 [facility]. There are scattered fibroglandular elements in both breasts. Current study was also evaluated with a Computer Aided Detection (CAD) system. No significant masses, calcifications, or other findings are seen in either breast. There has been no significant interval change. IMPRESSION: NEGATIVE There is no mammographic evidence of malignancy. A 1 year screening mammogram is recommended. The patient will be contacted by letter. Lizbeth Mosher M.D. [facility]/penrad:11/10/2016 08:07:57 copy to: Fernanda Ferrari M.D., ph: [phone], fax: [phone] letter sent: Normal Exam Mammogram BI-RADS: 1 Negative Radiologist: LIZBETH MOSHER M.D. Attending: ANTONIO BOB M.D. Requesting: ANTONIO BOB M.D. Requesting Requesting ID: [id number] Attending Attending ID: [id number] Completed Time: 11/09/2016 11:48 AM Dictated Time: N/A Transcribed Time: 11/10/2016 08:26 AM Signed by: LIZBETH MOSHER M.D. on 11/10/2016 08:26 AM Report To 1 ID: [id number] Report To 1 Name: FERNANDA FERRARI Report To 1 FAX: Report To 2 ID: Report To 2 Name: , Report To 2 FAX: Report To 3 ID: Report To 3 Name: , Report To 3 FAX: NextGen Order #: Antonio Bob MD IMG MAMMO PROCEDURES Final Result from Last 3 Months or Most Recently Relevant to Health Maintenance Insurance [employer] [facility] MEDICARE Care Teams Market Development Executive Relationship Specialty Start Date End Date Fernanda Ferrari MD [address] [place], [place] [id number] PCP - General 11/09/16
--- OUTSIDE RECORDS SUMMARY | 2024-08-06 12:48 | XMS_ITS | Referral Summary ---
Author Organization [facility] Address [address] [facility] [place] [address] Care Team Providers Care Mortgage Protection Specialist Name Role Phone Donal Serrano MD Primary Care Provider [phone] Source Comments [facility],non-[facility] Affiliates and Associated Physician Practices is amultiple site organization consisting of ambulatory clinics and hospital sitesin [place], [place], [place] and [place]. This disclosure is being madepursuant to the Care Everywhere program and may not contain all information available regarding this patient. Last updated 18.[facility] Social History Tobacco Use Types Packs/Day Years [...] 12/20/2017 10:20 AM CDT Plan of Treatment Not on file Procedures Procedure Name Priority Date/Time Associated Diagnosis Comments COLONOSCOPY Routine 02/27/2013 from Last 3 Months or Most Recently Relevant to Health Maintenance Results * COLONOSCOPY (02/27/2013) Cabrera Andre MD GENERIC SURGICAL HIS TORY from Last 3 Months or Most Recently Relevant to Health Maintenance Care Teams Mortgage Protection Specialist Relationship Specialty Start Date End Date Donal Serrano MD [address] [place] [id number] PCP - General Internal Medicine 11/15/17
[2024-08-06 13:00] LABS: Thyroid Stimulating Hormone 0.778 uIU/mL (0.465-4.680)
[2024-08-06 14:05] LABS: Hemoglobin A1C 5.3 % (<5.7)
[2024-08-06 15:38] LABS: Alanine Aminotransferase 22 U/L (6-35); Albumin Level 4.3 g/dL (3.5-5.1); Alkaline Phosphatase 86 U/L (38-126); Anion Gap 12 mmol/L (4-12); Aspartate Amino Transferase 23 U/L (14-36); Bilirubin,Total 0.8 mg/dL (0.2-1.3); Blood Urea Nitrogen 12 mg/dL (7-17); Carbon Dioxide 23 mmol/L (22-30); Chloride 105 mmol/L (98-107); Cholesterol 224 mg/dL (0-200); Estimated Glomerular Filt Rate > 60; Glucose 96 mg/dL (65-110); HDL Direct 44 mg/dL; Potassium 4.1 mmol/L (3.4-5.0); Sodium 140 mmol/L (137-145); Triglycerides 207 mg/dL (<150)
== END 2024-08-06 11:32 | disposition home or self-care (01) ==
LOC: ANHLAB 11:39
PROVIDERS: PCP Family Medicine; Visit Provider Family Medicine
DX: E78.5 Hyperlipidemia, unspecified (principal); E03.9 Hypothyroidism, unspecified; E11.9 Type 2 diabetes mellitus without complications; E55.9 Vitamin D deficiency, unspecified; E66.9 Obesity, unspecified; I10 Essential (primary) hypertension; J45.909 Unspecified asthma, uncomplicated; K21.9 Gastro-esophageal reflux disease without esophagitis; R00.2 Palpitations; R53.83 Other fatigue; I71.9 Aortic aneurysm of unspecified site, without rupture; M19.90 Unspecified osteoarthritis, unspecified site; Z13.21 Encounter for screening for nutritional disorder
CPT/HCPCS: 36415; 80053; 80061; 81001; 82607; 83036; 84443; 85025

== ENCOUNTER 2024-09-03 13:02 | Outpatient (CLI) | payer MEDICARE, OTHER, SELFPAY ==
--- NOTE | ~2024-09-03 | XR_ITS ---
Exam: Abdomen 1V HISTORY: kidney stones. F/U RT SIDE STONE. HX CHOLECYSTECTOMY COMPARISON: 04/05/2023. Reference is also made to a CT examination of the abdomen and pelvis dated 10/08 TECHNIQUE: Supine images of the abdomen FINDINGS: Bowel gas pattern is non-obstructive. There is no free air or deep sulci. Bulky calcifications projecting lateral and caudal to the expected course of the ureters and bladder. No renal calculi are suspected. Lung bases are unremarkable. Bones and soft tissues are unremarkable. IMPRESSION: Nonspecific, nonobstructive bowel gas pattern. No urolithiasis identified. Reviewed, dictated and finalized at location A. T PUMP OPERATOR
--- OUTSIDE RECORDS SUMMARY | 2024-09-03 14:59 | XMS_ITS ---
Author Organization [employer] [facility] [facility] [facility] Address [address] [facility] [address] [place] [address] Care Team Providers Care Hiv Cts Specialist Name Role Phone Israel Mitchell MD Primary Care Provider Bill Cline Unavailable [phone] Encounters Encounter Location Date Provider Diagnosis [facility] [address] [place] [address] 08/10/2023 Bill Sim Plan Of Treatment No Information Progress Notes * Desiree PASTRANA KDOB: 7 (68 yo F)Acc No.[id number]:08/10/2023 Patient: Desiree WAY Provider: Rosibel Sim D.O. :1955 A ge:67 Y S ex:Female Date:08/10/2023 Address:[address] [place] [address] Pcp:Israel Mitchell MD Subjective: * Chief Complaints: * * Medical History: Objective: * Vitals: Assessment: Plan: * Treatment: * Images: * Electronic signature of Husam Sim DO on 09/03/2024 at 02:59 PM JAVA PROGRAMMER Sign off status: Pending * Provider: Rosibel Sim D.O. Date: 08/10/2023 Generated for Printi ng/Faxing/eTransmitting on: 09/03/2024 02:59 PM JAVA PROGRAMMER
--- OUTSIDE RECORDS SUMMARY | 2024-09-03 14:59 | XMS_ITS | Patient Health Record ---
Author Organization [employer] Address [address] [place] [address] Care Team Providers Care Grain Merchandiser Name Role Phone Israel Mitchell MD Primary Care Provider Bill Cline Unavailable [phone] Allergies Allergen (clinical drug ingredient) Drug/Non Drug Allergy documented on EMR Reaction Allergy Type Onset Date Status Penicillin dizziness Drug Allergy 07/10/2023 activ e Reason For Referral No Information Problems Problem Type SNOMED Code ICD Code Onset Dates Problem Status W/U Status Risk Notes Problem [id number] History of colon polyps (Z86.010) Active confirmed Problem [id number] Chronic GERD (K21.9) Active confirmed Plan Of Treatment No Information Insurance Providers Payer Name Payer Address Payer Phone Subscriber Number Group Number Insured Name Patient Relationship to Insured Coverage Start Date Coverage End Date Aetna Choice Pos II E2 [address] [place] [address] [phone] [id number] Federico Ghosh Spouse - patient is the spouse of the insured 3 [facility] Choice/ch oice Plus E2 [address] [address] [place] [address] [id number] Federico Ghosh Spouse - patient is the spouse of the insured 4 Medicare E2 [address] [address] [place] [address] [id number] Desiree Ghosh Self - patient is the insured Medical (General) History Medical History History ICD Code Asthma Sleep Apnea Hypertension Diabetes Thyroid Disease Diverticulosis Fatty Liver Diverticulitis GERD IBS Hemorrhoids Surgical History Surgery Date(Month/Year) Cholecystectomy Tonsillectomy Breast Biopsy Sinus Surgery Hysterectomy Colon / Bowel Surgery Cosmetic Surgery Joint Replacement
--- OUTSIDE RECORDS SUMMARY | 2024-09-03 14:59 | XMS_ITS | Patient Health Summary ---
Author Organization [facility] Address [address] [place] [address] Care Team Providers Care Nuclear Medicine Medical Director Name Role Phone Donal Serrano MD Primary Care Provider [phone] Note from [facility],non-owned Affiliates and Associated Physician Practices is amultiple site organization consisting of ambulatory clinics and hospital sitesin [place], [place], [place] and [place]. This disclosure is being madepursuant to the Care Everywhere program and may not contain all information available regarding this patient. Last updated 18.[facility] Social History Tobacco Use Types Packs/Day [...] MD GENERIC SURGICAL HIS TORY Care Teams Nuclear Medicine Medical Director Relationship Specialty Start Date End Date Donal Serrano MD [address] [place] [address] PCP - General Internal Medicine 11/15/17
--- OUTSIDE RECORDS SUMMARY | 2024-09-03 14:59 | XMS_ITS | CONTINUITY OF CARE DOCUMENT ---
Author Name jacinto casey Address Unknown Organization [facility] Address [id number] [place] [address] [address] [place] [address] Phone [phone] Care Team Providers Care Regional Psychiatric Director Name Role Phone Triston QUIGLEY, Ivett Unavailable FERNANDA FERRARI MD Unavailable [phone] FERNANDA FERRARI MD Unavailable INSURANCE PROVIDERS Payer name Policy type / Coverage type Graham red constitution party ID UNICARE Other [id number]
--- OUTSIDE RECORDS SUMMARY | 2024-09-03 14:59 | XMS_ITS | Clinical Summary ---
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 Gender Identity Not on file Sexual Orientation Not on file Plan of Treatment Health Maintenance Due Date Last Done Comments Colon Cancer Screening-Colonoscopy 1955 Depression Screening 1956 Fall Risk Assessment 1955 Hepatitis C Screening 1955 Osteoporosis Screening-Bone Density Scan 1956 DTaP/Tdap/Td Vaccine (1 - Tdap) 10/10/1967 Hepatitis B Screening 1974 Pneumococcal vaccine 65+ (1 of 1 - PCV) 2006 04/27/2012 Breast Cancer Screening-Mammogram 11/09/2017 017, 11/10/2015 Well Visit 65+ 2021 Covid-19 Vaccine (2 [...] Comparison is made to exams dated: 11/10/2015 [facility] and 07/16/2014 [facility]. There are scattered fibroglandular elements [...] contacted by letter. Jose Armando Mosher M.D. [facility]/penrad:11/10/2016 08:07:57 copy to: Donal Ferrari M.D., ph: [phone], fax: [phone] letter sent: Normal Exam Mammogram BI-RADS: 1 Negative Radiologist: JOSE ARMANDO MOSHER M.D. Attending: ANTONIO BOB M.D. Requesting: ANTONIO BOB M.D. Requesting Requesting ID: [id number] Attending Attending ID: [id number] Completed Time: 11/09/2016 11:48 AM Dictated Time: N/A Transcribed Time: 11/10/2016 08:26 AM Signed by: JOSE ARMANDO MOSHER M.D. on 11/10/2016 08:26 AM Report To 1 ID: [id number] Report To 1 Name: DONAL FERRARI Report [...] Comparison is made to exams dated: 11/10/2015 [facility] and 07/16/2014 [facility]. There are scattered fibroglandular elements [...] contacted by letter. Jose Armando Mosher M.D. [facility]/penrad:11/10/2016 08:07:57 copy to: Donal Ferrari M.D., ph: [phone], fax: [phone] letter sent: Normal Exam Mammogram BI-RADS: 1 Negative Radiologist: JOSE ARMANDO MOSHER M.D. Attending: ANTONIO BOB M.D. Requesting: ANTONIO BOB M.D. Requesting Requesting ID: [id number] Attending Attending ID: [id number] Completed Time: 11/09/2016 11:48 AM Dictated Time: N/A Transcribed Time: 11/10/2016 08:26 AM Signed by: JOSE ARMANDO MOSHER M.D. on 11/10/2016 08:26 AM Report To 1 ID: [id number] Report To 1 Name: DONAL FERRARI Report To 1 FAX: Report To 2 ID: Report To 2 Name: , Report To 2 FAX: Report To 3 ID: Report To 3 Name: , Report To 3 FAX: NextGen Order #: us Antonio Bob MD IMG MAMMO PROCEDURES Final Result from Last 3 Months or Most Recently Relevant to Health Maintenance Insurance AETNA [facility] HMO MEDICARE Care Teams Infectious Disease Technician Relationship Specialty Start Date End Date Donal Ferrari MD [address] [facility] [address] [facility] [address] [place] [address] PCP - General 11/09/16
--- OUTSIDE RECORDS SUMMARY | 2024-09-03 14:59 | XMS_ITS ---
Author Organization [employer] Address [address] [facility]. [address] [place] [address] Care Team Providers Care Drop Worker Name Role Phone Israel Mitchell MD Primary Care Provider Bill Cline Unavailable [phone] Allergies Allergen (clinical drug ingredient) Drug/Non Drug Allergy documented on EMR Reaction Allergy Type Onset Date Status Penicillin dizziness Drug Allergy 07/10/2023 activ e REASON FOR VISIT Screen/Phxcp/CPAP/Asthma/5ft3 240 Problems Problem Type SNOMED Code ICD Code Onset Dates Problem Status W/U Status Risk Notes Problem [id number] History of colon polyps (Z86.010) Active confirmed Encounters Encounter Location Date Provider Diagnosis [address] [address] 07/13/2023 Bill Sim Colon cancer screening Z12.11 [...] Desiree GHOSH KDOB: 7 (67 yo F)Acc No.[id number]:07/13/2023 Patient: Desiree Metcalf Provider: Rosibel Sim D.O. :1955 A ge:67 Y S ex:Female Date:07/13/2023 Address:[address] [place], [place] [address] Pcp:Israel Mitchell MD Subjective: * Chief Complaints: * S creen/Phxcp/CPAP/Asthma/5ft3 240 * Medical History: * Surgical History: * Hospitalization/Major Diagno stic Procedure: * Family History: S esteban: diagnosed with Colon polyp. C evan: diagnosed with Colon polyp. * Medications: * Allergies: P enicillin: dizziness - Allergy - Onset Date 07/10/2023 Objective: Assessment: * Assessment: 1. C olon cancer screening - Z12.11 (Primary) 2 . H istory of colon polyps - Z86.010?3. P olyp of colon - K63.5 Plan: * Treatment: * Procedure Codes: 4 5385 LESION REMOVAL COLONOSCOPY, Modifiers: 33 * Follow Up: * Colonoscopy 5 year * Images: * STRIAL X RAY OPERATOR Sign off status: Completed true * Provider: Rosibel Sim D.O. Date: 0 07/13/2023 Generated for Rios dumont/Cecile/Rebeccaitting on: 0 09/03/2024 02:59 PM INDUSTRIAL X RAY OPERATOR
--- OUTSIDE RECORDS SUMMARY | 2024-09-03 14:59 | XMS_ITS | Clinical Summary ---
Author Organization [facility] Address [address] [facility] [place] [address] Care Team Providers Care Anthropometrist Name Role Phone Donal Serrano MD Primary Care Provider Source Comments [email or web address],non-[facility] Affiliates and Associated Physician Practices is amultiple site organization consisting of ambulatory clinics and hospital sitesin [place], [place], [place] and [place]. This disclosure is being madepursuant to the Care Everywhere program and may not contain all information available regarding this patient. Last updated 18.[email or web address] Social History Tobacco Use Types Packs/Day Years [...] LIPID TESTING 1955 MAMMOGRAM 1955 MEDICARE AWV 12 MONTHS 1955 HEPATITIS C SCREENING 10/05/1974 [...] 13 Colorectal Cancer Screening 02/27/2023 COVID-19 VACCINE (1 - 2023-2 5 season) 2024 INFLUENZA VACCINE [...] Recently Relevant to Health Maintenance Care Teams Anthropometrist Relationship Specialty Start Date End Date Donal Serrano MD [address] [place] [address] PCP - General Internal Medicine 11/15/17
--- OUTSIDE RECORDS SUMMARY | 2024-09-03 14:59 | XMS_ITS ---
Author Organization [facility] [employer], [facility] Address [address] [place] [address] [address] [place] [address] Care Team Providers Care Community Ambassador Name Role Phone Israel Mitchell MD Primary Care Provider Bill Cline Unavailable [phone] Encounters Encounter Location Date Provider Diagnosis [facility], [address] [place] [address] 07/13/2023 Bill Sim Plan Of Treatment No Information Progress Notes * Desiree GHOSH KDOB: 7 (68 yo F)Acc No.[id number]:07/13/2023 Patient: Desiree WAY :1955 A ge:67 Y S ex:Female Address:[address] [place] [address] Subjective: * Chief Complaints: * * Medical History: * Surgical History: * Hospitalization/Major Diagno stic Procedure: * Medications: Objective: * Vitals: * Physical Examination: Assessment: Plan: * Treatment: * Procedure Codes: * Preventive Medicine: Screenings: C olonoscopy Was last colonoscopy performed three or more years ago? Y es * true * Date: Generated for Printi julia/Facoleg/eTransmitting on: 0 09/03/2024 02:59 PM ADULT BASIC STUDIES TEACHER
--- OUTSIDE RECORDS SUMMARY | 2024-09-03 14:59 | XMS_ITS | Referral Summary ---
Author Organization [facility] Address [address] [facility] [place] [address] Care Team Providers Care Produce Department Manager Name Role Phone Donal Serrano MD Primary Care Provider [phone] [facility],non-[facility] Affiliates and Associated Physician Practices is amultiple site organization consisting of ambulatory clinics and hospital sitesin [place], [place], [place] and [place]. This disclosure is being madepursuant to the Care Everywhere program and may not contain all information available regarding this patient. Last updated 18.[facility] [employer] Social History Tobacco Use Types Packs/Day Years [...] Recently Relevant to Health Maintenance Care Teams Produce Department Manager Relationship Specialty Start Date End Date Donal Serrano MD [address] [place] [phone] PCP - General Internal Medicine 11/15/17
--- OUTSIDE RECORDS SUMMARY | 2024-09-03 14:59 | XMS_ITS | Encounter Summary ---
Author Organization [facility] Address [address] [place] [address] Care Team Providers Care Repairer Engine Production Name Role Phone Trey Blount MD Primary Care Provider [phone] Encounter Details Date Type Department Care Team (Late st Contact Info) Description 12/28/2022 Prep for Procedure [facility] [address] [place], [place] [phone] Myles Kirby MD [facility] [address] [place], [place] [id number] Social History Tobacco Use Types Packs/Day Years [...] rupture documented in this encounter Care Teams Repairer Engine Production Relationship Specialty Start Date End Date Trey Blount MD [address] [place] [address] PCP - General FAMILY MEDICINE SPORTS MEDICINE 10/31/22 documented as of this encounter
--- OUTSIDE RECORDS SUMMARY | 2024-09-03 14:59 | XMS_ITS | Clinical Summary ---
Author Organization [facility] Address [address] [place] [address] Phone Care Team Providers Care Culturist Name Role Phone Donal Serrano MD Primary [...] tablet Take 25 mcg by mouth daily investigator fraud. Active venlafaxine (EFFEXOR XR) 150 mg Extended [...] MEDICARE PART A AND B Care Teams Culturist Relationship Specialty Start Date End Date Donal Serrano MD [address] [place] [address] PCP - General Internal Medicine 01/27/16
--- OUTSIDE RECORDS SUMMARY | 2024-09-03 14:59 | XMS_ITS | Clinical Summary ---
Author Organization [facility] Address [address] [place] [address] Care Team Providers Care Telephone Ad Taker Name Role Phone Trey Blount MD Primary Care Provider Allergies Active Allergy Reactions Criticality Noted Date [...] (12/28/2022): Added automatically from request for surgery [id number] Infrarenal abdominal aortic aneurysm (AAA) witho ut rupture 12/19/2022 Splenic artery aneurysm 12/19/2022 Morbid obesity with body mas s index of 40.0-44.9 in adult ([facility]) 02/22/2016 Family History Medical History Relation Comments [...] age to complete this topic Insurance MEDICARE AET Care Teams Telephone Ad Taker Relationship Specialty Start Date End Date Trey Blount MD [address] [place] [address] PCP - General FAMILY MEDICINE SPORTS MEDICINE 10/31/22
--- OUTSIDE RECORDS SUMMARY | 2024-09-03 14:59 | XMS_ITS | Referral Summary ---
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 Gender Identity Not on file Sexual Orientation Not on file Plan of Treatment Not on file Procedures Procedure Name Priority Date/Time Associated Diagnosis Comments SCREENING MAMMOGRAM BILATERAL W MARY Routine 11/09/2016 12:00 AM CDT from Last 3 Months or Most Recently Relevant to Health Maintenance Results * Screening Mammogram Bilateral W Mary (11/09/2016 12:00 AM CDT) Anatomical Region Laterality Modality Breast Bilateral Mammography 11/09/2016 4:48 PM CDT Narrative 11/09/2016 4:48 PM CDT - SCREENING MAMM W MARY BI BILATERAL DIGITAL SCREENING MAMMOGRAM 3D/2D WITH CAD: 11/09/2016 CLINICAL: Routine screening. Patient has no complaints. Comparison is made to exams dated: 11/10/2015 [facility] and 07/16/2014 [facility]. There are scattered fibroglandular elements in [...] contacted by letter. Jose Armando Mosher M.D. [facility]/penrad:11/10/2016 08:07:57 copy to: Donal Ferrari M.D., ph: [phone], fax: [phone] letter sent: Normal Exam Mammogram BI-RADS: 1 Negative Radiologist: JOSE ARMANDO MOSHER M.D. Attending: ATNONIO BOB M.D. Requesting: ANTONIO BOB M.D. Requesting Requesting ID: [id number] Attending Attending ID: [id number] Completed Time: 11/09/2016 11:48 AM Dictated Time: N/A Transcribed Time: 11/10/2016 08:26 AM Signed by: JOSE ARMANDO MOSHER M.D. on 11/10/2016 08:26 AM Report To 1 ID: [id number] Report To 1 Name: DONAL FERRARI Report To 1 FAX: Report To 2 ID: Report To 2 Name: , Report To 2 FAX: Report To 3 ID: Report To 3 Name: , Report To 3 FAX: NextGen Order #: Procedure Note Miscellaneous, Not In File / Provider, MD Gisela - 12/03/2016 - SCREENING MAMM W MARY BI BILATERAL DIGITAL SCREENING MAMMOGRAM 3D/2D WITH CAD: 11/09/2016 CLINICAL: Routine screening. Patient has no complaints. Comparison is made to exams dated: 11/10/2015 [facility] and 07/16/2014 [facility]. There are scattered fibroglandular elements in [...] contacted by letter. Jose Armando Mosher M.D. [facility]/penrad:11/10/2016 08:07:57 copy to: Donal Ferrari M.D., ph: [phone], fax: [phone] letter sent: Normal Exam Mammogram BI-RADS: 1 Negative Radiologist: JOSE ARMANDO MOSHER M.D. Attending: ANTONIO BOB M.D. Requesting: ANTONIO BOB M.D. Requesting Requesting ID: [id number] Attending Attending ID: [id number] Completed Time: 11/09/2016 11:48 AM Dictated Time: N/A Transcribed Time: 11/10/2016 08:26 AM Signed by: JOSE ARMANDO MOSHER M.D. on 11/10/2016 08:26 AM Report To 1 ID: [id number] Report To 1 Name: DONAL FERRARI Report To 1 FAX: Report To 2 ID: Report To 2 Name: , Report To 2 FAX: Report To 3 ID: Report To 3 Name: , Report To 3 FAX: NextGen Order #: Antonio Bob MD IMG MAMMO PROCEDURES Final Result from Last 3 Months or Most Recently Relevant to Health Maintenance [facility] Care Teams Ecmo Specialist Relationship Specialty Start Date End Date Donal Ferrari MD [address] [place] [id number] PCP - General 11/09/16
== END 2024-09-03 13:03 | disposition home or self-care (01) ==
PROVIDERS: PCP Family Medicine; Visit Provider Urology
DX: Z87.442 Personal history of urinary calculi (principal)
CPT/HCPCS: 74018

== ENCOUNTER 2024-12-10 08:45 | Outpatient (CLI) | payer MEDICARE, OTHER, SELFPAY ==
--- NOTE | ~2024-12-10 | XR_ITS ---
Left ankle Technique: AP, oblique, and lateral views were obtained. Clinical History: Pain Findings: No acute fracture or dislocation is seen. Osseous alignment is anatomic. Ankle mortise and other visualized joint spaces are preserved. Soft tissues are otherwise unremarkable. Impression: Unremarkable left ankle. Reviewed, dictated and finalized at location . Impression: Unremarkable left ankle.
--- OUTSIDE RECORDS SUMMARY | 2024-12-10 08:57 | XMS_ITS | Clinical Summary ---
Author Organization [facility] Address [address] [place] [address] Phone Care Team Providers Care Beam Saw Operator Name Role Phone Donal Serrano MD Primary [...] tablet Take 25 mcg by mouth daily manager investigations. Active venlafaxine (EFFEXOR XR) 150 mg Extended [...] 11:24 AM CDT Height 162.6 cm (5' 4) 02/22/2016 11:24 AM CDT Body Mass Index 44.8 02/22/2016 11:24 AM CDT Plan of Treatment Health Maintenance Due Date Last Done Comments Pre-Diabetes and Diabetes Screening 1955 DTAP/TDAP/TD VACCINES (1 - Tdap) 10/10/1975 BREAST CANCER SCREENING 1996 COLORECTAL SCREENING 2001 Colorectal Cancer Screening 2001 FIT-DNA Q 3 years 2001 FIT/FOBT Q 1 year 2001 Flex Sig/CT Colonography Q 5 years 2001 PNEUMOCOCCAL VACCINE 50+ YEARS (1 of 1 - PCV) 10/10/19 07 ZOSTER VACCINE (1 of 2) 2006 RSV VACCINE (60+ or ) (1 - Risk 60-74 years 1-dose series) 2016 OSTEOPOROSIS SCREENING 2021 INFLUENZA VACCINE (#1) 2024 Insurance MEDICARE PART A AND B MEDICARE PART A AND B Care Teams Beam Saw Operator Relationship Specialty Start Date End Date Donal Serrano MD [address] [place] [address] PCP - General Internal Medicine 01/27/16
--- OUTSIDE RECORDS SUMMARY | 2024-12-10 08:57 | XMS_ITS | Clinical Summary ---
Author Organization 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 There are scattered fibroglandular elements [...] contacted by letter. Jose Armando Mosher M.D. [facility]/penmaddy:11/10/2016 08:07:57 copy to: Donal Ferrari M.D., ph: [phone], fax: [phone] letter sent: Normal Exam Mammogram BI-RADS: 1 Negative Radiologist: JOSE ARMANDO MOSHER M.D. Attending: ANTONIO BOB M.D. Requesting: ANTONIO BOB M.D. Requesting Requesting ID: [id number] Attending Attending ID: [id number] Completed Time: 11/09/2016 11:48 AM Dictated Time: N/A Transcribed Time: 11/10/2016 08:26 AM Signed by: JOSE ARMANDO MOSHER M.D. on 11/10/2016 08:26 AM Report To 1 ID: [id number] Report To 1 Name: DONAL FERRARI Report [...] Comparison is made to exams dated: 11/10/2015 [facility] and 07/16/2014 [facility]. There are scattered fibroglandular elements [...] contacted by letter. Jose Armando Mosher M.D. [facility]/penrad:11/10/2016 08:07:57 copy to: Donal Ferrari M.D., ph: [phone], fax: [phone] letter sent: Normal Exam Mammogram BI-RADS: 1 Negative Radiologist: JOSE ARMANDO MOSHER M.D. Attending: ANTONIO BOB M.D. Requesting: ANTONIO BOB M.D. Requesting Requesting ID: [id number] Attending Attending ID: [id number] Completed Time: 11/09/2016 11:48 AM Dictated Time: N/A Transcribed Time: 11/10/2016 08:26 AM Signed by: JOSE ARMANDO MOSHER M.D. on 11/10/2016 08:26 AM Report To 1 ID: [id number] Report To 1 Name: DONAL FERRARI Report To 1 FAX: Report To 2 ID: Report To 2 Name: , Report To 2 FAX: Report To 3 ID: Report To 3 Name: , Report To 3 FAX: NextGen Order #: us Antonio Bob MD IMG MAMMO PROCEDURES Final Result from Last 3 Months or Most Recently Relevant to Health Maintenance Insurance [employer] [facility] HMO MEDICARE Care Teams Sightseeing Guide Relationship Specialty Start Date End Date Donal Ferrari MD [address] [facility] [address] [place] [address] PCP - General 11/09/16
--- OUTSIDE RECORDS SUMMARY | 2024-12-10 08:57 | XMS_ITS ---
Author Organization [employer] Address [address] [facility] [address] [place] [address] Care Team Providers Care Bicycle Fitter Name Role Phone Israel Mitchell MD Primary Care Provider Bill Cline Unavailable [phone] Encounters Encounter Location Date Provider Diagnosis [facility] [address] [place] [address] 08/10/2023 Bill Sim Plan Of Treatment No Information Progress Notes * Desiree PASTRANA KDOB: 7 (69 yo F)Acc No.[id number]:08/10/2023 Patient: Desiree WAY Provider: Rosibel Sim D.O. :1955 A ge:67 Y S ex:Female Date:08/10/2023 Address:[address] [place] [address] Pcp:Israel Mitchell MD Subjective: * Chief Complaints: * * Medical History: Objective: * Vitals: Assessment: Plan: * Treatment: * Images: * Electronic signature of Husam Sim DO on 12/10/2024 at 08:57 AM CDT Sign off status: Pending * Provider: Rosibel Sim D.O. Date: 08/10/2023 Generated for Estelitai ng/Faxing/eTransmitting on: 0 12/10/2024 08:57 AM CDT
--- OUTSIDE RECORDS SUMMARY | 2024-12-10 08:57 | XMS_ITS | CONTINUITY OF CARE DOCUMENT ---
Author Name jacinto casey Address Unknown Organization [facility] Address [id number] [place] [address] [address] [place] [address] Phone [phone] Care Team Providers Care Decorative Cutting Machine Tender Name Role Phone Triston QUIGLEY, Ivett Unavailable [phone] FERNANDA FERRARI MD Unavailable FERNANDA FERRAIR MD Unavailable INSURANCE PROVIDERS Payer name Policy type / Coverage type Evans red republican ID UNICARE Other [id number]
--- OUTSIDE RECORDS SUMMARY | 2024-12-10 08:57 | XMS_ITS | Patient Health Record ---
Author Organization [employer] Address [address] [facility] [address] [place] [address] Care Team Providers Care Auto Tire Recapper Name Role Phone Israel Mitchell MD Primary Care Provider Bill Cline Unavailable [phone] Allergies Allergen (clinical drug ingredient) Drug/Non Drug Allergy documented on EMR Reaction Allergy Type Onset Date Status Penicillin dizziness Drug Allergy 07/10/2023 activ e Reason For Referral No Information Problems Problem Type SNOMED Code ICD Code Onset Dates Problem Status W/U Status Risk Notes Problem [id number] History of colon polyps (Z86.010) Active confirmed Problem 398020909 Chronic GERD (K21.9) Active confirmed Plan Of Treatment No Information Insurance Providers Payer Name Payer Address Payer Phone Subscriber Number Group Number Insured Name Patient Relationship to Insured Coverage Start Date Coverage End Date Aetna Choice Pos II E2 [address] [place] [address] [phone] [id number] Federico Ghosh Spouse - patient is the spouse of the insured 3 [facility] Choice/ch oice Plus E2 [address] [address] [place] [address] [phone] [id number] Federico Ghosh Spouse - patient is the spouse of the insured 4 Medicare E2 [address] [address] [place] [address] [id number] Desiree Ghosh Self - patient is the insured Medical (General) History Medical History History ICD Code Asthma Sleep Apnea Hypertension Diabetes Thyroid Disease Diverticulosis Fatty Liver Diverticulitis GERD IBS Hemorrhoids Surgical History Surgery Date(Month/Year) Cholecystectomy Tonsillectomy Breast Biopsy Sinus Surgery Hysterectomy Colon / Bowel Surgery Cosmetic Surgery Joint Replacement
--- OUTSIDE RECORDS SUMMARY | 2024-12-10 08:57 | XMS_ITS | Referral Summary ---
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 There are scattered fibroglandular elements [...] contacted by letter. Jose Armando Mosher M.D. [facility]:11/10/2016 08:07:57 copy to: Donal Ferrari M.D., ph: [phone], fax: [phone] letter sent: Normal Exam Mammogram BI-RADS: 1 Negative Radiologist: JOSE ARMANDO MOSHER M.D. Attending: ANTONIO BOB M.D. Requesting: ANTONIO BOB M.D. Requesting Requesting ID: [id number] Attending Attending ID: [id number] Completed Time: 11/09/2016 11:48 AM Dictated Time: N/A Transcribed Time: 11/10/2016 08:26 AM Signed by: JOSE ARMANDO MOSHER M.D. on 11/10/2016 08:26 AM Report To 1 ID: [id number] Report To 1 Name: DONAL FERRARI Report [...] made to exams dated: 11/10/2015 [facility] and 07/16/2014 [facility]. There are scattered fibroglandular elements [...] 08:07:57 copy to: Donal Ferrari M.D., ph: [phone], fax: [phone] letter sent: Normal Exam Mammogram BI-RADS: 1 Negative Radiologist: JOSE ARMANDO MOSHER M.D. Attending: ANTONIO BOB M.D. Requesting: ANTONIO OBB M.D. Requesting Requesting ID: [id number] Attending Attending ID: [id number] Completed Time: 11/09/2016 11:48 AM Dictated Time: N/A Transcribed Time: 11/10/2016 08:26 AM Signed by: JOSE ARMANDO MOSHER M.D. on 11/10/2016 08:26 AM Report To 1 ID: [id number] Report To 1 Name: DONAL FERRARI Report To 1 FAX: Report To 2 ID: Report To 2 Name: , Report To 2 FAX: Report To 3 ID: Report To 3 Name: , Report To 3 FAX: NextGen Order #: Antonio Bob MD IMG MAMMO PROCEDURES Final Result from Last 3 Months or Most Recently Relevant to Health Maintenance [facility] Care Teams Fire Alarm Installer Relationship Specialty Start Date End Date Donal Ferrari MD [address] [facility] [place] [id number] PCP - General 11/09/16
--- OUTSIDE RECORDS SUMMARY | 2024-12-10 08:57 | XMS_ITS | Clinical Summary ---
Author Organization [facility] Address [address] [place] [address] Care Team Providers Care Check Processor Name Role Phone Donal Serrano MD Primary Care Provider [phone] Source Comments [facility] Affiliates and Associated Physician Practices is amultiple site organization consisting of ambulatory clinics and hospital sitesin [place], [place], [place] and [place]. This disclosure is being madepursuant to the Care Everywhere program and may not contain all information available regarding this patient. 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 Gender Identity Not on file Sexual Orientation Not on file Last Filed Vital Signs Vital Sign Reading Time Taken Comments Blood Pressure - - Pulse - - Temperature - - Respiratory Rate - - Oxygen Saturation - - Inhaled Oxygen Concentration - - Weight 112.7 kg (248 lb 6.4 oz) 018 10:20 AM CDT Height 161.3 cm (5' 3.5) 12/20/2017 10 :20 AM CDT Body Mass Index 43.31 12/20/2017 10:20 AM CDT Plan of Treatment Health Maintenance Due Date Last Done Comments BONE DENSITY TESTING 1955 COLOGUARD (AGES 45-75) - COL ON CA SCREENING 1956 CT COLONOGRAPHY - COLON CA SCREENING 1955 FIT - COLON CA SCREENING 1955 FLEX SIG - COLON CA SCREENING 1955 LIPID TESTING 1955 MAMMOGRAM 1955 HEPATITIS C SCREENING 10/05/1974 DTAP/TDAP/TD VACCINES (1 - Tdap) 10/10/1975 PNEUMOCOCCAL VACCINE 50+ (1 of 1 - PCV) 2006 ZOSTER VACCINE (1 of 2) 2006 COLON MONITORING 02/27/2023 02/27/2013 COLONOSCOPY - COLON CA SCREENING 02/27/2023 02/28/20 13 Colorectal Cancer Screening 02/27/2023 COVID-19 VACCINE (1 - 2023-2 5 season) 2024 DEPRESSION SCREENING 07/10/2024 INFLUENZA VACCINE (Season Ended) 2025 Respiratory Syncytial Virus (RSV) Vaccine Pt: or over 60 yrs (1 - 1-dose 75+ series) 10/10/2031 HEPATITIS B VACCINE Aged Out No longe r eligible based on patient's age to complete this topic HIB VACCINE Aged Out No longer eligi ble based on patient's age to complete this topic HPV VACCINE Aged Out No longer eligi ble based on patient's age to complete this topic MENINGOCOCCAL (Group B) VACC INE SHARED DECISION-MAKING Aged Out No longer eligibl e based on patient's age to complete this topic MENINGOCOCCAL GROUPS A/C/Y/W VACCINE Aged Out No longer eligible b ased on patient's age to complete this topic Procedures Procedure Name Priority Date/Time Associated Diagnosis Comments COLONOSCOPY Routine 02/27/2013 from Last 3 Months or Most Recently Relevant to Health Maintenance Results * COLONOSCOPY (02/27/2013) Cabrera Andre MD GENERIC SURGICAL HISTORY Fin al Result from Last 3 Months or Most Recently Relevant to Health Maintenance Insurance [facility] MEDICARE [facility] Care Teams Check Processor Relationship Specialty Start Date End Date Donal Serrano MD [address] [place] [address] PCP - General Internal Medicine 11/15/17
--- OUTSIDE RECORDS SUMMARY | 2024-12-10 08:57 | XMS_ITS | Continuity of Care Document ---
Author Organization [facility] Address [address] [place] [address] Phone Care Team Providers Care Market Gardener Name Role Phone [facility], [facility] Unavailable Unavail able Jose Bacon Unavailable Unavailable [...] Diagnoses Date Provider Providers Copied on Encounter [facility], [address] [place] [address] [address], [place], [place], [address], [place] tel:[phone] SEC [facility] No Information 0-200 7 [facility] . [address], [address], [place], [place], [address], [place]. tel:[phone] Referring Provider: Gilles Kauffman, [address] [place] [address] [address], [place], [address]. tel:[phone] sulting Provider: Jose Bacon, [address] [place] [address], [place], [address]. tel:[phone] [facility], [address], [place], [place], [address], [place] tel:[phone] SEC [facility] Corporate Center No Information 7 Rayne Campoverde. [address] , [address], [place], [address], [place]. tel:[phone] Office/outpat ient Visit, [facility], [address], [place], [place], [address], [place] tel:[phone] SEC [facility] Professional No Information 7 Katina Acevedo. [address] [facility] [address], [address], [place], [address], [place]. tel:[phone] Office/outpat ient Visit, [facility], [address], [place], [place], [address], [place] tel:[phone] SEC [facility] Professional No Information 7 Katina Acevedo. [address], [address], [place], [address], [place]. tel:[phone] Office/outpat ient Visit, [facility], [address], [place], [place], [address], [place] tel:[phone] SEC [facility] Professional No Information 7 Katina Acevedo. [address], [address], [place], [address], [place]. tel:[phone] Referring Provider: Kevin Kauffman, [address], [place], [address]. tel:[phone] [facility], [address], [place], [place], [address], [place] tel:[phone] SEC [facility] Corporate Center No Information 7 Betzy Brown. [address] , [address], [place], [address], [place]. tel:[phone] Family History Family Member Type Diagnosis Age At Onset No Information Payers Payer name Insurance type Covered green party ID Authoriza tion(s) No Information Social History [...]
[2024-12-10 09:09] LABS: Basophils Absolute Auto 0.1 K/mm3 (0.0-0.1); Basophils Percent Auto 0.8 % (0.2-1.2); Eosinophils Absolute Auto 0.1 K/mm3 (0-0.3); Eosinophils Percent Auto 1.9 % (0-4.4); Hematocrit 42.3 % (37.0-47.0); Immature Granulocyte Absolute 0.03 K/mm3 (0.00-0.031); Immature Granulocyte Percent A 0.4 % (0-0.5); Lymphocytes Absolute Auto 2.11 K/mm3 (0.9-3.2); Lymphocytes Percent Auto 29.4 % (18.3-44.2); Mean Corpuscular HGB Conc 33.1 g/dl (32-36); Mean Corpuscular Hemoglobin 31.1 pg (26-34); Mean Platelet Volume 9.8 fl (7.4-10.4); Monocytes Absolute Auto 0.6 K/mm3 (0.1-0.6); Monocytes Percent Auto 7.9 % (2.6-8.5); Neutrophils Absolute Auto 4.3 K/mm3 (1.3-6.7); Neutrophils Percent Auto 59.6 % (45.5-73.1); Platelet Count Result 188 k/mm3 (150-375); Red Cell Distribution Width 12.6 % (11.5-14.5); White Blood Count 7.2 K/mm3 (4.5-10.0)
[2024-12-10 10:33] LABS: Vitamin D 25 Hydroxy 19.8 ng/mL
[2024-12-10 14:00] LABS: Alanine Aminotransferase 29 U/L (6-35); Albumin Level 4.4 g/dL (3.5-5.1); Alkaline Phosphatase 83 U/L (38-126); Anion Gap 8 mmol/L (4-12); Aspartate Amino Transferase 33 U/L (14-36); Bilirubin,Total 0.7 mg/dL (0.2-1.3); Blood Urea Nitrogen 17 mg/dL (7-17); Calcium 9.3 mg/dL (8.4-10.2); Carbon Dioxide 26 mmol/L (22-30); Chloride 106 mmol/L (98-107); Cholesterol 230 mg/dL (0-200); Estimated Glomerular Filt Rate > 60; Glucose 112 mg/dL (65-110); HDL Direct 44 mg/dL; Magnesium 2.2 mg/dL (1.6-2.3); Potassium 4.1 mmol/L (3.4-5.0); Sodium 140 mmol/L (137-145); Total Protein 7.6 g/dL (6.3-8.2); Triglycerides 188 mg/dL (<150)
[2024-12-10 14:14] LABS: LDL Cholesterol Direct 135 mg/dL
[2024-12-10 14:22] LABS: Hemoglobin A1C 5.3 % (<5.7)
[2024-12-16 19:33] LABS: Apolipoprotein B 130 mg/dL
== END 2024-12-10 08:46 | disposition home or self-care (01) ==
PROVIDERS: PCP Family Medicine; Visit Provider Family Medicine
DX: M25.572 Pain in left ankle and joints of left foot (principal); Z79.899 Other long term (current) drug therapy; I10 Essential (primary) hypertension; I71.9 Aortic aneurysm of unspecified site, without rupture; E11.9 Type 2 diabetes mellitus without complications; E66.01 Morbid (severe) obesity due to excess calories; E66.9 Obesity, unspecified; E55.9 Vitamin D deficiency, unspecified; E03.9 Hypothyroidism, unspecified
CPT/HCPCS: 36415; 73610; 80053; 80061; 82172; 82306; 82607; 83036; 83735; 84443; 85025

== ENCOUNTER 2025-05-15 01:15 | Day surgery (SDC) | payer MEDICARE, SELFPAY ==
--- OUTSIDE RECORDS SUMMARY | 2025-04-07 07:26 | XMS_ITS | Continuity of Care Document ---
Author Organization [facility] Address [address] [place] [address] Phone Care Team Providers Care Pm Technician Name Role Phone Dago Monge MD, FACS Unavailable Unavailab le Procedures Procedure Date Progressive Lens, Plastic Frames Deluxe Tint Photochromatic, Plastic Tax - Medical Eye Exam & Treatment Refraction Office/outpatient Visit, Est Office/outpatient Visit, Est Office/outpatient Visit, Est Eye Exam Established Pt Advance Directives Directive Yes / No Effective Date File Name No Information Encounters Encounter Description Practice Location Reason(s) For Visit Diagnoses Date Provider Providers Copied on Encounter [facility], [address], [place], [place], [address], [place] tel:[phone] [address] [place] No Information 5 Mariposa Loza. [address], [address], [place], [place], [address], [place]. tel:[phone] [facility], [address], [place], [place], [address], [place] tel:[phone] SEC [facility] Corporate Center No Information [address] Optical Shop [facility] . [address] [facility], [address], [place], [place], [address], [place]. tel:[phone] Referring Provider: Gilles Kauffman, [address], [place], [address]. tel:[phone] sulting Provider: Jose Bacon, [address], [place], [address]. tel:[phone] [facility], [address] [place] [address] [address], [place], [place], [address], [place] tel:[phone] SEC [facility] Corporate Center No Information 0 200 7 Rayne Campoverde. [address] [facility] , [address], [place], [address], [place]. tel:[phone] Office/outpat ient Visit, [facility], [address] [place] [address] [address], [place], [place], [address], [place] tel:[phone] Professional No Information 7 Katina Acevedo. [address], [place], [address], [place]. tel:[phone] Office/outpat ient Visit, [facility], [address], [place], [place], [address], [place] tel:[phone] Professional No Information 0 7 Katina Acevedo. [address], [address], [place], [address], [place]. tel:[phone] Office/outpat ient Visit, [facility], [address] [place] [address] [address], [place], [place], [address], [place] tel:[phone] Professional No Information 7 Katina Acevedo. [address], [place], [address], [place]. tel:[phone] Referring Provider: Kevin Kauffman, [address] [facility] [facility] [address], [place], [address]. tel:[phone] [facility], [address], [place], [place], [address], [place] tel:[phone] SEC [facility] No Information [address] Anamóscar Sanjeevwanda. [address] [address] [facility], [address], [place], [address], [place]. tel:[phone] Family History Family Member Type Diagnosis Age At Onset No Information Payers Payer name Insurance type Covered alliance party ID Authoriza tion(s) No Information Social [...]
[2025-05-01 14:19] VITALS: BMI 43.4
[2025-05-15 09:45] VITALS: BP 144/73; PULSE 74; RESP 16; TEMP 36; O2SAT 95
[2025-05-15] MEDS: LACTATED RINGERS 1,000 ML 150 ML IV CONT (09:51)
--- NOTE | 2025-05-15 09:52 | P.PNAN_ITS ---
Anes - Initial Pre Proc Eval Procedure: Operation Date: 05/15/25 11:00 Proposed Procedures p Screening Colonoscopy - Darrick Veliz MD Date/Time: 05/15/25 09:52 Surgeon: Darrick Veliz MD Pre Op Diagnosis: Encounter for screening for malignant neoplasm of Patient Data Age: 69 Gender: F Height: 1.6 m Weight: 114.4 kg Last Vital Signs Temp 36.0 C L 05/15/25 09:45 Pulse 74 05/15/25 09:45 Resp 16 05/15/25 09:45 BP 144/73 H 05/15/25 09:45 Pulse Ox 95 05/15/25 09:45 O2 Del Method Room Air 05/15/25 09:45 Allergies Allergy/AdvReac Type Severity Reaction Status Date / Time pentazocine (From Talwin) Allergy Severe Nausea Verified 05/15/25 09:43 ciprofloxacin Allergy Unknown BLISTERS Verified 05/15/25 09:43 metronidazole (From Flagyl) Allergy Unknown blisters Verified 05/15/25 09:43 propoxyphene (From Allergy Unknown nausea Verified 05/15/25 09:43 Darvocet-N) codeine AdvReac Severe N/V Verified 05/15/25 09:43 Home Medications ?Medication ?Instructions ?Recorded ?Confirmed ?Type omeprazole 20 mg capsule,delayed 20 mg PO DAILY 05/15/25 History release ezetimibe 10 mg tablet See Rx Instructions .Route 0 07/13/22 05/15/25 Rx .COMPLEX #90 tabs levothyroxine 75 mcg tablet 75 mcg PO DAILY #90 tabs 0 12/26/22 05/15/25 Rx venlafaxine 75 mg tablet 75 mg PO DAILY 04/10/2301/01 History buspirone 7.5 mg tablet mg PO 02/20/24 02/12/25 Hist ory losartan 50 mg tablet mg PO DAILY 02/20/24 5 History atenolol 50 mg tablet 25 mg PO DAILY 04/22/2401/01 History albuterol sulfate 90 mcg/actuation 1 - 2 puff inhalati on Q4-6H PRN 05/28/24 05/01/25 Rx aerosol inhaler shortness of breath or wheez ing #8.5 grams fluticasone propionate 44 1 inh inhalation Q12H #10.6 grams 05/28/24 05/15/25 Rx mcg/actuation HFA aerosol inhaler tirzepatide (weight loss) 7.5 7.5 mg (0.5 mL) subcut W EEKLY #2 mL 04/22/25 05/01/25 Rx mg/0.5 mL subcutaneous solution (Zepbound) Patient hx anesthesia problems: none Family hx anesthesia problems: none Results Review: All pre-operative results and documents have been reviewed as part of the pre- operative evaluation. [facility] Past Medical History Medical History Screening for breast cancer Screening mammogram, encounter for Diverticulitis (~04/2018) removed 1 foot of bowel COVID-19 Close exposure to COVID-19 virus Obesity (BMI 30-39.9) Arthritis Depression Hypothyroidism Diabetes Kidney stones Diarrhea Constipation GERD (gastroesophageal reflux disease) High cholesterol Sleep apnea Wears glasses Vertigo Dizziness Light headedness Claustrophobia ОЛЕГ (obstructive sleep apnea) Recurrent infections History of tobacco abuse Shortness of Breath Asthma Essential hypertension Fibromyalgia Hyperlipemia, mixed ОЛЕГ on CPAP Surgical History Surgical History Status post right knee replacement History of breast biopsy (~1979) left breast--benign History of nasal septoplasty (~1979) History of right salpingo-oophorectomy (~1983) History of total abdominal hysterectomy (~1978) ANN w/LSO History of right knee surgery x2 History of surgery on wrist right wrist--ganglion cyst fractured wrist History of gastrointestinal surgery (~04/09/18) one foot of bowel removed History of elbow surgery (~06/10/15) left elbow--ulna History of shoulder surgery (~2008) History of neck surgery 1997, 2009, 2010 S/P total knee arthroplasty Family History Family History Sibling Family history of primary malignant neoplasm of liver Family history of lung cancer Carcinoma of colon Diabetes mellitus 6 sisters brother Father Alcoholism Depression Heart disease Hypertension Mother Depression Heart disease Hypertension Diabetes mellitus Osteoporosis Other Arthritis Asthma Breast cancer Cerebrovascular accident Family history of allergic disorder Family history of cardiovascular disease Family history of chronic obstructive pulmonary disease Family history of kidney disease Family history of malignant neoplasm Family history of osteoarthritis Family history of osteoporosis High cholesterol Lung disease Neuropathy Social History Social History Smoking packs per day: 1 Smoking cigarettes per day: 20.0 Years smoked: 30 Smoking pack-years: 30.00 Smoking status: Former smoker Tobacco type: cigarettes Second hand tobacco smoke exposure: No Smoking end date: 07/10/04 Alcohol intake: current Drinks per week: 4 Alcohol use details: occ. Substance use: never Substance use type: does not use Lack of Transportation: No Lack of Food: Never True Current Housing: I Have Housing Concerned About Future Housing: No Difficulty Paying Gas/Electric Bills: No Difficulty Paying for Meds: No Currently Unemployed: No Education: High School Diploma/GED Difficulty w/ Childcare or Family Care: No Living arrangements: with family Additional living arrangements comments: Occupation/Education: retired Gender identity (if verbalized by the patient): Female Sexual Orientation (if Verbalized by the Patient): Straight or Heterosexual Spiritual care concerns: No Anes - Eval Final PreProcedure Day of Procedure 05/15/25 09:52 Patient weight: morbidly obese Heart: regular rate and rhythm Lungs: clear to auscultation Airway: Mallampati scale class II Neurological: alert and oriented Last oral intake: >/= 8 hours ASA classification: III Emergent: no Anesthetic plan: proceed Anesthesia type and monitoring: general GIVS and standard monitoring Results Review: All pre-operative results and documents have been reviewed as part of the pre- operative evaluation. Informed Consent: The patient's anesthetic plan and its attendant risks and benefits were discussed with the patient/family/POA. Questions were solicited and answers provided to the satisfaction of the patient/family/POA.
--- NOTE | 2025-05-15 09:52 | PM.HPGS ---
History of Present Illness History of Present Illness Consent: Risks, benefits, and alternatives have been discussed and questions answered. Patient agrees to proceed with procedure. Chief complaint: Encounter for screening for malignant neoplasm of Narrative: Desiree Ghosh is a 69 year old female here for screening colonoscopy, about 6-7 years ago had complicated diverticulitis that required partial colectomy Review of Systems Review of Systems: All systems reviewed & are unremarkable except as noted in HPI and below PMFSH Past Medical History Medical History Screening for breast cancer Screening mammogram, encounter for Diverticulitis (~04/2018) removed 1 foot of bowel COVID-19 Close exposure to COVID-19 virus Obesity (BMI 30-39.9) Arthritis Depression Hypothyroidism Diabetes Kidney stones Diarrhea Constipation GERD (gastroesophageal reflux disease) High cholesterol Sleep apnea Wears glasses Vertigo Dizziness Light headedness Claustrophobia ОЛЕГ (obstructive sleep apnea) Recurrent infections History of tobacco abuse Shortness of Breath Asthma Essential hypertension Fibromyalgia Hyperlipemia, mixed ОЛЕГ on CPAP Surgical History Surgical History Status post right knee replacement History of breast biopsy (~1979) left breast--benign History of nasal septoplasty (~1979) History of right salpingo-oophorectomy (~1983) History of total abdominal hysterectomy (~1978) ANN w/LSO History of right knee surgery x2 History of surgery on wrist right wrist--ganglion cyst fractured wrist History of gastrointestinal surgery (~04/09/18) one foot of bowel removed History of elbow surgery (~06/10/15) left elbow--ulna History of shoulder surgery (~2008) History of neck surgery 1997, 2009, 2010 S/P total knee arthroplasty Family History Family History Sibling Family history of primary malignant neoplasm of liver Family history of lung cancer Carcinoma of colon Diabetes mellitus 6 sisters brother Father Alcoholism Depression Heart disease Hypertension Mother Depression Heart disease Hypertension Diabetes mellitus Osteoporosis Other Arthritis Asthma Breast cancer Cerebrovascular accident Family history of allergic disorder Family history of cardiovascular disease Family history of chronic obstructive pulmonary disease Family history of kidney disease Family history of malignant neoplasm Family history of osteoarthritis Family history of osteoporosis High cholesterol Lung disease Neuropathy Social History Social History Smoking packs per day: 1 Smoking cigarettes per day: 20.0 Years smoked: 30 Smoking pack-years: 30.00 Smoking status: Former smoker Tobacco type: cigarettes Second hand tobacco smoke exposure: No Smoking end date: 07/10/04 Alcohol intake: current Drinks per week: 4 Alcohol use details: occ. Substance use: never Substance use type: does not use Lack of Transportation: No Lack of Food: Never True Current Housing: I Have Housing Concerned About Future Housing: No Difficulty Paying Gas/Electric Bills: No Difficulty Paying for Meds: No Currently Unemployed: No Education: High School Diploma/GED Difficulty w/ Childcare or Family Care: No Living arrangements: with family Additional living arrangements comments: Occupation/Education: retired Gender identity (if verbalized by the patient): Female Sexual Orientation (if Verbalized by the Patient): Straight or Heterosexual Spiritual care concerns: No Meds Home Medications and Allergies Home Medications ?Medication ?Instructions ?Recorded ?Confirmed ?Type omeprazole 20 mg capsule,delayed 20 mg PO DAILY 01/07/22 05/15/25 History release ezetimibe 10 mg tablet See Rx Instructions .Route 07/13/22 05/15/25 Rx .COMPLEX #90 tabs levothyroxine 75 mcg tablet 75 mcg PO DAILY #90 tabs 12/26/22 05/15/25 Rx venlafaxine 75 mg tablet 75 mg PO DAILY 04/10/23 05/15/25 History buspirone 7.5 mg tablet mg PO 02/20/24 02/12/25 History losartan 50 mg tablet mg PO DAILY 02/20/24 02/12/25 History atenolol 50 mg tablet 25 mg PO DAILY 04/22/24 05/15/25 History albuterol sulfate 90 mcg/actuation 1 - 2 puff inhalation Q4-6H PRN 05/28/24 05/01/25 Rx aerosol inhaler shortness of breath or wheezing #8.5 grams fluticasone propionate 44 1 inh inhalation Q12H #10.6 grams 05/28/24 05/15/25 Rx mcg/actuation HFA aerosol inhaler tirzepatide (weight loss) 7.5 7.5 mg (0.5 mL) subcut WEEKLY #2 mL 04/22/25 05/01/25 Rx mg/0.5 mL subcutaneous solution (Zepbound) Allergies Allergy/AdvReac Type Severity Reaction Status Date / Time pentazocine (From Talwin) Allergy Severe Nausea Verified 05/15/25 09:43 ciprofloxacin Allergy Unknown BLISTERS Verified 05/15/25 09:43 metronidazole (From Flagyl) Allergy Unknown blisters Verified 05/15/25 09:43 propoxyphene (From Allergy Unknown nausea Verified 05/15/25 09:43 Darvocet-N) codeine AdvReac Severe N/V Verified 05/15/25 09:43 Vital Signs Vital Signs - 24 hr 05/15/25 09:45 Temperature 96.8 F L Pulse Rate 74 Respiratory Rate 16 Blood Pressure 144/73 H Pulse Oximetry 95 Oxygen Delivery Room Air Exam Const: General: comfortable, no acute distress and obese HENMT: Face/Nose/Sinus: Normal nares present Eyes: General: appearance normal, both eyes and all related structures Neck: Neck: no JVD Resp: Auscultation: clear to auscultation bilaterally Cardio: Rate: regular rate Rhythm: regular rhythm GI: Inspection: non-distended GI Palp: Yes Soft to palpation Skin: General skin exam: normal color Extrem: General: normal to inspection Psych: Mental Status: mental status grossly normal Assessment and Plan Assessment and plan (1) Colon cancer screening: Code(s): Z12.11 - Encounter for screening for malignant neoplasm of colon Status: Acute Assessment and Plan: colonoscopy (2) S/P colon resection: Code(s): Z90.49 - Acquired absence of other specified parts of digestive tract Status: Acute
--- NOTE | 2025-05-15 10:07 | S_PTH ---
PATIENT: Desiree Ghosh LOC: [facility] Burr#:[id number] AGE/SX: 69/F ROOM: RE05/15/[address]: Darrick Veliz MD : [id number] BED: DIS: 05/15/2025 SPEC #: [id number] RECD: 05/15/25 11:41 STATUS: OFE REQ #: [id number] MONSERRAT: 05/15/25 10:[address]: Darrick Veliz DEPT: [facility] Surgical RECD BY: Navya Segura ENTERED: 05/15/25 11:41 SP TYPE: Surgical OTHR DR: Mark Ocampo MD Tissues: A - Colon Polypectomy Procedures: Hematoxylin and Eosin Stain Gross and Microscopic Level 4
[2025-05-15 10:08] VITALS: BP 94/56; PULSE 62; RESP 16; O2SAT 97
[2025-05-15 10:17] VITALS: BP 100/55; PULSE 57; RESP 16; O2SAT 97
[2025-05-15 10:27] VITALS: BP 110/61; PULSE 57; RESP 16; O2SAT 94
--- OUTSIDE RECORDS SUMMARY | 2025-05-15 16:08 | XMS_ITS | Clinical Summary ---
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 There are scattered fibroglandular elements in both [...] contacted by letter. Jose Armando Mosher M.D. [facility]:11/10/2016 08:07:57 copy to: Donal Ferrari M.D., ph: [phone], fax: [phone] letter sent: Normal Exam Mammogram BI-RADS: 1 Negative Radiologist: JOSE ARMANDO MOSHER M.D. Attending: ANTONIO BOB M.D. Requesting: ANTONIO BOB M.D. Requesting Requesting ID: [id number] Attending Attending ID: [id number] Completed Time: 11/09/2016 11:48 AM Dictated Time: N/A Transcribed Time: 11/10/2016 08:26 AM Signed by: JOSE ARMANDO MOSHER M.D. on 11/10/2016 08:26 AM Report To 1 ID: [id number] Report To 1 Name: DONAL FERRARI Report [...] Comparison is made to exams dated: 11/10/2015 [facility] and 07/16/2014 [facility]. There are scattered fibroglandular elements in both [...] contacted by letter. Jose Armando Mosher M.D. [facility]:11/10/2016 08:07:57 copy to: Donal Ferrari M.D., ph: [phone], fax: [phone] letter sent: Normal Exam Mammogram BI-RADS: 1 Negative Radiologist: JOSE ARMANDO MOSHER M.D. Attending: ANTONIO BOB M.D. Requesting: ANTONIO BOB M.D. Requesting Requesting ID: [id number] Attending Attending ID: [id number] Completed Time: 11/09/2016 11:48 AM Dictated Time: N/A Transcribed Time: 11/10/2016 08:26 AM Signed by: JOSE ARMANDO MOSHER M.D. on 11/10/2016 08:26 AM Report To 1 ID: [id number] Report To 1 Name: DONAL FERRARI Report To 1 FAX: Report To 2 ID: Report To 2 Name: , Report To 2 FAX: Report To 3 ID: Report To 3 Name: , Report To 3 FAX: NextGen Order #: us Antonio Bob MD IMG MAMMO PROCEDURES Final Result from Last 3 Months or Most Recently Relevant to Health Maintenance Insurance AETNA [facility] HMO MEDICARE [facility] Address: [address] [address] [place] [address] Care Teams Chain Sales Representative Relationship Specialty Start Date End Date Donal Ferrari MD PCP - General 11/09/16
--- OUTSIDE RECORDS SUMMARY | 2025-05-15 16:08 | XMS_ITS | Clinical Summary ---
Author Organization [facility] Address [address] [place] [address] Care Team Providers Care Crystal Cutter Name Role Phone Trey Blount MD Primary Care Provider [phone] Allergies Active Allergy Reactions Criticality Noted Date [...] (12/28/2022): Added automatically from request for surgery [id number] Infrarenal abdominal aortic aneurysm (AAA) witho ut rupture 12/19/2022 Splenic artery aneurysm 12/19/2022 Morbid obesity with body mass index of 40.0-44.9 in adult 02/22/2016 Family History Medical History Relation Comments [...] (1 - Tdap) 10/10/1975 Mammogram Screening 1996 Pneumococcal Vaccine: 50+ Years (1 of 1 - PCV) 2006 Annual Medicare Wellness Visit 2021 Dexa Scan (General) 2021 COVID-19 Vaccine (2 - season) 2025 11/13/2020 Influenza Adult (#1) 2025 04/20/2020, 08/15/2019, 04/24/2018, Additional history exists RSV Immunization or 60+ Years (1 - 1-dose 75+ series) 10/10/2031 Zoster Vaccines Completed 08/16/2020, 04/20/2020 Hepatitis A Vaccines Aged Out No long er eligible based on patient's age to complete this topic Meningococcal B Vaccine Aged Out No l onger eligible based on patient's age to complete this topic Meningococcal Vaccine Aged Out No chi fifi eligible based on patient's age to complete this topic RSV Immunizations Under 20 Months Aged Out No longer eligible based on patient's age to complete this topic Insurance MEDICARE AETNA Care Teams Crystal Cutter Relationship Specialty Start Date End Date Trey Blount MD [address] [place] [address] PCP - General FAMILY MEDICINE SPORTS MEDICINE 10/31/22
--- OUTSIDE RECORDS SUMMARY | 2025-05-15 16:08 | XMS_ITS | Clinical Summary ---
Author Organization [facility] Address [address] [place] [address] Care Team Providers Care Fundraising Sale Representative Name Role Phone Donal Serrano MD Primary Care Provider [phone] Source Comments [facility],non-[facility] Affiliates and Associated Physician Practices is amultiple site organization consisting of ambulatory clinics and hospital sitesin [place], [place], [place] and [place]. This disclosure is being madepursuant to the Care Everywhere program and may not contain all information available regarding this patient. 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
--- OUTSIDE RECORDS SUMMARY | 2025-05-15 16:08 | XMS_ITS | Encounter Summary ---
Author Organization [facility] Address [address] [place] [address] Care Team Providers Care Mechanic Sound Technician Name Role Phone Trey Blount MD Primary Care Provider [phone] Encounter Details Date Type Department Care Team (Late st Contact Info) Description 12/28/2022 Prep for Procedure [facility] [address] [place], [place] [id number] Myles Kirby MD [facility] [address] [place], [place] [id number] Social History Tobacco Use Types Packs/Day Years [...] Diagnoses Diagnosis AAA (abdominal aortic aneurysm) without rupture- Primary Abdominal aneurysm without mention of rupture documented in this encounter Care Teams Mechanic Sound Technician Relationship Specialty Start Date End Date Trey Blount MD [address] [place] [address] PCP - General FAMILY MEDICINE SPORTS MEDICINE 10/31/22 documented as of this encounter
--- OUTSIDE RECORDS SUMMARY | 2025-05-15 16:08 | XMS_ITS | Patient Health Record ---
Author Organization [email or web address] Address [address] [place] [address] [address] [place] [address] Care Team Providers Care Charge Preparation Technician Name Role Phone Israel Mitchell MD Primary Care Provider Bill Cline Unavailable [phone] Allergies Allergen (clinical drug ingredient) Drug/Non Drug Allergy documented on EMR Reaction Allergy Type Onset Date Status Penicillin dizziness Drug Allergy 07/10/2023 activ e Reason For Referral No Information Problems Problem Type SNOMED Code ICD Code Onset Dates Problem Status W/U Status Risk Notes Problem History of polyp of colon (situation) (610874013) History of colon polyps (Z86.010) Active confirmed Problem Gastroesophageal reflux disease (disorder) (872534933) Chronic GERD (K21.9) Active confirmed Encounters Encounter Location Date Provider Diagnosis [facility], [address] [place] [address] 12/17/2024 Bill Sim Plan Of Treatment No Information Insurance Providers Payer Name Payer Address Payer Phone Subscriber Number Group Number Insured Name Patient Relationship to Insured Coverage Start Date Coverage End Date Aetna Choice Pos II E2 [address] [place] [address] [id number] Federico Ghosh Spouse - patient is the spouse of the insured 3 [facility] Choice/ch oice Plus E2 [address] [address] [place] [address] [id number] Federico Ghosh Spouse - patient is the spouse of the insured 4 Medicare E2 [address] [address] [place] [address] [id number] Desiree Ghosh Self - patient is the insured Medical (General) History Medical History History ICD Code Asthma Sleep Apnea Hypertension Diabetes Thyroid Disease Diverticulosis Fatty Liver Diverticulitis GERD IBS Hemorrhoids Surgical History Surgery Date(Month/Year) Cholecystectomy Tonsillectomy Breast Biopsy Sinus Surgery Hysterectomy Colon / Bowel Surgery Cosmetic Surgery Joint Replacement
== END 2025-05-15 10:37 | disposition home or self-care (01) ==
PROVIDERS: PCP Family Medicine; Visit Provider Internal Medicine Gastroenterology
PROC: 0DJD8ZZ Inspection of Lower Intestinal Tract, Via Natural or Artificial Opening Endoscopic (ICD-10-PCS; CPT 45378; principal; 2025-05-15 11:00)
DX: Z12.11 Encounter for screening for malignant neoplasm of colon (principal); D12.2 Benign neoplasm of ascending colon; K64.8 Other hemorrhoids; I10 Essential (primary) hypertension; E03.9 Hypothyroidism, unspecified; E11.9 Type 2 diabetes mellitus without complications; K21.9 Gastro-esophageal reflux disease without esophagitis; G47.33 Obstructive sleep apnea (adult) (pediatric); J45.909 Unspecified asthma, uncomplicated; E78.00 Pure hypercholesterolemia, unspecified; M79.7 Fibromyalgia; F32.A Depression, unspecified; F40.240 Claustrophobia; M19.90 Unspecified osteoarthritis, unspecified site; E66.01 Morbid (severe) obesity due to excess calories; Z68.41 Body mass index [BMI] 40.0-44.9, adult; Z79.51 Long term (current) use of inhaled steroids; Z79.85 Long-term (current) use of injectable non-insulin antidiabetic drugs; Z99.89 Dependence on other enabling machines and devices; Z98.890 Other specified postprocedural states; Z98.0 Intestinal bypass and anastomosis status; Z90.49 Acquired absence of other specified parts of digestive tract; Z98.1 Arthrodesis status; Z87.891 Personal history of nicotine dependence; Z87.442 Personal history of urinary calculi; Z87.19 Personal history of other diseases of the digestive system; Z80.0 Family history of malignant neoplasm of digestive organs; Z80.1 Family history of malignant neoplasm of trachea, bronchus and lung; Z80.3 Family history of malignant neoplasm of breast; Z82.49 Family history of ischemic heart disease and other diseases of the circulatory system
CPT/HCPCS: 45385; 88305; J2003; J2704; J7120

== ENCOUNTER 2025-05-28 10:13 | Outpatient (CLI) | payer MEDICARE, SELFPAY ==
[2025-05-28 11:01] LABS: Add Urine Microscopic? YES; Appearance Urine Cloudy (Clear); Glucose Urine UA Negative (Negative); Leukocyte Esterase Ur 1+ LEU/UL (Negative); Nitrate Urine Negative (Negative); Non Pathogenic Casts 0-2; Specific Grav Ur 1.020 (1.001-1.035)
[2025-05-28 11:36] LABS: Hematocrit 40.4 % (37.0-47.0); Hemoglobin 13.5 g/dL (12.0-15.0); Immature Granulocyte Percent A 0.4 % (0-0.5); Lymphocytes Absolute Auto 2.19 K/mm3 (0.9-3.2); Mean Corpuscular HGB Conc 33.4 g/dl (32-36); Mean Corpuscular Hemoglobin 31.5 pg (26-34); Mean Corpuscular Volume 94.2 fl (80-100); Nucleated Red Blood Cells Absolute Auto 0.000 K/mm3 (0.0-0.012); Nucleated Red Blood Cells Perc 0.0 % (0.0-0.2); Platelet Count Result 213 k/mm3 (150-375); Red Blood Count 4.29 M/mm3 (4.2-5.4); White Blood Count 7.7 K/mm3 (4.5-10.0)
[2025-05-28 11:54] LABS: Alanine Aminotransferase 18 U/L (6-35); Albumin Level 4.3 g/dL (3.5-5.1); Alkaline Phosphatase 88 U/L (38-126); Anion Gap 6 mmol/L (4-12); Aspartate Amino Transferase 24 U/L (14-36); Bilirubin,Total 0.6 mg/dL (0.2-1.3); Blood Urea Nitrogen 16 mg/dL (7-17); Calcium 8.9 mg/dL (8.4-10.2); Carbon Dioxide 26 mmol/L (22-30); Chloride 106 mmol/L (98-107); Estimated Glomerular Filt Rate > 60; Glucose 100 mg/dL (65-110); Potassium 3.9 mmol/L (3.4-5.0); Sodium 138 mmol/L (137-145); Total Protein 7.3 g/dL (6.3-8.2)
[2025-05-28 12:12] LABS: Free T4 Free Thyroxine 1.21 ng/dL (0.78-2.19)
[2025-05-28 12:30] LABS: Thyroid Stimulating Hormone 0.959 uIU/mL (0.465-4.680)
[2025-05-28 12:49] LABS: Vitamin B12 257.0 pg/mL (239-931)
--- OUTSIDE RECORDS SUMMARY | 2025-05-28 14:25 | XMS_ITS | Clinical Summary ---
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 There are scattered fibroglandular elements in [...] 08:07:57 copy to: Donal Ferrari M.D., ph: [phone], fax: [phone] letter sent: Normal Exam Mammogram BI-RADS: 1 Negative Radiologist: JOSE ARMANDO MSOHER M.D. Attending: ANTONIO BOB M.D. Requesting: ANTONIO BOB M.D. Requesting Requesting ID: [id number] Attending Attending ID: [id number] Completed Time: 11/09/2016 11:48 AM Dictated Time: N/A Transcribed Time: 11/10/2016 08:26 AM Signed by: JOSE ARMANDO MOSHER M.D. on 11/10/2016 08:26 AM Report To 1 ID: [id number] Report To 1 Name: DONAL FERRARI Report [...] Comparison is made to exams dated: 11/10/2015 [facility] and 07/16/2014 [facility]. There are scattered fibroglandular elements in [...] 08:07:57 copy to: Donal Ferrari M.D., ph: [phone], fax: [phone] letter sent: Normal Exam Mammogram BI-RADS: 1 Negative Radiologist: JOSE ARMANDO MOSHER M.D. Attending: ANTONIO BOB M.D. Requesting: ANTONIO BOB M.D. Requesting Requesting ID: [id number] Attending Attending ID: [id number] Completed Time: 11/09/2016 11:48 AM Dictated Time: N/A Transcribed Time: 11/10/2016 08:26 AM Signed by: JOSE ARMANDO MOSHER M.D. on 11/10/2016 08:26 AM Report To 1 ID: [id number] Report To 1 Name: DONAL FERRARI Report To 1 FAX: Report To 2 ID: Report To 2 Name: , Report To 2 FAX: Report To 3 ID: Report To 3 Name: , Report To 3 FAX: NextGen Order #: us Antonio Bob MD IMG MAMMO PROCEDURES Final Result from Last 3 Months or Most Recently Relevant to Health Maintenance Insurance AETNA [facility] HMO MEDICARE Care Teams Vice President Pharmacy Relationship Specialty Start Date End Date Donal Ferrari MD PCP - General 11/09/16
--- OUTSIDE RECORDS SUMMARY | 2025-05-28 14:25 | XMS_ITS | Clinical Summary ---
Author Organization [facility] Address [address] [facility] [place] [address] Care Team Providers Care Metal Base Blocker Name Role Phone Donal Serrano MD Primary Care Provider [phone] Source Comments [facility],non-[facility] Affiliates and Associated Physician Practices is amultiple site organization consisting of ambulatory clinics and hospital sitesin [place], [place], [place] and [place]. This disclosure is being madepursuant to the Care Everywhere program and may not contain all information available regarding this patient. 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 Gender Identity Not on file Sexual Orientation [...] DEPRESSION SCREENING 07/10/2024 COVID-19 VACCINE (1 - 2024-2 6 season) 2025 INFLUENZA VACCINE (#1) 2025 Respiratory [...] Most Recently Relevant to Health Maintenance Insurance [facility] MEDICARE UHC MANAGED MEDICARE ADV SELF PAY NO INSURANCE Member Subscriber Plan / Payer (Ef fective for All Dates) Name:Desiree Ghosh Member ID:Not on file Relation to Subscriber:Not on file Name:DESIREE GHOSH Subscriber ID:Not on file (Home) Address: [address] [place] [id number] Payer ID:Not on file Group ID:Not on file Type:Self Pay Address: [place], [place] [facility] Care Teams Metal Base Blocker Relationship Specialty Start Date End Date Donal Serrano MD [address] [place] [address] PCP - General Internal Medicine 11/15/17
--- OUTSIDE RECORDS SUMMARY | 2025-05-28 14:25 | XMS_ITS | Encounter Summary ---
Author Organization [facility] Address [address] [place] [address] Care Team Providers Care Residential Solar Consultant Name Role Phone Trey Blount MD Primary Care Provider [phone] Encounter Details Date Type Department Care Team (Late st Contact Info) Description 12/28/2022 Prep for Procedure [facility] [address] [place], [place] [phone] Myles Kirby MD [facility] [address] [place], [place] [id number] Social History Tobacco Use Types Packs/Day Years [...] rupture documented in this encounter Care Teams Residential Solar Consultant Relationship Specialty Start Date End Date Trey Blount MD [address] [place] [address] PCP - General FAMILY MEDICINE SPORTS MEDICINE 10/31/22 documented as of this encounter
--- OUTSIDE RECORDS SUMMARY | 2025-05-28 14:25 | XMS_ITS | Clinical Summary ---
Author Organization [facility] Address [address] [place] [address] Care Team Providers Care Baker Chef Name Role Phone Trey Blount MD Primary Care Provider [phone] Allergies Active Allergy Reactions Criticality Noted Date [...] (12/28/2022): Added automatically from request for surgery [id number] Infrarenal abdominal aortic aneurysm (AAA) witho ut [...] this topic Insurance MEDICARE AETNA Care Teams Baker Chef Relationship Specialty Start Date End Date Trey Blount MD [address] [place] [address] PCP - General FAMILY MEDICINE SPORTS MEDICINE 10/31/22
--- OUTSIDE RECORDS SUMMARY | 2025-05-28 14:25 | XMS_ITS | Clinical Summary ---
Author Organization [facility] Address [address] [place] [address] Phone Care Team Providers Care Automation And Controls Instructor Name Role Phone Donal Serrano MD Primary [...] Take 25 mcg by mouth daily early learning teacher. Active venlafaxine (EFFEXOR XR) 150 mg Extended [...] (1 of 1 - PCV) 10/10/19 07 RSV VACCINE (60+ or ) (1 - Risk 50-74 years 1-dose series) 2006 ZOSTER VACCINE (1 of 2) 2006 OSTEOPOROSIS SCREENING 2021 INFLUENZA VACCINE (#1) 2025 Insurance OPTIONS PPO [id number] MEDICARE PART A AND B OPTIONS O [id number] MEDICARE PART A AND B Care Teams Automation And Controls Instructor Relationship Specialty Start Date End Date Donal Serrano MD [address] [place] [phone] PCP - General Internal Medicine 01/27/16
== END 2025-05-28 10:14 | disposition home or self-care (01) ==
PROVIDERS: PCP Family Medicine; Visit Provider Family Medicine
DX: E03.9 Hypothyroidism, unspecified (principal); Z79.899 Other long term (current) drug therapy; I10 Essential (primary) hypertension; I71.9 Aortic aneurysm of unspecified site, without rupture; E78.2 Mixed hyperlipidemia; E11.9 Type 2 diabetes mellitus without complications; E66.01 Morbid (severe) obesity due to excess calories; G47.33 Obstructive sleep apnea (adult) (pediatric); R31.9 Hematuria, unspecified
CPT/HCPCS: 36415; 80053; 81001; 82172; 82306; 82607; 84439; 84443; 85025; 87077; 87086; 87186